=== PATIENT | male | born 1950 | race Caucasian/White ===

== ENCOUNTER → 2017-06-18 13:51 | Outpatient (CLI) | payer OTHER, MEDICARE, SELFPAY ==
--- NOTE | 2017-06-18 14:04 | XR_ITS ---
XR foot RT min 3V HISTORY: ITS.REASON: RT FOOT PAIN ORDERING PHYSICIAN: Jorge Marcum MD PATIENT AGE: 66 years COMPARISON: None FINDINGS: No fracture or dislocation. No lytic or blastic change. There is normal mineralization.. There are moderate osteoarthritic changes of the first metatarsophalangeal joint with bony hypertrophic change. There is a small calcaneal spur. IMPRESSION: Osteoarthritic changes of the first metatarsophalangeal joint
== END ==
PROVIDERS: PCP Family Medicine; Visit Provider Family Medicine
DX: M79.671 Pain in right foot (principal)
CPT/HCPCS: 73630

== ENCOUNTER → 2017-11-30 07:40 | Outpatient (CLI) | payer OTHER, MEDICARE, SELFPAY ==
--- NOTE | 2017-11-30 07:48 | CA_ITS ---
PROCEDURE: 2-D M-mode and color Doppler study INDICATIONS FOR THE TEST: Chest pain COPD Heart Murmur Tobacco Smoking Palpitations Fatigue Syncope Edema HypertensionXDiabetes MellitusX Rheumatic Fever SOB DOEXObesityXHyperlipidemiaX Family History HD Additional History CAD,CABG,CM TDS IN PLAX,PSAX VIEWS PATIENT INFORMATION HEIGHT: 74 WEIGHT:252 GENDER: Male B/P:110/70 2-D/M-MODE INTERPRETATION: 2-D MEASUREMENTS OBSERVED VALUES IN CMS Right Ventricular Dimension (RVDd) 1.5 Interventricular Septum (Thickness)(IVsd) .9 Left Ventricular Internal Dimensions(LVIDd) 6.2 Left Ventricular Posterior Wall (Thickness)(LVPWd) .9 Aortic Root 3.9 Aortic Cusp Separation 1.7 Left Atrial Dimensions (LAD) 3.6 2D 1. Left atrium is mildly enlarged, left ventricle is mildly dilated, there is mild concentric left ventricular hypertrophy, visually estimated ejection fraction approximately 45%, there appears to be inferior wall hypokinesis. Endocardial subsequent poorly visualized, a repeat study with Definity contrast is recommended. 2. The right atrium and right ventricle are normal size and contractility. 3. The aortic valve is minimally thickened and fibrosed. 4. The mitral and tricuspid valve leaflets are minimally thickened. 5. Pulmonic valve is poorly visualized. 6. No significant pericardial effusion noted. DOPPLER INTERROGATION: Doppler interrogation of the aortic, mitral and tricuspid valvular presence of mild mitral and tricuspid regurgitation, tricuspid regurgitant jet velocity is insufficient for calculation of the right ventricular systolic pressure, diastolic parameters are inconclusive. CONCLUSION: 1. Mildly enlarged left atrium, mildly dilated left ventricle, visually estimated ejection fraction of 45% with segmental wall motion abnormality described above, repeat study with Definity contrast is recommended. Diastolic parameters are inconclusive 2. Mild mitral and tricuspid regurgitation. 3. No significant pericardial effusion noted.
[2017-11-30 08:48] LABS: Basophils # 0.1 K/mm3 (0-0.2); Basophils % 0.9 % (0.1-2.0); Eosinophils # 0.2 K/mm3 (0.0-0.4); Eosinophils % 2.5 % (0.1-12.0); Hemoglobin 14.8 g/dL (14.1-18.0); Lymphocytes # 2.1 K/mm3 (0.7-4.5); Lymphocytes % 29.1 K/mm3 (10-50); Mean Corpuscular HGB Conc 32.9 g/dL (31.8-35.4); Mean Corpuscular Hemoglobin 31.7 pg (27.0-31.2); Mean Corpuscular Volume 96.4 fl (80-94); Mean Platelet Volume 7.7 fl (7.4-10.4); Monocytes # 0.5 K/mm3 (0.1-1.0); Monocytes % 6.8 % (1.7-9.3); Neutrophils # 4.4 K/mm3 (1.8-7.8); Neutrophils % 60.8 % (37.0-80.0); Platelet Count 203 K/mm3 (142-424); Red Blood Count 4.67 M/mm3 (4.60-6.20); Red Cell Distribution Width 13.4 % (11.5-17.5); White Blood Count 7.2 K/mm3 (4.8-10.8)
[2017-11-30 09:21] LABS: Alanine Aminotransferase 27 U/L (12-78); Albumin Level 3.9 gm/dL (3.4-5.0); Albumin/Globulin Ratio 1.3 (1.1-1.8); Alkaline Phosphatase 90 U/L (46-116); Anion Gap 13.1 mEq/L (5-15); Aspartate Amino Transferase 16 U/L (15-37); Bilirubin,Total 0.8 mg/dL (0.2-1.0); Blood Urea Nitrogen 15 mg/dL (7-18); Carbon Dioxide 30 mmol/L (21.0-32.0); Chloride 104 mmol/L (98-107); Chol/HDL Ratio 2.4 (1-3.5); Cholesterol 136 mg/dL (140-200); Creatinine,Serum 1.08 mg/dL (0.70-1.30); Estimated Glomerular Filt Rate 68 ml/min (>60); GFR (African American) 83 ML/MIN (>60); Globulin 3.1 gm/dl (1.3-3.2); Glucose 156 mg/dL (74-106); HDL Cholesterol 57 mg/dL (27-67); LDL Cholesterol 67 mg/dL (0-130); Potassium 4.1 mmoL/L (3.5-5.1); Sodium 143 mmol/L (136-145); Thyroid Stimulating Hormone 2.18 uIU/ml (0.358-3.740); Triglycerides 58 mg/dL (30-200); VLDL Cholesterol 12 mg/dL (0-40)
== END ==
PROVIDERS: Family Provider Family Medicine; PCP Family Medicine; Visit Provider Physician Assistant
DX: I25.10 Atherosclerotic heart disease of native coronary artery without angina pectoris (principal); I42.9 Cardiomyopathy, unspecified; I10 Essential (primary) hypertension; R53.83 Other fatigue
CPT/HCPCS: 36415; 80053; 80061; 84443; 85025; 93306

== ENCOUNTER → 2017-12-01 13:13 | Outpatient (CLI) | payer OTHER, MEDICARE, SELFPAY | PROVIDERS: PCP Family Medicine; Visit Provider Physician Assistant | DX: R55 Syncope and collapse (principal); R00.1 Bradycardia, unspecified | CPT/HCPCS: 93005; 93225; 93226 ==

== ENCOUNTER 2017-12-04 01:52 | Observation (INO) ==
[2017-12-04 02:23] LABS: Basophils # 0.1 K/mm3 (0-0.2); Basophils % 0.6 % (0.1-2.0); Eosinophils # 0.2 K/mm3 (0.0-0.4); Eosinophils % 1.8 % (0.1-12.0); Hematocrit 45.9 % (42.0-52.0); Hemoglobin 14.6 g/dL (14.1-18.0); Lymphocytes # 3.1 K/mm3 (0.7-4.5); Lymphocytes % 32.5 K/mm3 (10-50); Mean Corpuscular HGB Conc 31.9 g/dL (31.8-35.4); Mean Corpuscular Hemoglobin 31.1 pg (27.0-31.2); Mean Corpuscular Volume 97.7 fl (80-94); Mean Platelet Volume 7.7 fl (7.4-10.4); Monocytes # 0.7 K/mm3 (0.1-1.0); Monocytes % 7.4 % (1.7-9.3); Neutrophils # 5.4 K/mm3 (1.8-7.8); Neutrophils % 57.6 % (37.0-80.0); Platelet Count 204 K/mm3 (142-424); Red Cell Distribution Width 13.6 % (11.5-17.5); White Blood Count 9.4 K/mm3 (4.8-10.8)
[2017-12-04 02:41] LABS: Anion Gap 11.6 mEq/L (5-15); Blood Urea Nitrogen 11 mg/dL (7-18); Calcium 8.6 mg/dL (8.5-10.1); Carbon Dioxide 28 mmol/L (21.0-32.0); Chloride 103 mmol/L (98-107); Glucose 194 mg/dL (74-106); Potassium 3.6 mmoL/L (3.5-5.1); Sodium 139 mmol/L (136-145)
--- NOTE | 2017-12-04 03:32 | Emergency Department Note ---
ED Disposition Clinical Impression: Chest pain Qualifiers: Chest pain type: precordial pain Qualified Code(s): R07.2 - Precordial pain Disposition: Admitted as Observation Condition on Discharge: Good Referrals: Jorge Marcum MD [Primary Care Provider] - - Critical Care Critical Care Time: No Attestation: On 12/04/17, the high probability of a clinically significant, sudden or life threatening deterioration of the following system(s) required my full and direct attention, intervention and personal management. The time I documented below is in addition to time spent performing reported procedures but includes the following listed in this critical care notation. Medical Decision Making - Medical Records Medical records reviewed: Yes: I reviewed the patient's medical records. - Chauncey Inquiry Pt receiving controlled substance: No Vital Signs: 12/04/17 01:54 12/04/17 02:05 12/04/17 02:46 Temperature 98.1 F Temperature Source Oral Pulse Rate 58 L Pulse Rate [Left Radial] 59 L 58 L Respiratory Rate 18 16 Blood Pressure [Right Arm] 138/79 121/86 Blood Pressure Mean [Right Arm] 98 97 Blood Pressure Source [Right Arm] Automatic Cuff Automatic Cuff Blood Pressure Position [Right Arm] Sitting Sitting 02 Sat by Pulse Oximetry 94 L Oxygen Delivery Method Room Air 12/04/17 02:52 12/04/17 02:57 12/04/17 03:02 Temperature Temperature Source Pulse Rate Pulse Rate [Left Radial] 50 L 48 L 51 L Respiratory Rate Blood Pressure [Right Arm] 68/40 84/54 94/64 Blood Pressure Mean [Right Arm] 49 64 74 Blood Pressure Source [Right Arm] Automatic Cuff Automatic Cuff Blood Pressure Position [Right Arm] Supine Sitting 02 Sat by Pulse Oximetry Oxygen Delivery Method 12/04/17 03:08 Temperature Temperature Source Pulse Rate Pulse Rate [Left Radial] 51 L Respiratory Rate Blood Pressure [Right Arm] 109/60 Blood Pressure Mean [Right Arm] 76 Blood Pressure Source [Right Arm] Automatic Cuff Blood Pressure Position [Right Arm] Sitting 02 Sat by Pulse Oximetry Oxygen Delivery Method - Lab Data Lab results reviewed: Yes: I reviewed the patient's lab results. Lab Results 12/04/17 01:30: WBC 9.4, RBC 4.70, Hgb 14.6, Hct 45.9, MCV 97.7 H, MCH 31.1, MCHC 31.9, RDW 13.6, Plt Count 204, MPV 7.7, Neut % (Auto) 57.6, Lymph % (Auto) 32.5, Turner % (Auto) 7.4, Eos % (Auto) 1.8, Baso % (Auto) 0.6, Neut # (Auto) 5.4 , Lymph # (Auto) 3.1, Turner # (Auto) 0.7, Eos # (Auto) 0.2, Baso # (Auto) 0.1 12/04/17 01:30: Sodium 139, Potassium 3.6, Chloride 103, Carbon Dioxide 28, Anion Gap 11.6, BUN 11, Creatinine 1.09, Estimated Creat Clear 107, Estimated GFR 67, Est GFR ( Amer) 82, Glucose 194 H, Calcium 8.6, Troponin I < 0.02 Result diagrams: 12/04/17 01:30 12/04/17 01:30 Orders (Tests/Meds): ED MEDICATIONS Generic Name Dose Route Start Last Admin Trade Name Freq PRN Reason Stop Dose Admin Sodium Chloride 500 mls @ 999 mls/hr 12/04/17 03:15 12/04/17 02:55 Sod Chlor 0.9% 1000ml Bag IV 12/04/17 03:45 999 mls/hr .Q31M EVER Administration Discontinued Medications Generic Name Dose Route Start Last Admin Trade Name Freq PRN Reason Stop Dose Admin Aspirin 162 mg 12/04/17 02:27 12/04/17 02:28 Aspirin 81mg Chewable Tablet PO 12/04/17 02:28 162 mg ONCE ONE Administration Famotidine 20 mg 12/04/17 03:11 12/04/17 03:12 Pepcid 20mg/2ml Vial IV 12/04/17 03:12 20 mg ONCE ONE Administration Metoclopramide HCl 10 mg 12/04/17 03:11 12/04/17 03:12 Reglan 10mg/2ml Vial IVP 12/04/17 03:12 10 mg ONCE ONE Administration Nitroglycerin 0.4 mg 12/04/17 02:44 12/04/17 02:47 Nitrostat 0.4mg Sl Tablet SL 12/04/17 02:45 0.4 mg ONCE ONE Administration ORDERS Category Date Time Status Chest XR 2 view (NOT portable) [XR chest 2V] Stat Exams 12/04/17 02:01 Taken - Radiology Data #1 Image(s): Chest Image Reviewed: Yes I reviewed the patient's radiology image Preliminary Findings: Abnormal (cm) - ECG Data Tracing #1 I reviewed this ECG and interpreted as documented below: Arrhythmias present: sinus michael Ischemic changes: non-specific ST-T wave changes - Physician Consults Physician Consulted: deven Reason -: Admission Chest Pain HPI - General Chief Complaint: Chest Pain Stated Complaint: chest pain Time Seen by Provider: 12/04/17 02:05 Mode of Arrival: EMS Source of Information: Patient, Relative, Medical Record Limitations: No Limitations Description of Symptoms (Recalled from ER Triage Doc. by RN): to ed per squad with c/o sharp chest pain worse with movement x 3 days. denies any sob, nausea, vomiting or diaphoresis. pt states had recent halter monitor due to haveing episodes of dizziness, nausea. pt denies dizziness at present. cpta iv - History of Present Illness HPI narrative: pt with ant chest pain tonight with hx of cad MD complaint: chest pain indicative of cardiac Onset (ago): hour(s) Duration: now resolved Activity at onset: during rest Pain location: substernal Severity: moderate Quality: aching Relieving factors: nitroglycerin, remaining still Treatments prior to or on arrival for Cardiac Chest Pain: aspirin - ZULEMA Score Non-Stemi Age of patient: 65 yrs or more Number of risk factors for CAD: Presence of 3 or more Prior coronary artery stenosis(seen in coronary angiography): Less than 50% ST-Segment deviation on ECG (more than 1 min): Absent Prior aspirin intake: ASA intake in the last 7 days Severe anginal chest pain: Two or more episodes in last 24 hours Elevated cardiac markers(CK-MB or troponin): Absent Non-Stemi Risk Score: 4 - Related Data Prior Cardiac Testing/Procedures: CABG Home Medications Medication Instructions Recorded Confirmed Aspirin/Calcium Carbonate/Mag 150 mg PO DAILY 10/29/17 12/04/17 [Aspirin Buffered 325 mg Tab] Atorvastatin Calcium [Atorvastatin 80 mg PO HS 10/29/17 12/04/17 80mg Tab] Bisoprolol Fumarate [Zebeta 5mg 5 mg PO HS 10/29/17 12/04/17 tablet] Canagliflozin/Metformin HCl 1 each PO DAILY 10/29/17 12/04/17 [Invokamet 150-1,000 mg Tablet] Gabapentin [Gabapentin 300mg Cap] 300 mg PO NEEDED PRN 10/29/17 12/04/17 Lisinopril [Zestril 5mg 5 mg PO DAILY 10/29/17 12/04/17 Tablet] Multivitamin [Multivitamins] 1 each PO DAILY 10/29/17 12/04/17 Sitagliptin Phosphate [Januvia] 100 mg PO DAILY 10/29/17 12/04/17 Allergies Allergy/AdvReac Type Severity Reaction Status Date / Time No Known Allergies Allergy Verified 10/29/17 06:44 [facility] History I have reviewed the patient's past medical history: Yes Medical History: Reports:: Diabetes Mellitus Type 2 (NIDDM), Hyperlipidemia, Hypertension, Myocardial Infarction (2011) Denies:: Diabetes Mellitus Type 1, Internal Pacemaker, Lung Disease (sleep apnea-wears cpap), Seizures Laterality Cases: Left: Arthroscopy Knee Other Surgeries: Yes: Cardiac Catheterization, Coronary Stent (5), Hernia Repair. No: Pacemaker - Social History Alcohol Intake: never - Psychiatric History Expresses thoughts of harming self/others: None Suicide Plan Description: No Plan ROS Obtained: Yes All systems reviewed & no additional complaints - Constitutional Constitutional: Denies fever(s) - Eyes Eyes: Denies change in vision - ENT Ears, Nose, Mouth, and Throat: Denies sore throat - Cardiovascular Cardiovascular: Reports chest pain, Denies radiating jaw, neck or arm pain, Reports slow heart rate - Respiratory Respiratory: No cough - Gastrointestinal Gastrointestingal: Denies: abdominal pain - Genitourinary Male Genitourinary: Denies hematuria - Musculoskeletal Musculoskeletal: Denies joint pain, Denies joint swelling - Integumentary/Breasts Skin/Breast: Denies rash - Neurologic Neurologic: Denies headache(s), Denies seizure-like activity Physical Exam - General General appearance: in no apparent distress - Head Head exam: normocephalic - Eye Eye exam: Present: PERRL, EOMI - ENT ENT exam: Absent: mucous membranes moist - Neck Neck exam: Absent: trachea midline - Respiratory Respiratory exam: Present: normal lung sounds bilaterally. Absent: respiratory distress - Cardiovascular Cardiovascular exam: Present: regular rate, systolic murmur, +S4 - Abdominal Exam Abdominal exam: Present: soft - Extremities Exam Extremities exam: Absent: calf tenderness - Neurological Exam Neurological exam: Present: alert, oriented X3, CN II-XII intact - Psychiatric Psychiatric exam: Present: normal affect - Skin Skin exam: Absent: rash
[2017-12-04 07:25] LABS: Basophils % 0.5 % (0.1-2.0); Eosinophils # 0.1 K/mm3 (0.0-0.4); Eosinophils % 0.9 % (0.1-12.0); Hematocrit 37.5 % (42.0-52.0); Hemoglobin 13.9 g/dL (14.1-18.0); Lymphocytes # 1.9 K/mm3 (0.7-4.5); Mean Corpuscular Hemoglobin 35.9 pg (27.0-31.2); Mean Platelet Volume 7.8 fl (7.4-10.4); Monocytes # 0.6 K/mm3 (0.1-1.0); Monocytes % 6.2 % (1.7-9.3); Neutrophils # 6.2 K/mm3 (1.8-7.8); Neutrophils % 70.4 % (37.0-80.0); Platelet Count 161 K/mm3 (142-424); Red Blood Count 3.87 M/mm3 (4.60-6.20); Red Cell Distribution Width 13.3 % (11.5-17.5); White Blood Count 8.9 K/mm3 (4.8-10.8)
[2017-12-04 07:41] LABS: Anion Gap 11.2 mEq/L (5-15); Blood Urea Nitrogen 10 mg/dL (7-18); Calcium 8.2 mg/dL (8.5-10.1); Carbon Dioxide 27 mmol/L (21.0-32.0); Chloride 106 mmol/L (98-107); Chol/HDL Ratio 2.4 (1-3.5); Cholesterol 129 mg/dL (140-200); Glucose 143 mg/dL (74-106); HDL Cholesterol 53 mg/dL (27-67); LDL Cholesterol 61 mg/dL (0-130); Potassium 4.2 mmoL/L (3.5-5.1); Sodium 140 mmol/L (136-145); Triglycerides 76 mg/dL (30-200); VLDL Cholesterol 15 mg/dL (0-40)
--- NOTE | 2017-12-04 12:01 | Pharmacy Consult Notes ---
[facility] Pharmacy VTE Monitoring - Patient Demographics Admission date: 12/04/17 Report Date: 12/04/17 Time: 12:00 Allergies/Adverse Reactions: Patient Allergies No Known Allergies Allergy (Verified 10/29/17 06:44) Height: 1.88 m Weight: 114.447 kg Patient Problems: Current Active Problems Chest pain (Acute) - VTE Risk Labs: VTE Related Lab Results Hgb 13.9 g/dL (14.1-18.0) L 12/04/17 05:56 Hct 37.5 % (42.0-52.0) L 12/04/17 05:56 Plt Count 161 K/mm3 (142-424) 12/04/17 05:56 BUN 10 mg/dL (7-18) 12/04/17 05:56 Creatinine 0.94 mg/dL (0.70-1.30) 12/04/17 05:56 Estimated Creat Clear 116 mL/min (0-300) 12/04/17 05:56 VTE Score: 2 - Prophylaxis VTE Prophylaxis Ordered?: Yes Types of VTE Prophylaxis: TEDS Knee High Location of Applied Device: Bilateral Lower Extremeties - VTE Diagnosis Confirmed Comment: UMER REDMAN ORDERED
--- NOTE | 2017-12-04 13:41 | H&P/Discharge Summary ---
General - General Admission date:: 12/04/17 Discharge date: 12/04/17 *Admission Date: 12/04/17 *Chief complaint: Chest pain *History of present illness: 67 year old male with a history of coronary artery disease and DM type 2, presented to [facility] ER last night complaining of chest pain. The pain was in the center of his chest and was worse with palpation over the chest. He did get some relief with sublingual NTG. Patient has had migrating chest pain off and on for the past week. 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 Labs, EKG and Holter monitor were ordered. Patient has been doing a lot of work around his house including planting shrubs and painting. He thinks the pain may be caused from all the extra work he has been doing. Patient denies radiation of pain to neck or left arm, he has no leg edema or shortness of breath. [facility] History I have reviewed the patient's past medical history: Yes Medical History: Reports:: Coronary Artery Disease, Diabetes Mellitus Type 2 ( NIDDM), Hyperlipidemia, Hypertension, Myocardial Infarction (2011) Denies:: Cancer, Diabetes Mellitus Type 1, Internal Pacemaker, Lung Disease ( sleep apnea-wears cpap), MRSA, Seizures Other Medical History: Reports: Other (sleep apnea) Laterality Cases: Left: Arthroscopy Knee Other Surgeries: Yes: CABG, Cardiac Catheterization, Hernia Repair. No: Pacemaker. Comment Only: Coronary Stent (5) Amputation: No Fractures: No - *Social History Educational Level: Completed High School Smoking Status: Never smoker Alcohol Intake: never Occupational Status: employed, retired Housing: house Household Members: spouse - Psychiatric History Expresses thoughts of harming self/others: None Suicide Plan Description: No Plan *Family Hx:: No significant family history Review of Systems - Constitutional Denies body ache(s), Denies weight loss - Eyes Denies change in vision - ENT Denies difficulty swallowing - *Cardiovascular Denies fast heart rate - *Respiratory Denies cough - *Gastrointestinal Denies abdominal pain - *Genitourinary Denies difficulty urinating - *Musculoskeletal Denies joint swelling - Integumentary/Breasts Denies rash - *Neurologic Reports dizziness, Denies headache(s), Denies seizure-like activity - Psychiatric Denies anxiety - Endocrine Denies excessive sweating - Hematologic/Lymphatic Denies easy bleeding, Denies easy bruising Exam Vital signs and Labs for Last 24 Hours: Temp Pulse Resp BP Pulse Ox 97.6 F 54 L 18 126/77 96 12/04/17 12:00 12/04/17 12:00 12/04/17 12:00 12/04/17 12:00 12/04/17 12:00 Laboratory Results - last 24 hr 12/04/17 01:30: WBC 9.4, RBC 4.70, Hgb 14.6, Hct 45.9, MCV 97.7 H, MCH 31.1, MCHC 31.9, RDW 13.6, Plt Count 204, MPV 7.7, Neut % (Auto) 57.6, Lymph % (Auto) 32.5, Cache % (Auto) 7.4, Eos % (Auto) 1.8, Baso % (Auto) 0.6, Neut # (Auto) 5.4 , Lymph # (Auto) 3.1, Cache # (Auto) 0.7, Eos # (Auto) 0.2, Baso # (Auto) 0.1 12/04/17 01:30: Sodium 139, Potassium 3.6, Chloride 103, Carbon Dioxide 28, Anion Gap 11.6, BUN 11, Creatinine 1.09, Estimated Creat Clear 107, Estimated GFR 67, Est GFR ( Amer) 82, Glucose 194 H, Calcium 8.6, Troponin I < 0.02 12/04/17 04:10: Troponin I < 0.02 12/04/17 05:56: WBC 8.9, RBC 3.87 L, Hgb 13.9 L, Hct 37.5 L, MCV 97.0 H, MCH 35.9 H, MCHC 37.0 H, RDW 13.3, Plt Count 161, MPV 7.8, Neut % (Auto) 70.4, Lymph % (Auto) 22.0, Cache % (Auto) 6.2, Eos % (Auto) 0.9, Baso % (Auto) 0.5, Neut # (Auto) 6.2, Lymph # (Auto) 1.9, Cache # (Auto) 0.6, Eos # (Auto) 0.1, Baso # (Auto) 0.0 12/04/17 05:56: Sodium 140, Potassium 4.2, Chloride 106, Carbon Dioxide 27, Anion Gap 11.2, BUN 10, Creatinine 0.94, Estimated Creat Clear 116, Estimated GFR 80, Est GFR ( Amer) 97, Glucose 143 H D, Calcium 8.2 L, Troponin I < 0.02, Triglycerides 76, Cholesterol 129 L, LDL Cholesterol 61, VLDL Cholesterol 15, HDL Cholesterol 53, Cholesterol/HDL Ratio 2.4 12/04/17 06:12: POC Glucose 135 H 12/04/17 10:15: Troponin I < 0.02 12/04/17 11:18: POC Glucose 157 H Vital Signs Temp Pulse Pulse Resp BP BP Pulse Ox 12/04/17 12:00 97.6 F 54 L 18 126/77 96 12/04/17 08:00 97.9 F 60 56 L 18 126/68 99 12/04/17 07:38 55 L 98 12/04/17 04:50 98.2 F 51 L 18 129/75 97 12/04/17 04:36 50 L 12/04/17 04:20 98.3 F 50 L 16 147/78 12/04/17 03:08 51 L 109/60 12/04/17 03:02 51 L 94/64 12/04/17 02:57 48 L 84/54 12/04/17 02:52 50 L 68/40 12/04/17 02:46 58 L 16 121/86 12/04/17 02:05 58 L 12/04/17 01:54 98.1 F 59 L 18 138/79 94 L Intake and Output 12/04/17 12/04/17 12/04/17 03:59 11:59 19:59 Intake Total 460 / 460 Balance 460 / 460 Intake: Intake, Oral Amount 460 / 460 Other: Weight 253 lb 252 lb 5 oz 252 lb 5 oz Patient Weight 12/05/17 11:59 Weight 252 lb 5 oz I & O for Last 24 hours: Intake & Output 12/02/17 12/03/17 12/04/17 12/05/17 11:59 11:59 11:59 11:59 Intake Total 460 / 460 Balance 460 / 460 Weight 252 lb 5 oz 252 lb 5 oz - Constitutional no acute distress - *Routine HEENT Exam ENT: Present: mucous membranes moist - *Routine Neck Exam Present: supple, full ROM. Absent: JVD - Routine Chest/Breast/Axilla Exam Chest wall: Present: tenderness (anterior) - *Routine Respiratory Exam Present: CTA bilaterally - *Routine Cardiovascular Exam Present: RRR, Normal S1, Normal S2 - *Routine Abdominal Exam Present: soft, normoactive bowel sounds. Absent: tenderness - *Routine Extremities Exam Absent: cyanosis, clubbing, edema - *Routine Skin Exam Present: warm. Absent: rash - *Routine Neurological Exam Present: alert, oriented X3, CN II-XII intact, moving all extremities, normal tone Hospital Course Hospital Course: Patient was admitted for observation and serial cardiac enzymes. All cardiac enzymes were normal. Patient was treated with Toradol IV x1 and his chest pain improved greatly. He is tolerating a regular diet and would like to be discharged home and complete his cardiac workup as an outpatient. Plan to continue Toradol by mouth, f/u in office next week. Results Labs on day of discharge: Labs from last 24 hours 12/04/17 12/04/17 12/04/17 11:18 10:15 06:12 WBC RBC Hgb Hct MCV MCH MCHC RDW Plt Count MPV Neut % (Auto) Lymph % (Auto) Cache % (Auto) Eos % (Auto) Baso % (Auto) Neut # (Auto) Lymph # (Auto) Cache # (Auto) Eos # (Auto) Baso # (Auto) Sodium Potassium Chloride Carbon Dioxide Anion Gap BUN Creatinine Estimated Creat Clear Estimated GFR Est GFR ( Amer) Glucose POC Glucose 157 H 135 H Calcium Troponin I < 0.02 Triglycerides Cholesterol LDL Cholesterol VLDL Cholesterol HDL Cholesterol Cholesterol/HDL Ratio 12/04/17 12/04/17 12/04/17 05:56 05:56 04:10 WBC 8.9 RBC 3.87 L Hgb 13.9 L Hct 37.5 L MCV 97.0 H MCH 35.9 H MCHC 37.0 H RDW 13.3 Plt Count 161 MPV 7.8 Neut % (Auto) 70.4 Lymph % (Auto) 22.0 Cache % (Auto) 6.2 Eos % (Auto) 0.9 Baso % (Auto) 0.5 Neut # (Auto) 6.2 Lymph # (Auto) 1.9 Cache # (Auto) 0.6 Eos # (Auto) 0.1 Baso # (Auto) 0.0 Sodium 140 Potassium 4.2 Chloride 106 Carbon Dioxide 27 Anion Gap 11.2 BUN 10 Creatinine 0.94 Estimated Creat Clear 116 Estimated GFR 80 Est GFR ( Amer) 97 Glucose 143 H D POC Glucose Calcium 8.2 L Troponin I < 0.02 < 0.02 Triglycerides 76 Cholesterol 129 L LDL Cholesterol 61 VLDL Cholesterol 15 HDL Cholesterol 53 Cholesterol/HDL Ratio 2.4 12/04/17 12/04/17 01:30 01:30 WBC 9.4 RBC 4.70 Hgb 14.6 Hct 45.9 MCV 97.7 H MCH 31.1 MCHC 31.9 RDW 13.6 Plt Count 204 MPV 7.7 Neut % (Auto) 57.6 Lymph % (Auto) 32.5 Cache % (Auto) 7.4 Eos % (Auto) 1.8 Baso % (Auto) 0.6 Neut # (Auto) 5.4 Lymph # (Auto) 3.1 Cache # (Auto) 0.7 Eos # (Auto) 0.2 Baso # (Auto) 0.1 Sodium 139 Potassium 3.6 Chloride 103 Carbon Dioxide 28 Anion Gap 11.6 BUN 11 Creatinine 1.09 Estimated Creat Clear 107 Estimated GFR 67 Est GFR ( Amer) 82 Glucose 194 H POC Glucose Calcium 8.6 Troponin I < 0.02 Triglycerides Cholesterol LDL Cholesterol VLDL Cholesterol HDL Cholesterol Cholesterol/HDL Ratio DS: Diagnosis - Discharge Diagnosis (1) Chest pain Status: Acute (2) CAD (coronary artery disease) Status: Chronic (3) DM2 (diabetes mellitus, type 2) Status: Chronic (4) HTN (hypertension) Status: Chronic (5) Hyperlipidemia Status: Chronic Discharge Medications Discharge Medications: Home Medications Medication Instructions Recorded Confirmed Type Aspirin/Calcium Carbonate/Mag 0.5 tab PO DAILY 10/29/17 12/04/17 History [Aspirin Buffered 325 mg Tab] Atorvastatin Calcium [Atorvastatin 80 mg PO HS 10/29/17 12/04/17 History 80mg Tab] Bisoprolol Fumarate [Zebeta 5mg 2.5 mg PO HS 10/29/17 12/04/17 History tablet] Canagliflozin/Metformin HCl 2 each PO DAILY 10/29/17 12/04/17 History [Invokamet 150-1,000 mg Tablet] Lisinopril [Zestril 5mg 5 mg PO DAILY 10/29/17 12/04/17 History Tablet] Multivitamin [Multivitamins] 1 each PO DAILY 10/29/17 12/04/17 History Sitagliptin Phosphate [Januvia] 100 mg PO DAILY 10/29/17 12/04/17 History Ketorolac Tromethamine [Toradol 10 mg PO Q6H 12/04/17 12/04/17 History 10mg tablet] Disposition Disposition: Home, Self-Care
== END 2017-12-04 14:26 | disposition home or self-care (01) ==
LOC: ER 01:52 → 2ND 01:52
PROVIDERS: ADMIT Family Medicine; ATTEND Family Medicine
CPT/HCPCS: 36415; 71020; 71046; 80048; 80061; 82962; 84484; 85025; 93005; 96365; 96375; 99284; G0378

== ENCOUNTER → 2017-12-17 06:21 | Outpatient (CLI) | payer OTHER, MEDICARE, SELFPAY ==
--- NOTE | 2017-12-17 | CI_ITS ---
Cerebrovascular Exam Indications: 433.10 Occlusion/stenosis of carotid artery without cerebral infarction. IMPRESSIONS 1. The bilateral vertebral arteries are patent with normal antegrade flow. 2. Study suggests 50-69% stenosis involving the right internal carotid artery. 3. Study suggests less than 20% stenosis involving the left internal carotid artery. No change from the study of 24-Apr-2017. Carotid duplex study. Complete study and Doppler flow study including spectral analysis, color and herndon scale imaging. Height: Height: 188cm. Height: 74in. Weight: Weight: 113.4kg. Weight: 249.5lb. Body mass index: BMI: 32.1kg/m^2. Body surface area: BSA: 2.46m^2. Location: Vascular laboratory. Patient status: Outpatient. Tables: Arterial flow: + +--------+--------+ Location V sys V ed + +--------+--------+ Right CCA - proximal 86.4cm/s 20.4cm/s + +--------+--------+ Right CCA - distal 62.9cm/s 18.1cm/s + +--------+--------+ Right ECA 102cm/s -------- + +--------+--------+ Right ICA - proximal 126cm/s 36.9cm/s + +--------+--------+ Right ICA - mid 88.8cm/s 25.9cm/s + +--------+--------+ Right ICA - distal 83.3cm/s 33.8cm/s + +--------+--------+ Right vertebral 37.7cm/s -------- + +--------+--------+ Left CCA - proximal 93.5cm/s 29.9cm/s + +--------+--------+ Left CCA - distal 74.6cm/s 25.9cm/s + +--------+--------+ Left ECA 62.9cm/s -------- + +--------+--------+ Left ICA - proximal 60.5cm/s 22.3cm/s + +--------+--------+ Left ICA - mid 61.6cm/s 25.2cm/s + +--------+--------+ Left vertebral 41.7cm/s -------- + +--------+--------+ Velocity ratios: + + + + + + Right, V sys Right, V ed Left, V sys Left, V ed + + + + + + Max ICA/dist CCA 2 2.04 0.83 0.97 + + + + + + (Report amended ) Electronically signed by: Lefty Singh [id number]
--- NOTE | 2017-12-17 06:45 | NM_ITS ---
History and Indications: History of VA, hypertension, diabetes, Procedure: Patient exercised on Omi protocol 7 minutes and 45 seconds, resting heart rate was 59 bpm resting blood pressure 146/81, with exercise maximum heart rate achieved was 1 42 bpm which is equal to 93% of the maximum predicted heart rate and a blood pressure was 197/108. Test was started due to shortness of breath patient denied any complained of chest pain. Patient has good exercise capacity achieved 10.1mets of workload on treadmill, the blood pressure response to exercise was hypertensive. Electrocardiogram: Resting electrocardiogram showed sinus rhythm nonspecific ST-T changes, possible inferior infarct age indeterminate, with exercise excessive baseline artifact seen, less than 1.[address] segment depression noted from the baseline EKG. The EKG portion of the exercise Myoview is nondiagnostic. Cardiac stress and resting SPECT images: Cardiac stress and resting SPECT images were obtained using technetium 99 Myoview 31.8 mCi at stress and 10.2 mCi at rest. Gated SPECT further analysis of segmental wall motion and calculation of the ejection fraction also done. Cardiac stress and rest images show reversible ischemia involving the inferolateral wall, computer derived ejection fraction is 41% with mild inferolateral wall hypokinesis, right ventricle is normal size and contractility. Conclusion: 1. The EKG portion of the exercise Myoview is nondiagnostic. Patient has good exercise capacity achieved 10.1mets of workload on treadmill, the blood pressure response to exercise was hypertensive, test was stopped due to shortness of breath. 2. Scintigraphic evidence of reversible ischemia involving the inferolateral wall, computer derived ejection fraction is 41% with segmental wall motion abnormality described above, right ventricle is normal size and contractility. 3. Abnormal exercise Myoview study.
--- NOTE | 2017-12-17 09:05 | HMH.ITSHM ---
bisoprolol atorvastatin lisinopril aspirin invokanet gabapentin januvia
== END ==
LOC: RAD 06:24
PROVIDERS: Family Provider Family Medicine; PCP Family Medicine; Visit Provider Physician Assistant
DX: R07.9 Chest pain, unspecified (principal); R55 Syncope and collapse; R42 Dizziness and giddiness; I25.10 Atherosclerotic heart disease of native coronary artery without angina pectoris; I65.23 Occlusion and stenosis of bilateral carotid arteries
CPT/HCPCS: 78452; 93017; 93880; A9502

== ENCOUNTER → 2018-03-10 13:29 | Outpatient (REF) | payer OTHER, MEDICARE, SELFPAY | LOC: LAB 13:29 | PROVIDERS: Visit Provider Podiatrist | DX: L60.8 Other nail disorders (principal) | CPT/HCPCS: 87102; 87206; 87220 ==

== ENCOUNTER → 2018-04-20 12:20 | Outpatient (CLI) | payer OTHER, MEDICARE, SELFPAY ==
[2018-04-20 14:07] LABS: Alanine Aminotransferase 27 U/L (12-78); Aspartate Amino Transferase 17 U/L (15-37)
== END ==
PROVIDERS: Visit Provider Podiatrist
DX: B35.1 Tinea unguium (principal)
CPT/HCPCS: 36415; 84450; 84460

== ENCOUNTER → 2018-04-27 10:51 | Outpatient (CLI) | payer OTHER, MEDICARE, SELFPAY ==
--- NOTE | 2018-04-27 10:53 | US_ITS ---
US Arterial Ankle Brachial Ind History: Hypertension, diabetes, claudication, skin color change ITS.REASON: skin changes ORDERING PHYSICIAN: Amber Means DPM PATIENT AGE: 67 years TECHNIQUE: Segmental pressures obtained of both right and left leg. These are compared to brachial blood pressure to yield index at each level sampled including summary DIPTI. The data sheets from the procedure are available in PACS FINDINGS Rest study only performed today No prior studies available for comparison. Blood pressures reported are in millimeters mercury. RIGHT LEG DIPTI = 1.2. RIGHT LEG TBI=0.8 Brachial BP: 134 Thigh BP: 158 Calf BP: 159 Ankle PT: 165 Ankle DP : 164 Digit =111 LEFT LEG DIPTI = 1.3 LEFT LEG TBI= 0.8 Brachial BPD: 132 Thigh BP: 161 Calf BP: 177 Ankle PT:170 Ankle DP: 159 Digit = 100 Pulses and waveforms: Normal IMPRESSION: The ABIs as reported above are within normal limits. Waveforms and pulses are also unremarkable.
== END ==
PROVIDERS: PCP Family Medicine; Visit Provider Podiatrist
DX: R09.89 Other specified symptoms and signs involving the circulatory and respiratory systems (principal)
CPT/HCPCS: 93922

== ENCOUNTER → 2018-06-02 12:20 | Outpatient (CLI) | payer OTHER, MEDICARE, SELFPAY ==
--- NOTE | 2018-06-02 12:29 | XR_ITS ---
XR knee RT 3V HISTORY: ITS.REASON: RT KNEE PAIN ORDERING PHYSICIAN: Jorge Marcum MD PATIENT AGE: 67 years COMPARISON: None FINDINGS: There are mild osteoarthritic changes involving all 3 compartments with chondrocalcinosis noted at the medial and lateral compartment. No fracture or dislocation. No lytic or blastic change. IMPRESSION: Mild osteoarthritis and chondrocalcinosis
== END ==
PROVIDERS: PCP Family Medicine; Visit Provider Family Medicine
DX: M25.561 Pain in right knee (principal)
CPT/HCPCS: 73562

== ENCOUNTER → 2018-08-26 11:55 | Outpatient (CLI) | payer OTHER, MEDICARE, SELFPAY ==
[2018-08-26 13:33] LABS: Bilirubin,Direct 0.2 mg/dL (0.0-0.2)
[2018-08-29 19:01] LABS: Alanine Aminotransferase 28 U/L (12-78); Albumin Level 3.9 gm/dL (3.4-5.0); Alkaline Phosphatase 97 U/L (46-116); Anion Gap 13.6 mEq/L (5-15); Aspartate Amino Transferase 18 U/L (15-37); Blood Urea Nitrogen 9 mg/dL (7-18); Calcium 8.9 mg/dL (8.5-10.1); Carbon Dioxide 28 mmol/L (21.0-32.0); Chloride 104 mmol/L (98-107); Estimated Glomerular Filt Rate 75 ml/min (>60); GFR (African American) 90 ML/MIN (>60); Glucose 185 mg/dL (74-106); Potassium 5.6 mmoL/L (3.5-5.1); Sodium 140 mmol/L (136-145)
== END ==
PROVIDERS: Visit Provider Podiatrist
DX: B35.1 Tinea unguium (principal); M79.674 Pain in right toe(s); M79.675 Pain in left toe(s)
CPT/HCPCS: 36415; 80048; 82040; 82248; 84075; 84155; 84450; 84460

== ENCOUNTER → 2018-08-30 12:10 | Outpatient (CLI) | payer OTHER, MEDICARE, SELFPAY ==
[2018-08-30 12:56] LABS: Alanine Aminotransferase 32 U/L (12-78); Albumin Level 3.8 gm/dL (3.4-5.0); Albumin/Globulin Ratio 1.2 (1.1-1.8); Alkaline Phosphatase 97 U/L (46-116); Anion Gap 13.4 mEq/L (5-15); Aspartate Amino Transferase 17 U/L (15-37); Bilirubin,Total 0.7 mg/dL (0.2-1.0); Blood Urea Nitrogen 14 mg/dL (7-18); Calcium 9.2 mg/dL (8.5-10.1); Carbon Dioxide 28 mmol/L (21.0-32.0); Chloride 102 mmol/L (98-107); Creatinine,Serum 1.11 mg/dL (0.70-1.30); Estimated Glomerular Filt Rate 66 ml/min (>60); GFR (African American) 80 ML/MIN (>60); Globulin 3.3 gm/dl (1.3-3.2); Glucose 280 mg/dL (74-106); Potassium 4.4 mmoL/L (3.5-5.1); Sodium 139 mmol/L (136-145); Total Protein,Serum 7.1 gm/dL (6.4-8.2)
== END ==
PROVIDERS: Visit Provider Podiatrist
DX: B35.1 Tinea unguium (principal)
CPT/HCPCS: 36415; 80053

== ENCOUNTER → 2018-08-31 12:47 | Outpatient (CLI) | payer OTHER, MEDICARE, SELFPAY ==
--- NOTE | 2018-08-31 13:04 | XR_ITS ---
XR knee LT 4V HISTORY: Knee pain ITS.REASON: 4 views weightbearing ORDERING PHYSICIAN: Megan Bullock MD PATIENT AGE: 67 years COMPARISON: 02/17/2017 FINDINGS: There are mild tricompartmental osteoarthritic changes. No fracture or dislocation. No lytic or blastic change. Minimal chondrocalcinosis noted in the medial compartment. IMPRESSION: No change mild osteoarthritis and minimal chondrocalcinosis
--- NOTE | 2018-08-31 13:04 | XR_ITS ---
XR knee RT 4V HISTORY: Chronic knee pain ITS.REASON: 4 views weightbearing ORDERING PHYSICIAN: Megan Bullock MD PATIENT AGE: 67 years COMPARISON: 06/02/2018 FINDINGS: There are mild osteoarthritic changes involving all 3 compartments and there is chondrocalcinosis of both medial and lateral meniscus. No fracture or dislocation. No significant change from the previous study. There may be a small suprapatellar effusion. IMPRESSION: Mild osteoarthritis with chondrocalcinosis and small suprapatellar effusion
== END ==
PROVIDERS: PCP Family Medicine; Visit Provider Orthopaedic Surgery
DX: M25.561 Pain in right knee (principal); M25.562 Pain in left knee
CPT/HCPCS: 73564

== ENCOUNTER → 2019-04-24 16:09 | Outpatient (CLI) | payer OTHER, MEDICARE, SELFPAY ==
[2019-04-24 17:54] LABS: Hemoglobin A1C 7.5 % (0.0-7.0)
[2019-04-24 18:46] LABS: Alanine Aminotransferase 25 U/L (12-78); Aspartate Amino Transferase 7 U/L (15-37)
== END ==
PROVIDERS: Visit Provider Podiatrist
DX: E11.9 Type 2 diabetes mellitus without complications (principal); B35.1 Tinea unguium
CPT/HCPCS: 36415; 83036; 84450; 84460

== ENCOUNTER → 2020-02-27 11:27 | Outpatient (CLI) | payer OTHER, MEDICARE, SELFPAY | PROVIDERS: PCP Family Medicine; Visit Provider Family Medicine | DX: R55 Syncope and collapse (principal); R00.1 Bradycardia, unspecified | CPT/HCPCS: 93225; 93226 ==

== ENCOUNTER 2020-05-23 02:22 | Emergency (ER) | payer OTHER, MEDICARE, SELFPAY ==
[2020-05-23 02:24] VITALS: BP 142/82; PULSE 94; RESP 16; TEMP 38; O2SAT 98; BMI 31.4
--- NOTE | 2020-05-23 02:42 | XR_ITS ---
PROCEDURE: XR CHEST 2V CLINICAL HISTORY: fever Fever and chills COMPARISON: CR CXR CHEST(2 VIEWS-NOT PORTABLE) from 04/06/2017 CR CXR2V XR chest 2V from 12/04/[address] ABDOMEN PELVIS W CON from 05/23/2020 FINDINGS: There has been a prior CABG. There is mild cardiomegaly without failure. No lobar consolidation or collapse. There are degenerative changes of the thoracic spine with mild kyphosis IMPRESSION: No change with no acute finding Dictated by: Lefty Singh MD 05/23/2020 05:34 Lefty Singh MD in [place] 05/23/2020 05:34
--- NOTE | 2020-05-23 03:00 | CT_ITS ---
PROCEDURE: CT ABDOMEN PELVIS W CON CLINICAL INDICATION: abd. pain, fever Abdominal pain, fever and chills, epigastric pain COMPARISON: No exams were available for comparison TECHNIQUE: IV Contrast: 75ML Isovue 370 Oral Contrast None Axial images obtained with sagittal and coronal reformats. All CT scans at the facility use one or more dose reduction, viz: automated exposure control, ma/kV adjustment per patient size (including targeted exams where dose is matched to indication, i.e. head), or iterative reconstruction technique. FINDINGS: LOWER THORAX: There is mild cardiomegaly without failure. Coronary artery calcifications are present. ABDOMEN & PELVIS: Cholelithiasis. There is a thickened appearance to the stomach wall. The liver, spleen, adrenal glands, pancreas, and right kidney has an unremarkable appearance. There is a small exophytic cyst projecting off the lateral aspect of the left kidney at 2 cm. No intestinal obstruction or free air. No evidence of appendicitis or diverticulitis. There are bilateral exophytic densities projecting from the posterior aspect and inferior aspect of the urinary bladder consistent with bladder diverticula. There are few colonic diverticula. No acute bony finding. The IMPRESSION: Gastric wall thickening which could be due to nondistention or gastritis Cholelithiasis Dictated by: Lefty Singh MD 05/23/2020 05:39 Lefty Singh MD in [place] 05/23/2020 05:39
[2020-05-23 03:01] LABS: Basophils # 0.1 K/mm3 (0-0.2); Basophils % 0.8 % (0.1-2.0); Eosinophils # 0.2 K/mm3 (0.0-0.4); Eosinophils % 1.6 % (0.1-12.0); Hematocrit 49.8 % (42.0-52.0); Lymphocytes # 1.3 K/mm3 (0.7-4.5); Lymphocytes % 12.2 % (10-50); Mean Corpuscular HGB Conc 34.2 g/dL (31.8-35.4); Mean Corpuscular Hemoglobin 33.7 pg (27.0-31.2); Mean Corpuscular Volume 98.5 fl (80-94); Mean Platelet Volume 7.8 fl (7.4-10.4); Monocytes # 0.9 K/mm3 (0.1-1.0); Monocytes % 8.4 % (1.7-9.3); Neutrophils # 7.9 K/mm3 (1.8-7.8); Platelet Count 215 K/mm3 (142-424); Red Blood Count 5.06 M/mm3 (4.60-6.20); Red Cell Distribution Width 14.1 % (11.5-17.5); White Blood Count 10.2 K/mm3 (4.8-10.8)
[2020-05-23 03:04] LABS: Alanine Aminotransferase 47 U/L (12-78); Albumin Level 4.6 g/dl (3.5-5.0); Albumin/Globulin Ratio 1.4 (1.1-1.8); Alkaline Phosphatase 126 U/L (38-126); Anion Gap 13.4 mEq/L (5-15); Aspartate Amino Transferase 39 U/L (17-59); Bilirubin,Total 1.4 mg/dl (0.2-1.3); Blood Urea Nitrogen 12 mg/dl (9-20); Calcium 9.6 mg/dl (8.4-10.2); Carbon Dioxide 27 mmol/L (22.0-30.0); Chloride 100 mmol/L (98-107); Creatinine Clearance Estimated 100 mL/min (50-200); Estimated Glomerular Filt Rate 66 ml/min (>60); GFR (African American) 80 ML/MIN (>60); Globulin 3.3 g/dL (1.3-3.2); Glucose 187 mg/dl (74-100); Lactic Acid 1.5 mmol/L (0.7-2.1); Potassium 4.4 mmoL/L (3.5-5.1); Sodium 136 mmol/L (136-145); Total Protein,Serum 7.9 g/dl (6.3-8.2)
[2020-05-23 03:06] LABS: Strep Scrn Group A (Rapid) Negative (Negative)
[2020-05-23 03:10] LABS: C-Reactive Protein 16.2 mg/L (0-4)
[2020-05-23 03:41] LABS: Erythrocyte Sedimentation Rate 22 mm/hr (0-20)
--- NOTE | 2020-05-23 03:47 | PC.NURSE ---
pt to RAD
--- NOTE | 2020-05-23 04:09 | PC.NURSE ---
pt back from RAD
[2020-05-23 04:12] VITALS: BP 156/89; PULSE 74; RESP 16; TEMP 37; O2SAT 96
[2020-05-23 04:30] VITALS: BP 121/71; PULSE 76; RESP 16; O2SAT 96
--- NOTE | 2020-05-23 04:46 | HMH.EDFEV ---
ED Disposition Clinical Impression: Febrile illness, acute DM2 (diabetes mellitus, type 2) Qualifiers: Diabetes mellitus assisted insulin use: unspecified assisted insulin use status Diabetes mellitus complication status: with other specified complication Qualified Code(s): E11.69 - Type 2 diabetes mellitus with other specified complication Cholelithiasis Qualifiers: Cholelithiasis location: gallbladder Cholecystitis presence: without cholecystitis Biliary obstruction: without biliary obstruction Qualified Code(s): K80.20 - Calculus of gallbladder without cholecystitis without obstruction Disposition: Home, Self-Care Condition on Discharge: Good Instructions: DI for Fever (Symptom) -- Adult Additional Instructions: call pcp for follow up and culture results and obtain gb u/s Referrals: Jorge Marcum MD [Primary Care Provider] - - Critical Care Critical Care Time: No Attestation: On 05/23/20, the high probability of a clinically significant, sudden or life threatening deterioration of the following system(s) required my full and direct attention, intervention and personal management. The time I documented below is in addition to time spent performing reported procedures but includes the following listed in this critical care notation. Medical Decision Making - Medical Records Medical records reviewed: Yes: I reviewed the patient's medical records. - Chauncey Inquiry Pt receiving controlled substance: No Vital Signs: 05/23/20 02:24 05/23/20 04:12 05/23/20 04:30 Temperature 100.4 F H 98.6 F Temperature Source Oral Oral Pulse Rate [Left Radial] 94 H 74 76 Respiratory Rate 16 16 16 Blood Pressure [Right Arm] 142/82 H 156/89 H 121/71 Blood Pressure Mean [Right Arm] 102 111 87 Blood Pressure Source [Right Arm] Automatic Cuff Automatic Cuff Automatic Cuff Blood Pressure Position [Right Arm] Sitting Sitting Sitting 02 Sat by Pulse Oximetry 98 96 96 Oxygen Delivery Method Room Air Room Air Room Air - Lab Data Lab results reviewed: Yes: I reviewed the patient's lab results. Lab Results 05/23/20 02:35: Influenza Type A Ag Negative, Influenza Type B Ag Negative 05/23/20 02:35: Group A Strep Rapid Negative 05/23/20 02:43: WBC 10.2, RBC 5.06, Hgb 17.0, Hct 49.8, MCV 98.5 H, MCH 33.7 H, MCHC 34.2, RDW 14.1, Plt Count 215, MPV 7.8, Neut % (Auto) 77.0, Lymph % (Auto) 12.2, [place] % (Auto) 8.4, Eos % (Auto) 1.6, Baso % (Auto) 0.8, Neut # (Auto) 7.9 H, Lymph # (Auto) 1.3, [place] # (Auto) 0.9, Eos # (Auto) 0.2, Baso # (Auto) 0.1, ESR 22 H 05/23/20 02:43: Sodium 136, Potassium 4.4, Chloride 100, Carbon Dioxide 27, Anion Gap 13.4, BUN 12, Creatinine 1.10, Estimated Creat Clear 100, Estimated GFR 66, Est GFR ( Amer) 80, Glucose 187 H, Calcium 9.6, Total Bilirubin 1.4 H, AST 39, ALT 47, Alkaline Phosphatase 126, C-Reactive Protein 16.2 H, Total Protein 7.9, Albumin 4.6, Globulin 3.3 H, Albumin/Globulin Ratio 1.4 05/23/20 02:43: Lactate 1.5 05/23/20 02:43: SARS-CoV-2 IgG Ab (Rapid) Negative, SARS-CoV-2 IgM Ab (Rapid) Negative 05/23/20 04:55: Urine Color Yellow, Urine Appearance Clear, Urine pH 5.5, Ur Specific [place] 1.010, Urine Protein Negative, Urine Glucose (UA) 3+, Urine Ketones Negative, Urine Blood Negative, Urine Nitrate Negative, Urine Bilirubin Negative, Urine Urobilinogen 0.2, Ur Leukocyte Esterase Negative, Urine WBC Occasional, Ur Squamous Epith Cells 3-5, Urine Bacteria Trace Result diagrams: 05/23/20 02:43 05/23/20 02:43 Orders (Tests/Meds): ED MEDICATIONS Generic Name Dose Route Start Last Admin Trade Name Freq PRN Reason Stop Dose Admin Sodium Chloride 1,000 mls @ 999 mls/hr 05/23/20 02:45 05/23/20 02:56 Sod Chlor 0.9% 1000ml Bag IV 05/23/20 03:45 999 mls/hr .Q1H1M EVER Administration Discontinued Medications Generic Name Dose Route Start Last Admin Trade Name Freq PRN Reason Stop Dose Admin Ibuprofen 600 mg 05/23/20 02:44 05/23/20 02:56 Ibuprofen 600 Mg Tablet PO
[2020-05-23 05:07] LABS: Coronavirus 19 IgG Antibody Negative (Negative); Coronavirus 19 IgM Antibody Negative (Negative)
[2020-05-23 05:10] LABS: Microscopic, Urine URINE MICROSCOPIC (MICROSCOPIC)
[2020-05-23 05:17] LABS: Appearance,Urine CLEAR (Clear); Bilirubin,Urine Negative (Negative); Blood, Urine Negative (Negative); Color,Urine YELLOW (Yellow); Glucose,Urine (UA) 3+ (Negative); Ketones,Urine Negative (Negative); Leukocyte Esterase,Urine Negative (Negative); Nitrate,Urine Negative (Negative); PH,Urine 5.5 (5.0-8.5); Protein,Urine Negative (Negative); Urobilinogen,Urine 0.2 EU/dl (0.2)
[2020-05-23 05:24] LABS: Bacteria,Urine Trace /lpf; WBC,Urine Occasional #/hpf (0-3)
[2020-05-23 05:37] VITALS: BP 128/81; PULSE 73; RESP 16; TEMP 37; O2SAT 98
[2020-05-24 11:12] LABS: Covid-19 Nasal PCR Sendout Lex NOT DETECTED
== END 2020-05-23 05:39 | disposition home or self-care (01) ==
PROVIDERS: Emergency Provider Emergency Medicine; PCP Family Medicine
DX: Z20.828 Contact with and (suspected) exposure to other viral communicable diseases (principal); K80.20 Calculus of gallbladder without cholecystitis without obstruction; E11.65 Type 2 diabetes mellitus with hyperglycemia; E78.5 Hyperlipidemia, unspecified; I25.2 Old myocardial infarction; I25.10 Atherosclerotic heart disease of native coronary artery without angina pectoris; I10 Essential (primary) hypertension; Z79.899 Other long term (current) drug therapy
CPT/HCPCS: 71046; 74177; 80053; 81001; 83605; 85025; 85651; 86140; 86328; 87040; 87086; 87275; 87276; 87430; 96365; 96375; 99284; Q9967; U0004

== ENCOUNTER → 2020-05-29 07:47 | Outpatient (CLI) | payer OTHER, MEDICARE, SELFPAY ==
--- NOTE | 2020-05-29 07:51 | US_ITS ---
PROCEDURE: US ABDOMEN LIMITED CLINICAL INDICATION: ABD PAIN,CALCULUS OF GB, intermittent fever COMPARISON: No exams were available for comparison FINDINGS: PANCREAS: Unremarkable. No obvious mass or abnormal fluid collection. No ductal dilatation, a portion of the tail of the pancreas is obscured by bowel gas. LIVER: No focal liver lesions demonstrated. Homogeneous echogenicity except for some scattered areas of increased echogenicity consistent with fatty infiltration. No intrahepatic biliary ductal dilatation evident. There is appropriate direction of blood flow within a non dilated portal vein RIGHT KIDNEY: Unremarkable. The right kidney measures 10.6 x 6.4 by 7.7 cm appears sonographically normal.. No hydronephrosis GALLBLADDER: The gallbladder is normal in size and there is a moderate-sized calcified gallstone near the neck of the gallbladder. There are couple of additional smaller calcified gallstones which are mobile as well. The gallbladder wall is borderline in thickness. IMPRESSION: Cholelithiasis, minimal scattered areas of hepatic steatosis Dictated by: Dr. Freedom Sutherland MD 05/29/2020 09:20 Dr. Freedom Sutherland MD in [place] 05/29/2020 09:20
== END ==
PROVIDERS: PCP Family Medicine; Visit Provider Family Medicine
DX: R10.11 Right upper quadrant pain (principal); K80.20 Calculus of gallbladder without cholecystitis without obstruction
CPT/HCPCS: 76705

== ENCOUNTER 2020-11-29 19:18 | Inpatient (IN) | payer BC, MEDICARE, SELFPAY ==
[2020-11-29 19:25] VITALS: BP 117/66; PULSE 110; RESP 19; TEMP 37.4; O2SAT 98; BMI 31.4
--- NOTE | 2020-11-29 19:40 | PC.NURSE ---
PATIENT HAD SYNCOPAL EPISODE AT THIS TIME. PROVIDER AT BEDSIDE
--- NOTE | 2020-11-29 19:45 | PC.NURSE ---
PATIENT SENT TO ER PER Kamille CAZARES APRN D/T ABDOMINAL PAIN AND SYNCOPAL EPISODE FOR FURTHER EVALUATION. REPORT GIVEN TO Sara ROWE RN
[2020-11-29 20:07] VITALS: BP 114/62; PULSE 103; RESP 20; TEMP 37.5; O2SAT 94; BMI 31.4
--- NOTE | 2020-11-29 20:26 | CT_ITS ---
PROCEDURE INFORMATION: Exam: CT Head Without Contrast Exam date and time: 11/29/2020 8:26 PM Age: 70 years old Clinical indication: Syncope and collapse TECHNIQUE: Imaging protocol: Computed tomography of the head without contrast. Radiation optimization: All CT scans at this facility use at least one of these dose optimization techniques: automated exposure control; mA and/or kV adjustment per patient size (includes targeted exams where dose is matched to clinical indication); or iterative reconstruction. COMPARISON: US CA carotid duplex BI 12/17/2017 8:45 AM FINDINGS: Brain: There is age-appropriate cerebral atrophy. Mild changes of chronic small vessel ischemia within the cerebral white matter regions bilaterally. No acute infarct or hemorrhage. Cerebral ventricles: No ventriculomegaly. Paranasal sinuses: Visualized sinuses are unremarkable. No fluid levels. Mastoid air cells: Visualized mastoid air cells are well aerated. Bones/joints: Unremarkable. No acute fracture. Soft tissues: Unremarkable. IMPRESSION: No acute intracranial abnormality.
--- NOTE | 2020-11-29 20:26 | CT_ITS ---
PROCEDURE INFORMATION: Exam: CT Abdomen And Pelvis With Contrast Exam date and time: 11/29/2020 8:26 PM Age: 70 years old Clinical indication: Abdominal pain; Generalized; Patient HX: Abd pain with nausea; Additional info: Upper abd pain with nasuea TECHNIQUE: Imaging protocol: Computed tomography of the abdomen and pelvis with contrast. Radiation optimization: All CT scans at this facility use at least one of these dose optimization techniques: automated exposure control; mA and/or kV adjustment per patient size (includes targeted exams where dose is matched to clinical indication); or iterative reconstruction. Contrast material: ISOVUE; Contrast volume: 75 ml; Contrast route: IV; COMPARISON: CT ABDOMEN PELVIS W CON 05/23/2020 3:50 AM FINDINGS: Liver: Normal. No mass. Gallbladder and bile ducts: The gallbladder contains layering stones. Pancreas: Normal. No ductal dilation. Spleen: Normal. No splenomegaly. Adrenal glands: Normal. No mass. Kidneys and ureters: 19 mm diameter simple left renal cyst. 9 mm hypodense mass in the right kidney may represent a cyst but is too small to adequately characterize. Moderate size bilateral ureteroceles. Stomach and bowel: Unremarkable. No obstruction. No mucosal thickening. Appendix: No evidence of appendicitis. Intraperitoneal space: Unremarkable. No free air. No significant fluid collection. Vasculature: Unremarkable. No abdominal aortic aneurysm. Lymph nodes: Unremarkable. No enlarged lymph nodes. Urinary bladder: Unremarkable as visualized. Reproductive: Unremarkable as visualized. Bones/joints: Mid sternotomy wires and postoperative changes of CABG noted. Soft tissues: Small fat containing left inguinal hernia. Small fat containing umbilical hernia. IMPRESSION: 1. Cholelithiasis. 2. Small fat containing umbilical and left inguinal hernias. 3. Bilateral ureteroceles. COMMENTS: Consistent with the [place] [employer]'s Incidental Findings Committee white paper (J Am Elida Radiol 2018): Any incidental renal lesion less than 1 cm or classified as too small to characterize, or any incidental cystic renal lesion characterized as simple-appearing, is likely benign. No follow-up imaging is recommended for these lesions per consensus recommendations based on imaging criteria.
[2020-11-29 20:32] LABS: Basophils % 0.6 % (0.1-2.0); Eosinophils # 0.1 K/mm3 (0.0-0.4); Eosinophils % 1.4 % (0.1-12.0); Hematocrit 43.2 % (42.0-52.0); Hemoglobin 14.9 g/dL (14.1-18.0); Lymphocytes # 0.5 K/mm3 (0.7-4.5); Mean Corpuscular HGB Conc 34.5 g/dL (31.8-35.4); Mean Corpuscular Hemoglobin 32.9 pg (27.0-31.2); Mean Corpuscular Volume 95.1 fl (80-94); Monocytes # 0.1 K/mm3 (0.1-1.0); Monocytes % 1.5 % (1.7-9.3); Neutrophils # 2.6 K/mm3 (1.8-7.8); Neutrophils % 81.5 % (37.0-80.0); Platelet Count 185 K/mm3 (142-424); Red Blood Count 4.54 M/mm3 (4.60-6.20); White Blood Count 3.1 K/mm3 (4.8-10.8)
[2020-11-29 20:38] LABS: Alanine Aminotransferase 328 U/L (12-78); Albumin Level 4.2 g/dl (3.5-5.0); Albumin/Globulin Ratio 1.4 (1.1-1.8); Alkaline Phosphatase 141 U/L (38-126); Amylase 101 U/L (30-110); Anion Gap 11.7 mEq/L (5-15); Aspartate Amino Transferase 706 U/L (17-59); Bilirubin,Total 1.9 mg/dl (0.2-1.3); Blood Urea Nitrogen 13 mg/dl (9-20); Calcium 8.9 mg/dl (8.4-10.2); Carbon Dioxide 27 mmol/L (22.0-30.0); Chloride 103 mmol/L (98-107); Creatinine Clearance Estimated 108 mL/min (50-200); Estimated Glomerular Filt Rate 74 ml/min (>60); GFR (African American) 89 ML/MIN (>60); Globulin 2.9 g/dL (1.3-3.2); Glucose 212 mg/dl (74-100); Lipase 472 U/L (23-300); Potassium 3.7 mmoL/L (3.5-5.1); Sodium 138 mmol/L (136-145); Total Protein,Serum 7.1 g/dl (6.3-8.2)
[2020-11-29 20:44] LABS: C-Reactive Protein 1.7 mg/L (0-4)
[2020-11-29 20:57] LABS: Procalcitonin 0.236 ng/mL (0.0-2.0)
--- NOTE | 2020-11-29 20:58 | PC.NURSE ---
pt to CT
[2020-11-29 20:59] LABS: Lactic Acid 2.3 mmol/L (0.7-2.1)
[2020-11-29 20:59] LABS: Microscopic, Urine URINE MICROSCOPIC (MICROSCOPIC)
[2020-11-29 21:00] LABS: Erythrocyte Sedimentation Rate 15 mm/hr (0-20)
[2020-11-29 21:01] LABS: Appearance,Urine CLEAR (Clear); Bilirubin,Urine Negative (Negative); Blood, Urine Negative (Negative); Color,Urine YELLOW (Yellow); Glucose,Urine (UA) 3+ (Negative); Ketones,Urine Negative (Negative); Leukocyte Esterase,Urine Negative (Negative); Nitrate,Urine Negative (Negative); Protein,Urine Negative (Negative)
[2020-11-29 21:07] LABS: Coronavirus 19, PCR Not Detected (NotDetected); Influenza A, PCR Not Detected (NotDetected); Influenza B, PCR Not Detected (NotDetected)
[2020-11-29 21:08] LABS: Squamous Epithelial Cell,Urine Occasional #/hpf (0-5); WBC,Urine Occasional #/hpf (0-3)
[2020-11-29 21:30] VITALS: BP 102/48; PULSE 93; O2SAT 96
[2020-11-29 22:49] VITALS: BP 102/49; PULSE 66; O2SAT 95
--- NOTE | 2020-11-29 22:52 | HMH.EDNVD ---
ED Disposition Clinical Impression: Severe sepsis with acute organ dysfunction, Obesity (BMI 30.0-34.9) Cholelithiasis Qualifiers: Cholelithiasis location: gallbladder Cholecystitis presence: without cholecystitis Biliary obstruction: without biliary obstruction Qualified Code(s): K80.20 - Calculus of gallbladder without cholecystitis without obstruction Disposition: Admitted as Observation Condition on Discharge: Fair Referrals: Jorge Marcum MD [Primary Care Provider] - - Critical Care Critical Care Time: No Attestation: On 11/29/20, the high probability of a clinically significant, sudden or life threatening deterioration of the following system(s) required my full and direct attention, intervention and personal management. The time I documented below is in addition to time spent performing reported procedures but includes the following listed in this critical care notation. Medical Decision Making - Medical Records Medical records reviewed: Yes: I reviewed the patient's medical records. - Chauncey Inquiry Pt receiving controlled substance: No Vital Signs: 11/29/20 19:25 11/29/20 20:07 Temperature 99.4 F 99.5 F Temperature Source Oral Oral Pulse Rate [Left Brachial] 110 H 103 H Respiratory Rate 19 20 Blood Pressure [Left Arm] 117/66 114/62 Blood Pressure Mean [Left Arm] 83 79 Blood Pressure Source [Left Arm] Automatic Cuff Automatic Cuff Blood Pressure Position [Left Arm] Sitting 02 Sat by Pulse Oximetry 98 94 L Oxygen Delivery Method Room Air Room Air - Lab Data Lab results reviewed: Yes: I reviewed the patient's lab results. Lab Results 11/29/20 20:00: WBC 3.1 L, RBC 4.54 L, Hgb 14.9, Hct 43.2, MCV 95.1 H, MCH 32.9 H, MCHC 34.5, RDW 14.0, Plt Count 185, MPV 8.0, Neut % (Auto) 81.5 H, Lymph % (Auto) 15.0, [place] % (Auto) 1.5 L, Eos % (Auto) 1.4, Baso % (Auto) 0.6, Neut # (Auto) 2.6, Lymph # (Auto) 0.5 L, [place] # (Auto) 0.1, Eos # (Auto) 0.1, Baso # (Auto) 0.0, ESR 15 11/29/20 20:00: Sodium 138, Potassium 3.7, Chloride 103, Carbon Dioxide 27, Anion Gap 11.7, BUN 13, Creatinine 1.00, Estimated Creat Clear 108, Estimated GFR 74, Est GFR ( Amer) 89, Glucose 212 H, Calcium 8.9, Total Bilirubin 1.9 H, AST 706 H*, ALT 328 H*, Alkaline Phosphatase 141 H, C-Reactive Protein 1.7, Total Protein 7.1, Albumin 4.2, Globulin 2.9, Albumin/Globulin Ratio 1.4, Amylase 101, Lipase 472 H, Procalcitonin 0.236 11/29/20 20:00: Lactate 2.3 H 11/29/20 20:53: Urine Color Yellow, Urine Appearance Clear, Urine pH 6.0, Ur Specific [place] 1.010, Urine Protein Negative, Urine Glucose (UA) 3+, Urine Ketones Negative, Urine Blood Negative, Urine Nitrate Negative, Urine Bilirubin Negative, Urine Urobilinogen 1.0, Ur Leukocyte Esterase Negative, Urine RBC 3-5, Urine WBC Occasional, Ur Squamous Epith Cells Occasional, Urine Bacteria None 11/29/20 20:53: SARS-CoV-2 (PCR) Not detected, Influenza A Untype (PCR) Not detected, Influenza Type B (PCR) Not detected Result diagrams: 11/29/20 20:00 11/29/20 20:00 Orders (Tests/Meds): ED MEDICATIONS Generic Name Dose Route Start Last Admin Trade Name Freq PRN Reason Stop Dose Admin Sodium Chloride 1,000 mls @ 999 mls/hr 11/29/20 20:30 11/29/20 20:33 Sod Chlor 0.9% 1000ml Bag IV 11/29/20 21:30 999 mls/hr .Q1H1M EVER Administration Sodium Chloride 1,000 mls @ 999 mls/hr 11/29/20 21:30 11/29/20 21:31 Sod Chlor 0.9% 1000ml Bag IV 11/29/20 22:30 999 mls/hr .Q1H1M EVER Administration Sodium Chloride 8 ml 11/29/20 20:30 Sodium Chloride 0.9% 10ml Vial IV 12/29/20 20:29 NEEDED PRN dilute pepcid Discontinued Medications Generic Name Dose Route Start Last Admin Trade Name Freq PRN Reason Stop Dose Admin Famotidine 20 mg 11/29/20 20:30 11/29/20 20:34 Famotidine 20mg/2ml Vial IV 11/29/20 20:31 20 mg ONCE ONE Administration Iopamidol 75 ml 11/29/20 21:24 11/29/20 21:25 Iopamidol-370 (76%);100ml Bottle IV 11/29/20 21:25 75 ml
--- NOTE | 2020-11-29 23:05 | PC.NURSE ---
paged dr mcgrath @ this time
[2020-11-29 23:30] VITALS: PULSE 53; O2SAT 95
[2020-11-29 23:53] LABS: Reflex Lactic Add Lactic Reflex
[2020-11-30] VITALS (7 sets, daily range): BP systolic 95–125; BP diastolic 50–73; PULSE 58–92; RESP 16–18; TEMP 36.7–37.1; O2SAT 93–96; BMI 31.8
[2020-11-30 00:27] LABS: Lactic Acid Follow Up (RFLX 1) 2.1 mmol/L (0.7-2.1)
--- NOTE | 2020-11-30 00:35 | PC.NURSE ---
Report given to Marcelle Santana
--- NOTE | 2020-11-30 00:57 | PC.NURSE ---
PT ARRIVED TO FLOOR VIA W/C [facility] ED W/STAFF AT 0056
[2020-11-30 02:04] LABS: Reflex Lactic (2 hrs) Add Lactic Reflex
[2020-11-30 02:28] LABS: Lactic Acid Follow up (RFLX 2) 1.7 mmol/L (0.7-2.1)
--- NOTE | 2020-11-30 02:52 | PC.NURSE ---
Could not reconcile Medications as patient did not have his wallet with the list. Pt does not know what he takes without the list. Will contact patient's in the morning with medication to bring in.
[2020-11-30 06:54] LABS: Basophils % 0.2 % (0.1-2.0); Eosinophils % 0.1 % (0.1-12.0); Hematocrit 38.3 % (42.0-52.0); Lymphocytes # 0.3 K/mm3 (0.7-4.5); Lymphocytes % 2.4 % (10-50); Mean Corpuscular HGB Conc 34.2 g/dL (31.8-35.4); Mean Corpuscular Volume 96.3 fl (80-94); Mean Platelet Volume 8.1 fl (7.4-10.4); Monocytes # 0.5 K/mm3 (0.1-1.0); Monocytes % 3.9 % (1.7-9.3); Neutrophils # 12.6 K/mm3 (1.8-7.8); Neutrophils % 93.5 % (37.0-80.0); Platelet Count 149 K/mm3 (142-424); Red Blood Count 3.98 M/mm3 (4.60-6.20); White Blood Count 13.5 K/mm3 (4.8-10.8)
[2020-11-30 06:59] LABS: Lipase 95 U/L (23-300)
[2020-11-30 06:59] LABS: POC Glucose,Bedside 165 (70-110)
[2020-11-30 07:07] LABS: MANUAL DIFFERENTIAL MANUAL DIFFERENTIAL (MANUAL DIFF)
[2020-11-30 07:08] LABS: Hemoglobin 13.1 g/dL (14.1-18.0)
[2020-11-30 07:14] LABS: Chloride 109 mmol/L (98-107); Potassium 4.1 mmoL/L (3.5-5.1); Sodium 138 mmol/L (136-145)
[2020-11-30 07:17] LABS: Alanine Aminotransferase 713 U/L (12-78); Albumin Level 3.2 g/dl (3.5-5.0); Albumin/Globulin Ratio 1.3 (1.1-1.8); Alkaline Phosphatase 120 U/L (38-126); Anion Gap 11.1 mEq/L (5-15); Bilirubin,Total 3.8 mg/dl (0.2-1.3); Blood Urea Nitrogen 16 mg/dl (9-20); Carbon Dioxide 22 mmol/L (22.0-30.0); Creatinine Clearance Estimated 100 mL/min (50-200); Estimated Glomerular Filt Rate 66 ml/min (>60); GFR (African American) 80 ML/MIN (>60); Globulin 2.5 g/dL (1.3-3.2); Total Protein,Serum 5.7 g/dl (6.3-8.2)
[2020-11-30 07:18] LABS: Calcium 8.2 mg/dl (8.4-10.2); Glucose 162 mg/dl (74-100)
[2020-11-30 07:24] LABS: Aspartate Amino Transferase 918 U/L (17-59)
[2020-11-30 08:34] LABS: Lymphocytes % 6 % (10-50); Monocytes % 4 % (2-9); Neutrophils % 90 % (42-76); Platelet Estimate Normal; RBC Morphology Normal; Total Cells Counted 100
--- NOTE | 2020-11-30 08:47 | PC.NURSE ---
Paged Dr Kumar for consulted on this pt. Waiting for call back.
--- NOTE | 2020-11-30 09:35 | HMH.HP ---
*Admission Date: 11/30/20 *Chief complaint: Abd pain *History of present illness: Mr. Medrano is 70 year old male with a history of DM type 2 and CAD, 5 vessel CABG in 2011, who presented to [facility] ER last night complaining of severe upper abdominal pain associated with fever and chills. He felt nauseated briefly in the ER, denies diarrhea and constipation. He states that this episode is very similar to previous episodes he has had with his gallbladder. In May of 2020 he was elevated for upper abdominal pain and found to have gallstones. He was reluctant to have surgery, at that time, due to the Covid 19 pandemic. He has since had several other episodes and states that he has just completed his pre op evaluation with Dr. Venegas at [facility] in [place]. The work up included an Echo done in September, and a left heart cath done approximately 2 weeks ago, which the patient states was normal, but results are not available. [facility] History Medical History: Reports:: Coronary Artery Disease, Diabetes Mellitus Type 2, Hyperlipidemia, Hypertension, Myocardial Infarction Denies:: Cancer, Diabetes Mellitus Type 1, Internal Pacemaker, Lung Disease, MRSA, Seizures *Have you ever received a pneumonia vaccine?: Yes *Have you received a flu vaccine this season?: No Other Medical History: Reports: Other (Vaso Vagal reaction) Laterality Cases: Left: Arthroscopy Knee Other Surgeries: Yes: CABG (Bypass x5.), Cardiac Catheterization, Colonoscopy, Hernia Repair, Other. No: Pacemaker. Comment Only: Coronary Stent (5) Amputation: No Fractures: No - *Social History Last grade of school completed: Some college Smoking Status: Never smoker Alcohol Intake: never Substance Use Type: denies use *Occupational Status:: retired Housing: house Household Members: spouse *Travel in the last 8 weeks: None Family Hx:: Hypertension Review of Systems - Constitutional Reports chills - Eyes Denies change in vision - ENT Denies change in voice - *Cardiovascular Denies chest pain - *Respiratory Denies cough - *Genitourinary Denies difficulty urinating - *Musculoskeletal Denies joint swelling - Integumentary/Breasts Denies rash - *Neurologic Reports headache(s), Denies localized weakness - Psychiatric Denies anxiety - Endocrine Denies flushing Meds Home Medications Medication Instructions Recorded Confirmed Type Aspirin/Calcium Carbonate/Mag 0.5 tab PO DAILY 10/29/17 11/29/20 History [Aspirin Buffered 325 mg Tab] Atorvastatin Calcium [Lipitor 80mg 80 mg PO HS 10/29/17 11/29/20 History Tab] Multivitamin [Multivitamins] 1 each PO DAILY 10/29/17 11/29/20 History Sitagliptin Phosphate [Januvia 100 mg PO DAILY 10/29/17 11/29/20 History 100mg tablet] lisinopriL [Zestril 5mg 5 mg PO DAILY 10/29/17 11/29/20 History Tablet] bisoproloL fumarate [Zebeta 5mg 2.5 mg PO HS #0 12/04/17 11/29/20 Rx tablet] meloxicam 7.5 mg tablet 7.5 mg PO DAILY 30 Days #30 tab 09/05/18 11/29/20 History rivaroxaban 2.5 mg tablet 2.5 mg PO BID 30 Days #60 tab 09/05/18 11/29/20 History empagliflozin 12.5 mg-metformin ER 2 tab PO DAILY 07/31/19 11/29/20 History 1,000 mg tablet,extended rel 24 hr cephALEXin [cephALEXin 500mg 500 mg PO BID 11/29/20 11/29/20 History capsule*] Allergies Allergy/AdvReac Type Severity Reaction Status Date / Time No Known Allergies Allergy Verified 11/30/20 01:13 Exam Vital signs and Labs for Last 24 Hours: Temp Pulse Resp BP Pulse Ox 98.3 F 76 18 102/55 L 95 11/30/20 07:50 11/30/20 07:50 11/30/20 07:50 11/30/20 07:50 11/30/20 08:00 Laboratory Results - last 24 hr 11/29/20 20:00: WBC 3.1 L, RBC 4.54 L, Hgb 14.9, Hct 43.2, MCV 95.1 H, MCH 32.9 H, MCHC 34.5, RDW 14.0, Plt Count 185, MPV 8.0, Neut % (Auto) 81.5 H, Lymph % (Auto) 15.0, [place] % (Auto) 1.5 L, Eos % (Auto) 1.4, Baso % (Auto) 0.6, Neut # (Auto) 2.6, Lymph # (Auto) 0.5 L, [place] # (Auto) 0.1, Eos # (Auto) 0.1,
--- NOTE | 2020-11-30 09:57 | US_ITS ---
PROCEDURE INFORMATION: Exam: US Abdomen, Limited; Right Upper Quadrant Exam date and time: 11/30/2020 9:57 AM Age: 70 years old Clinical indication: Abdominal pain; Epigastric; Patient HX: Ruq pain; Additional info: Ruq pain, cholelithiasis TECHNIQUE: Imaging protocol: US abdomen. Real time ultrasound with image documentation. Limited exam focused on the right upper quadrant. COMPARISON: US ABDOMEN LIMITED 05/29/2020 8:14 AM FINDINGS: Liver: Hepatomegaly 18 cm. Gallbladder: Gallstones in the gallbladder.. Gallbladder wall measures 3.4 mm. Findings may reflect acute cholecystitis . Common bile duct: Common bile duct 3.3 mm Pancreas: Visualized pancreas is unremarkable. Right kidney: Right kidney 11.2 cm. No hydronephrosis Portal venous: Hepatopetal flow in the portal vein IMPRESSION: Gallstones in the gallbladder.. Gallbladder wall measures 3.4 mm. Findings may reflect acute cholecystitis .
--- NOTE | 2020-11-30 10:01 | PC.NURSE ---
Late entry 9:[address] Kumar again for consult on this pt.
--- NOTE | 2020-11-30 10:03 | PC.NURSE ---
Had Dr Kumar paged again for consult on this pt.
--- NOTE | 2020-11-30 10:04 | PC.NURSE ---
Dr. Kumar returned call at this time.
--- NOTE | 2020-11-30 10:20 | HMH.PHAVTE ---
[facility] Pharmacy VTE Monitoring - Patient Demographics Admission date: 11/30/20 Report Date: 11/30/20 Time: 10:20 Allergies/Adverse Reactions: Patient Allergies No Known Allergies Allergy (Verified 11/30/20 01:13) Height: 1.88 m Weight: 112.633 kg Patient Problems: Current Active Problems Cholelithiasis (Acute) Severe sepsis with acute organ dysfunction (Acute) Obesity (BMI 30.0-34.9) (Chronic) - VTE Risk Labs: VTE Related Lab Results Hgb 13.1 g/dL (14.1-18.0) L D 11/30/20 06:24 Hct 38.3 % (42.0-52.0) L 11/30/20 06:24 Plt Count 149 K/mm3 (142-424) 11/30/20 06:24 BUN 16 mg/dl (9-20) 11/30/20 06:24 Creatinine 1.10 mg/dl (0.66-1.25) 11/30/20 06:24 Estimated Creat Clear 100 mL/min (50-200) 11/30/20 06:24 VTE Score: 2 VTE Risk Level: Very Low Risk - Prophylaxis VTE Prophylaxis Ordered?: Yes Types of VTE Prophylaxis: TEDS Knee High (UMER HOSE ORDERED) Location of Applied Device: Refused
--- NOTE | 2020-11-30 11:18 | HMH.GSCON ---
*Admission Date: 11/30/20 *Reason for consult:: Gallstones. *History of present illness: Mr. Medrano is a 70-year-old male admitted to [facility] with right upper quadrant abdominal pain and secondary onset of nausea. Admitted on November 30, 2020. Today is hospital day #1. Events are similar to prior episodes and patient has been previously evaluated for gallbladder disease in May 2020. At that time, surgical discussion was held based on concerns regarding COVID exposure during hospitalization. Patient admitted with resulting CT demonstrating cholelithiasis. Markedly elevated LFTs. Normal total bilirubin. Mildly elevated WBC; 13,000+. Patient reports some improvement. Remains compliant on Xarelto with history of coronary artery disease; CABG in 2011. Patient has had recent cardiology evaluation in the past 2 to 3 weeks. Review of Systems - Constitutional Reports fatigue - *Gastrointestinal Reports abdominal pain, Reports nausea - *Neurologic Reports headache(s), Denies localized weakness [facility] History Medical History: Reports:: Coronary Artery Disease, Diabetes Mellitus Type 2, Hyperlipidemia, Hypertension, Myocardial Infarction Denies:: Cancer, Diabetes Mellitus Type 1, Internal Pacemaker, Lung Disease, MRSA, Seizures *Have you ever received a pneumonia vaccine?: Yes *Have you received a flu vaccine this season?: No Other Medical History: Reports: Other (Vaso Vagal reaction) Laterality Cases: Left: Arthroscopy Knee Other Surgeries: Yes: CABG (Bypass x5.), Cardiac Catheterization, Colonoscopy, Hernia Repair, Other. No: Pacemaker. Comment Only: Coronary Stent (5) Amputation: No Fractures: No - *Social History Last grade of school completed: Some college Smoking Status: Never smoker Alcohol Intake: never Substance Use Type: denies use *Occupational Status:: retired Housing: house Household Members: spouse *Travel in the last 8 weeks: None Family Hx:: Hypertension Meds Home Medications Medication Instructions Recorded Confirmed Type Atorvastatin Calcium [Lipitor 80mg 80 mg PO HS 10/29/17 11/29/20 History Tab] Sitagliptin Phosphate [Januvia 100 mg PO DAILY 10/29/17 11/29/20 History 100mg tablet] lisinopriL [Zestril 5mg 5 mg PO DAILY 10/29/17 11/29/20 History Tablet] bisoproloL fumarate [Zebeta 5mg 2.5 mg PO HS #0 12/04/17 11/29/20 Rx tablet] meloxicam 7.5 mg tablet 7.5 mg PO DAILY 30 Days #30 tab 09/05/18 11/29/20 History rivaroxaban 2.5 mg tablet 2.5 mg PO BID 30 Days #60 tab 09/05/18 11/29/20 History empagliflozin 12.5 mg-metformin ER 2 tab PO DAILY 07/31/19 11/29/20 History 1,000 mg tablet,extended rel 24 hr cephALEXin [cephALEXin 500mg 500 mg PO BID 11/29/20 11/29/20 History capsule*] Aspirin [Aspirin 81mg EC Tab] 81 mg PO DAILY 11/30/20 11/30/20 History Multivitamin with Minerals [One 1 each PO DAILY 11/30/20 11/30/20 History Daily Complete] Allergies Allergy/AdvReac Type Severity Reaction Status Date / Time No Known Allergies Allergy Verified 11/30/20 01:13 Exam Vital signs and Labs for Last 24 Hours: Temp Pulse Resp BP Pulse Ox 98.3 F 76 18 102/55 L 95 11/30/20 07:50 11/30/20 07:50 11/30/20 07:50 11/30/20 07:50 11/30/20 08:00 Laboratory Results - last 24 hr 11/29/20 20:00: WBC 3.1 L, RBC 4.54 L, Hgb 14.9, Hct 43.2, MCV 95.1 H, MCH 32.9 H, MCHC 34.5, RDW 14.0, Plt Count 185, MPV 8.0, Neut % (Auto) 81.5 H, Lymph % (Auto) 15.0, [place] % (Auto) 1.5 L, Eos % (Auto) 1.4, Baso % (Auto) 0.6, Neut # (Auto) 2.6, Lymph # (Auto) 0.5 L, [place] # (Auto) 0.1, Eos # (Auto) 0.1, Baso # (Auto) 0.0, ESR 15 11/29/20 20:00: Sodium 138, Potassium 3.7, Chloride 103, Carbon Dioxide 27, Anion Gap 11.7, BUN 13, Creatinine 1.00, Estimated Creat Clear 108, Estimated GFR 74, Est GFR ( Amer) 89, Glucose 212 H, Calcium 8.9, Total Bilirubin 1.9 H, AST 706 H*, ALT 328 H*, Alkaline Phosphatase 141 H, C-Reactive Protein 1.7, Total Protein 7.1, Albumin 4.2
[2020-11-30 12:00] LABS: POC Glucose,Bedside 124 (70-110)
--- NOTE | 2020-11-30 12:10 | PC.NURSE ---
Notified MD Trujillo of positive blood cultures. NNO.
[2020-11-30 16:40] LABS: POC Glucose,Bedside 151 (70-110)
--- NOTE | 2020-11-30 17:22 | PC.NURSE ---
Pt has rested well this shift. Pt has tolerated clear liquid diets w/ no complaints. Pt has requested PRN tylenol x2 this shift for a LIU. No other acute changes or complaints at this time. Will continue to monitor.
[2020-11-30 21:08] LABS: POC Glucose,Bedside 152 (70-110)
--- NOTE | 2020-12-01 03:31 | PC.NURSE ---
A&OX4. TOLERATING RA WELL. PT HAS ONLY HAD C/O HEADACHE THIS SHIFT. TX WITH TYLENOL PER AUG AND PROVIDED COLD WASH CLOTH. PT RESTING ON REASSESSMENT. HAS HAD NO OTHER C/O THUS FAR, VSS WILL CONTINUE TO MONITOR.
[2020-12-01 04:00] VITALS: BP 135/68; PULSE 78; RESP 18; TEMP 37.4; O2SAT 94
[2020-12-01 05:03] LABS: POC Glucose,Bedside 107 (70-110)
[2020-12-01 05:07] VITALS: BMI 32.2
[2020-12-01 07:19] LABS: Basophils % 0.4 % (0.1-2.0); Eosinophils # 0.1 K/mm3 (0.0-0.4); Eosinophils % 1.4 % (0.1-12.0); Hematocrit 37.6 % (42.0-52.0); Hemoglobin 12.8 g/dL (14.1-18.0); Lymphocytes # 0.7 K/mm3 (0.7-4.5); Lymphocytes % 7.3 % (10-50); Mean Corpuscular HGB Conc 34.1 g/dL (31.8-35.4); Mean Corpuscular Hemoglobin 33.2 pg (27.0-31.2); Mean Corpuscular Volume 97.1 fl (80-94); Monocytes # 0.4 K/mm3 (0.1-1.0); Monocytes % 4.8 % (1.7-9.3); Neutrophils # 7.9 K/mm3 (1.8-7.8); Platelet Count 131 K/mm3 (142-424); Red Blood Count 3.87 M/mm3 (4.60-6.20); Red Cell Distribution Width 14.1 % (11.5-17.5); White Blood Count 9.2 K/mm3 (4.8-10.8)
[2020-12-01 07:33] LABS: MANUAL DIFFERENTIAL MANUAL DIFFERENTIAL (MANUAL DIFF)
[2020-12-01 07:39] LABS: Chloride 108 mmol/L (98-107); Potassium 3.7 mmoL/L (3.5-5.1); Sodium 138 mmol/L (136-145)
[2020-12-01 07:41] LABS: Alanine Aminotransferase 439 U/L (12-78); Alkaline Phosphatase 123 U/L (38-126); Aspartate Amino Transferase 250 U/L (17-59); Bilirubin,Total 5.4 mg/dl (0.2-1.3); Blood Urea Nitrogen 10 mg/dl (9-20); Creatinine Clearance Estimated 111 mL/min (50-200); Estimated Glomerular Filt Rate 83 ml/min (>60); GFR (African American) 101 ML/MIN (>60)
[2020-12-01 07:42] LABS: Albumin/Globulin Ratio 1.2 (1.1-1.8); Anion Gap 11.7 mEq/L (5-15); Calcium 8.1 mg/dl (8.4-10.2); Carbon Dioxide 22 mmol/L (22.0-30.0); Globulin 2.6 g/dL (1.3-3.2); Glucose 111 mg/dl (74-100); Total Protein,Serum 5.6 g/dl (6.3-8.2)
[2020-12-01 07:50] LABS: Lymphocytes % 7 % (10-50); Monocytes % 8 % (2-9); Neutrophils % 85 % (42-76); Platelet Estimate Normal; RBC Morphology Normal; Total Cells Counted 100
[2020-12-01 08:00] VITALS: BP 120/65; PULSE 57; RESP 16; TEMP 36.8; O2SAT 94
--- NOTE | 2020-12-01 08:20 | HMH.ACPN2 ---
Internal Medicine - PN: Subj *Date: 12/01/20 *Time: 08:20 Interval history: Patient with no new complaints today. He feels a little better, still has a headache. Tolerating clear liquids. Exam Vital signs and Labs for Last 24 Hours: Temp Pulse Resp BP Pulse Ox 99.3 F 78 18 135/68 94 L 12/01/20 04:00 12/01/20 04:00 12/01/20 04:00 12/01/20 04:00 12/01/20 04:00 Laboratory Results - last 24 hr 11/30/20 06:24: Total Counted 100, Neutrophils % (Manual) 90 H, Lymphocytes % (Manual) 6 L, Monocytes % (Manual) 4, Platelet Estimate Normal, RBC Morphology Normal 11/30/20 11:52: POC Glucose 124 H 11/30/20 16:05: POC Glucose 151 H 11/30/20 20:38: POC Glucose 152 H 12/01/20 04:56: POC Glucose 107 12/01/20 06:52: WBC 9.2 D, RBC 3.87 L, Hgb 12.8 L, Hct 37.6 L, MCV 97.1 H, MCH 33.2 H, MCHC 34.1, RDW 14.1, Plt Count 131 L, MPV 8.0, Neut % (Auto) 86.0 H, Lymph % (Auto) 7.3 L, [place] % (Auto) 4.8, Eos % (Auto) 1.4, Baso % (Auto) 0.4, Neut # (Auto) 7.9 H, Lymph # (Auto) 0.7, [place] # (Auto) 0.4, Eos # (Auto) 0.1, Baso # (Auto) 0.0, Total Counted 100, Neutrophils % (Manual) 85 H, Lymphocytes % (Manual) 7 L, Monocytes % (Manual) 8, Platelet Estimate Normal, RBC Morphology Normal 12/01/20 06:52: Sodium 138, Potassium 3.7, Chloride 108 H, Carbon Dioxide 22, Anion Gap 11.7, BUN 10 D, Creatinine 0.90, Estimated Creat Clear 111, Estimated GFR 83, Est GFR ( Amer) 101 D, Glucose 111 H, Calcium 8.1 L, Total Bilirubin 5.4 H, AST 250 H D, ALT 439 H*, Alkaline Phosphatase 123, Total Protein 5.6 L, Albumin 3.0 L, Globulin 2.6, Albumin/Globulin Ratio 1.2 Vital Signs - 24 hr 11/30/20 15:14 11/30/20 20:00 12/01/20 04:00 Temperature 98.8 F 98.1 F 99.3 F Pulse Rate [Left Brachial] 69 58 L 78 Respiratory Rate 18 18 18 Blood Pressure [Left Arm] 115/50 L 125/63 135/68 02 Sat by Pulse Oximetry 96 93 L 94 L I & O for Last 24 hours: Intake & Output 11/28/20 11/29/20 11/30/20 12/01/20 23:59 23:59 23:59 23:59 Intake Total 1095 / 1095 909 / 909 Output Total 550 / 550 300 / 300 Balance 545 / 545 609 / 609 Weight 245 lb 248 lb 5 oz 251 lb 2 oz Microbiology Reports for the Last 24 Hours: Microbiology 11/29/20 20:00 Blood Blood Culture - Preliminary Gram Negative Rods 11/29/20 20:00 Blood Blood Culture - Preliminary Gram Negative Rods Radiology Reports for the Last 24 Hours: RUQ U/S shows evidence of acute cholecystitis - Constitutional no acute distress - *Routine HEENT Exam Head: Present: normocephalic Eye: Present: EOMI ENT: Present: mucous membranes moist - *Routine Neck Exam Present: supple. Absent: lymphadenopathy - *Routine Cardiovascular Exam Present: RRR - *Routine Abdominal Exam Present: soft, normoactive bowel sounds, tenderness (RUQ) - *Routine Extremities Exam Absent: cyanosis, clubbing, edema - *Routine Skin Exam Present: warm. Absent: rash - *Routine Neurological Exam Present: alert, oriented X3 Assessment and Plan (1) Elevated bilirubin Status: Acute Category: Medical Code(s): R17 - Unspecified jaundice (2) Elevated LFTs Status: Acute Category: Medical Code(s): R79.89 - Other specified abnormal findings of blood chemistry (3) Cholelithiasis Status: Acute Qualifiers: Cholelithiasis location: gallbladder Cholecystitis presence: without cholecystitis Biliary obstruction: without biliary obstruction Qualified Code(s): K80.20 - Calculus of gallbladder without cholecystitis without obstruction Category: Medical Code(s): K80.20 - Calculus of gallbladder without cholecystitis without obstruction (4) Severe sepsis with acute organ dysfunction Status: Acute Category: Medical Code(s): A41.9 - Sepsis, unspecified organism; R65.20 - Severe sepsis without septic shock (5) Obesity (BMI 30.0-34.9) Status: Chronic Category: Medical Code(s): E66.9 - Obesity, unspecified (6) CAD (coron
[2020-12-01 11:03] LABS: POC Glucose,Bedside 132 (70-110)
--- NOTE | 2020-12-01 13:58 | HMH.GSCON ---
*Admission Date: 11/30/20 *History of present illness: Mr. Medrano is a 70-year-old male admitted to [facility] with right upper quadrant abdominal pain and secondary onset of nausea. Admitted on November 30, 2020. Today is hospital day #1. Events are similar to prior episodes and patient has been previously evaluated for gallbladder disease in May 2020. At that time, surgical discussion was held based on concerns regarding COVID exposure during hospitalization. Patient admitted with resulting CT demonstrating cholelithiasis. Markedly elevated LFTs. Normal total bilirubin. Mildly elevated WBC; 13,000+. Patient reports some improvement. Remains compliant on Xarelto with history of coronary artery disease; CABG in 2011. Patient has had recent cardiology evaluation in the past 2 to 3 weeks. Review of Systems - *Neurologic Reports headache(s), Denies localized weakness [facility] History Medical History: Reports:: Coronary Artery Disease, Diabetes Mellitus Type 2, Hyperlipidemia, Hypertension, Myocardial Infarction Denies:: Cancer, Diabetes Mellitus Type 1, Internal Pacemaker, Lung Disease, MRSA, Seizures *Have you ever received a pneumonia vaccine?: Yes *Have you received a flu vaccine this season?: No Other Medical History: Reports: Other (Vaso Vagal reaction) Laterality Cases: Left: Arthroscopy Knee Other Surgeries: Yes: CABG (Bypass x5.), Cardiac Catheterization, Colonoscopy, Hernia Repair, Other. No: Pacemaker. Comment Only: Coronary Stent (5) Amputation: No Fractures: No - *Social History Last grade of school completed: Some college Smoking Status: Never smoker Alcohol Intake: never Substance Use Type: denies use *Occupational Status:: retired Housing: house Household Members: spouse *Travel in the last 8 weeks: None Family Hx:: Hypertension Meds Home Medications Medication Instructions Recorded Confirmed Type Atorvastatin Calcium [Lipitor 80mg 80 mg PO HS 10/29/17 11/29/20 History Tab] Sitagliptin Phosphate [Januvia 100 mg PO DAILY 10/29/17 11/29/20 History 100mg tablet] lisinopriL [Zestril 5mg 5 mg PO DAILY 10/29/17 11/29/20 History Tablet] bisoproloL fumarate [Zebeta 5mg 2.5 mg PO HS #0 12/04/17 11/29/20 Rx tablet] meloxicam 7.5 mg tablet 7.5 mg PO DAILY 30 Days #30 tab 09/05/18 11/29/20 History rivaroxaban 2.5 mg tablet 2.5 mg PO BID 30 Days #60 tab 09/05/18 11/29/20 History empagliflozin 12.5 mg-metformin ER 2 tab PO DAILY 07/31/19 11/29/20 History 1,000 mg tablet,extended rel 24 hr cephALEXin [cephALEXin 500mg 500 mg PO BID 11/29/20 11/29/20 History capsule*] Aspirin [Aspirin 81mg EC Tab] 81 mg PO DAILY 11/30/20 11/30/20 History Multivitamin with Minerals [One 1 each PO DAILY 11/30/20 11/30/20 History Daily Complete] Allergies Allergy/AdvReac Type Severity Reaction Status Date / Time No Known Allergies Allergy Verified 11/30/20 01:13 Exam Vital signs and Labs for Last 24 Hours: Temp Pulse Resp BP Pulse Ox 98.3 F 57 L 16 120/65 94 L 12/01/20 08:00 12/01/20 08:00 12/01/20 08:00 12/01/20 08:00 12/01/20 08:00 Laboratory Results - last 24 hr 11/30/20 16:05: POC Glucose 151 H 11/30/20 20:38: POC Glucose 152 H 12/01/20 04:56: POC Glucose 107 12/01/20 06:52: WBC 9.2 D, RBC 3.87 L, Hgb 12.8 L, Hct 37.6 L, MCV 97.1 H, MCH 33.2 H, MCHC 34.1, RDW 14.1, Plt Count 131 L, MPV 8.0, Neut % (Auto) 86.0 H, Lymph % (Auto) 7.3 L, [place] % (Auto) 4.8, Eos % (Auto) 1.4, Baso % (Auto) 0.4, Neut # (Auto) 7.9 H, Lymph # (Auto) 0.7, [place] # (Auto) 0.4, Eos # (Auto) 0.1, Baso # (Auto) 0.0, Total Counted 100, Neutrophils % (Manual) 85 H, Lymphocytes % (Manual) 7 L, Monocytes % (Manual) 8, Platelet Estimate Normal, RBC Morphology Normal 12/01/20 06:52: Sodium 138, Potassium 3.7, Chloride 108 H, Carbon Dioxide 22, Anion Gap 11.7, BUN 10 D, Creatinine 0.90, Estimated Creat Clear 111, Estimated GFR 83, Est GFR ( Amer) 101 D, Glucose 111 H, Calcium 8.1 L, [place]
--- NOTE | 2020-12-01 13:59 | P.PN_ITS ---
Subjective Narrative: Mr. Medrano is a 70-year-old male admitted for right upper quadrant abdominal pain. Elevated liver function test. Evidence of acute pancreatitis that has now resolved. Today is hospital day #2. Reports feeling better. No nausea. No emesis. WBC has corrected. Overall, there is clinical improvement however total bilirubin continues to increase; now above 5. Progress Note: A&P (1) Elevated bilirubin Status: Acute (2) Elevated LFTs Status: Acute (3) Cholelithiasis Status: Acute (4) Severe sepsis with acute organ dysfunction Status: Acute (5) Obesity (BMI 30.0-34.9) Status: Chronic (6) CAD (coronary artery disease) Status: Chronic (7) DM2 (diabetes mellitus, type 2) Status: Chronic (8) HTN (hypertension) Status: Chronic (9) Hyperlipidemia Status: Chronic Assessment and Plan for All Diagnoses:: Acute pancreatitis. Attributed to biliary tract disease. Evidence of cholecystitis with suspected gram-negative bacteremia. Now resolving. Patient remains on antibiotics. WBC and liver function test are improving. However, continued elevation of total bilirubin is noted. Laparoscopic cholecystectomy will be indicated. Total bilirubin needs to demonstrate trend towards normal value. Otherwise, ERCP or MRCP recommended prior to laparoscopic cholecystectomy. Exam Vital signs and Labs for Last 24 Hours: Temp Pulse Resp BP Pulse Ox 98.3 F 57 L 16 120/65 94 L 12/01/20 08:00 12/01/20 08:00 12/01/20 08:00 12/01/20 08:00 12/01/20 08:00 Laboratory Results - last 24 hr 11/30/20 16:05: POC Glucose 151 H 11/30/20 20:38: POC Glucose 152 H 12/01/20 04:56: POC Glucose 107 12/01/20 06:52: WBC 9.2 D, RBC 3.87 L, Hgb 12.8 L, Hct 37.6 L, MCV 97.1 H, MCH 33.2 H, MCHC 34.1, RDW 14.1, Plt Count 131 L, MPV 8.0, Neut % (Auto) 86.0 H, Lymph % (Auto) 7.3 L, [place] % (Auto) 4.8, Eos % (Auto) 1.4, Baso % (Auto) 0.4, Neut # (Auto) 7.9 H, Lymph # (Auto) 0.7, [place] # (Auto) 0.4, Eos # (Auto) 0.1, Baso # (Auto) 0.0, Total Counted 100, Neutrophils % (Manual) 85 H, Lymphocytes % (Manual) 7 L, Monocytes % (Manual) 8, Platelet Estimate Normal, RBC Morphology Normal 12/01/20 06:52: Sodium 138, Potassium 3.7, Chloride 108 H, Carbon Dioxide 22, Anion Gap 11.7, BUN 10 D, Creatinine 0.90, Estimated Creat Clear 111, Estimated GFR 83, Est GFR ( Amer) 101 D, Glucose 111 H, Calcium 8.1 L, Total Bilirubin 5.4 H, AST 250 H D, ALT 439 H*, Alkaline Phosphatase 123, Total Protein 5.6 L, Albumin 3.0 L, Globulin 2.6, Albumin/Globulin Ratio 1.2 12/01/20 10:52: POC Glucose 132 H I & O for Last 24 hours: Intake & Output 11/29/20 11/30/20 12/01/20 12/02/20 11:59 11:59 11:59 11:59 Intake Total 375 / 375 1629 / 1629 Output Total 300 / 300 550 / 550 Balance 75 / 75 1079 / 1079 Weight 112.633 kg 113.908 kg Microbiology Reports for the Last 24 Hours: Microbiology 11/29/20 20:00 Blood Blood Culture - Preliminary Gram Negative Rods 11/29/20 20:00 Blood Blood Culture - Preliminary Gram Negative Rods - Constitutional no acute distress - *Routine Abdominal Exam Present: soft Comments: Minimally tender. Nondistended.
--- NOTE | 2020-12-01 15:06 | INFXCTL.NOTE ---
pt aox4, c/o headache once this shift, medicated wit prn toradol per mar with good effectiveness, does not require o2 support, ambulates without difficulty, vss and has remained afebrile t/o shift, he has denied abd pain, bowel sounds active x4, tolerating po intake.
[2020-12-01 15:56] VITALS: BP 152/72; PULSE 63; RESP 18; TEMP 36.8; O2SAT 98
--- NOTE | 2020-12-01 17:25 | PC.NURSE ---
NO ACUTE CHANGES, MEDICATED PER MAR FOR HEADACHE. ABD SOFT/NON-TENDER ON PALPATION, BOWEL SOUNDS ACTIVE AND ABD NON-DISTENDED.
[2020-12-01 20:00] VITALS: BP 129/69; PULSE 80; RESP 16; TEMP 37.2; O2SAT 97
--- NOTE | 2020-12-01 22:39 | PC.NURSE ---
[address] PATIENT AWAKE .PATIENT STATED NO NEEDS AT THIS TIME. TRASH AND LINENS EMPTIED
[2020-12-02 00:44] LABS: POC Glucose,Bedside 154 (70-110)
--- NOTE | 2020-12-02 03:29 | PC.NURSE ---
A&OX4. TOLERATING RA WELL. PT HAS NOT C/O ANY PAIN THIS SHIFT, HEADACHE IS MUCH BETTER. PT UP INDEPENDENTLY IN ROOM. NPO AT THIS TIME. HAS SLEPT MAJORITY OF SHIFT. VSS WILL CONTINUE TO MONITOR.
[2020-12-02 03:52] VITALS: BP 160/86; PULSE 72; RESP 16; TEMP 37.1; O2SAT 96
[2020-12-02 05:15] VITALS: BMI 32.1
[2020-12-02 05:33] LABS: POC Glucose,Bedside 135 (70-110)
[2020-12-02 06:17] LABS: Chloride 107 mmol/L (98-107); Potassium 3.5 mmoL/L (3.5-5.1); Sodium 138 mmol/L (136-145)
--- NOTE | 2020-12-02 06:18 | PC.NURSE ---
[address]00 [address] PATIENT ASLEEP . TRASH EMPTIED .
[2020-12-02 06:19] LABS: Alanine Aminotransferase 295 U/L (12-78); Aspartate Amino Transferase 110 U/L (17-59); Blood Urea Nitrogen 8 mg/dl (9-20); Creatinine Clearance Estimated 110 mL/min (50-200); Estimated Glomerular Filt Rate 96 ml/min (>60); GFR (African American) 116 ML/MIN (>60)
[2020-12-02 06:20] LABS: Albumin Level 3.2 g/dl (3.5-5.0); Albumin/Globulin Ratio 1.1 (1.1-1.8); Alkaline Phosphatase 161 U/L (38-126); Anion Gap 10.5 mEq/L (5-15); Calcium 8.3 mg/dl (8.4-10.2); Carbon Dioxide 24 mmol/L (22.0-30.0); Globulin 2.9 g/dL (1.3-3.2); Glucose 129 mg/dl (74-100); Total Protein,Serum 6.1 g/dl (6.3-8.2)
[2020-12-02 08:00] VITALS: BP 141/79; PULSE 53; RESP 17; TEMP 37.2; O2SAT 94
--- NOTE | 2020-12-02 08:08 | HMH.GSPN ---
Subjective Narrative: Patient is a 70-year-old male whom I had seen in the office in August for gallbladder after he was referred by Dr. Marcum. He has a history of coronary artery disease with previous myocardial infarction, numerous stents placed, previous CABG, diabetes mellitus, hyperlipidemia, hypertension. In May he did have a couple of attacks which were consistent with gallbladder disease and he was found to have gallstones by CT scan after evaluation in the emergency department at that time. Definitive gallbladder ultrasound performed on 05/29/2020 which revealed multiple gallstones and findings consistent with steatosis of the liver. Moderate sized calcified gallstone within the neck of the gallbladder. He had been reluctant to undergo surgical consultation initially due to concerns about Covid. At that time I felt that cholecystectomy may be reasonable. Plan was for relatively urgent cardiac risk assessment with planned elective elective cholecystectomy. Recently he presented to the emergency department with similar symptoms although these were somewhat more severe and he had associated shaking. Evaluation revealed elevated white blood cell count and elevated liver function tests as well as bilirubin and elevated lipase. CT scan revealed findings of gallstones and incidental umbilical hernia. He was admitted for inpatient management. Gallbladder ultrasound revealed findings of gallstones with gallbladder wall thickening and a 3.3 mm common bile duct. He was seen by general surgery on-call over the weekend. He has been on intravenous antibiotics. Xarelto has been held. He feels somewhat better. Progress Note: A&P (1) Elevated bilirubin Status: Acute (2) Elevated LFTs Status: Acute (3) Cholelithiasis Status: Acute (4) Severe sepsis with acute organ dysfunction Status: Acute (5) Obesity (BMI 30.0-34.9) Status: Chronic (6) CAD (coronary artery disease) Status: Chronic (7) DM2 (diabetes mellitus, type 2) Status: Chronic (8) HTN (hypertension) Status: Chronic (9) Hyperlipidemia Status: Chronic Assessment and Plan for All Diagnoses:: Patient has cholelithiasis with probable component of acute cholecystitis. It is concerning given the degree of elevation of liver function test with mild elevation of lipase on presentation. I will have gastroenterology see the patient to see if any indications for possible ERCP. However, this could be Mirizzi's Syndrome with gallbladder distention creating secondary obstruction of the common hepatic duct. Will likely need cholecystectomy in the near future with possible cholangiogram pending gastroenterology recommendations. Exam Vital signs and Labs for Last 24 Hours: Temp Pulse Resp BP Pulse Ox 98.7 F 72 16 160/86 H 96 12/02/20 03:52 12/02/20 03:52 12/02/20 03:52 12/02/20 03:52 12/02/20 03:52 Laboratory Results - last 24 hr 12/01/20 10:52: POC Glucose 132 H 12/01/20 19:59: POC Glucose 154 H 12/02/20 05:11: POC Glucose 135 H 12/02/20 05:56: Sodium 138, Potassium 3.5, Chloride 107, Carbon Dioxide 24, Anion Gap 10.5, BUN 8 L, Creatinine 0.80, Estimated Creat Clear 110, Estimated GFR 96, Est GFR ( Amer) 116, Glucose 129 H, Calcium 8.3 L, Total Bilirubin 3.0 H, AST 110 H D, ALT 295 H D, Alkaline Phosphatase 161 H, Total Protein 6.1 L, Albumin 3.2 L, Globulin 2.9, Albumin/Globulin Ratio 1.1 I & O for Last 24 hours: Intake & Output 11/29/20 11/30/20 12/01/20 12/02/20 11:59 11:59 11:59 11:59 Intake Total 375 / 375 1629 / 1629 655 / 655 Output Total 300 / 300 550 / 550 Balance 75 / 75 1079 / 1079 655 / 655 Weight 248 lb 5 oz 251 lb 2 oz 250 lb 8 oz Microbiology Reports for the Last 24 Hours: Microbiology 11/29/20 20:00 Blood Blood Culture - Preliminary Gram Negative Rods 11/29/20 20:00 Blood Blood Culture - Preliminary Gram Negative Rods
--- NOTE | 2020-12-02 08:45 | HMH.ACPN2 ---
<Meahgan Muñoz - Last Filed: 12/02/20 08:45> Internal Medicine - PN: Subj *Date: 12/02/20 *Time: 08:45 Interval history: Patient states he is doing okay this morning. Is taking clear liquids. He is passing flatus. He is voiding QS. He has some abdominal soreness. He does complain of a headache. is wondering if gabapentin might help. Patient did have tramadol which seems to have helped. Laboratory data this morning shows normal electrolytes with a BUN of 8 and creatinine of 0.8. Liver function studies have improved with an AST of 110 and ALT of 295. Total bilirubin has decreased to 3. Exam Vital signs and Labs for Last 24 Hours: Temp Pulse Resp BP Pulse Ox 99.0 F 53 L 17 141/79 H 94 L 12/02/20 08:00 12/02/20 08:00 12/02/20 08:00 12/02/20 08:00 12/02/20 08:00 Laboratory Results - last 24 hr 12/01/20 10:52: POC Glucose 132 H 12/01/20 19:59: POC Glucose 154 H 12/02/20 05:11: POC Glucose 135 H 12/02/20 05:56: Sodium 138, Potassium 3.5, Chloride 107, Carbon Dioxide 24, Anion Gap 10.5, BUN 8 L, Creatinine 0.80, Estimated Creat Clear 110, Estimated GFR 96, Est GFR ( Amer) 116, Glucose 129 H, Calcium 8.3 L, Total Bilirubin 3.0 H, AST 110 H D, ALT 295 H D, Alkaline Phosphatase 161 H, Total Protein 6.1 L, Albumin 3.2 L, Globulin 2.9, Albumin/Globulin Ratio 1.1 I & O for Last 24 hours: Intake & Output 11/29/20 11/30/20 12/01/20 12/02/20 11:59 11:59 11:59 11:59 Intake Total 375 / 375 1629 / 1629 655 / 655 Output Total 300 / 300 550 / 550 Balance 75 / 75 1079 / 1079 655 / 655 Weight 248 lb 5 oz 251 lb 2 oz 250 lb 8 oz Microbiology Reports for the Last 24 Hours: Microbiology 11/29/20 20:00 Blood Blood Culture - Preliminary Gram Negative Rods 11/29/20 20:00 Blood Blood Culture - Preliminary Gram Negative Rods - Constitutional no acute distress Comments: And alert. is at bedside. - *Routine Respiratory Exam Present: CTA bilaterally (Anteriorly and posteriorly) - *Routine Cardiovascular Exam Present: RRR - *Routine Abdominal Exam Present: soft, normoactive bowel sounds, tenderness (Mildly diffusely tender). Absent: distended, guarding - *Routine Extremities Exam Absent: edema, calf tenderness - *Routine Neurological Exam Present: alert, oriented X3 Assessment and Plan (1) Elevated bilirubin Status: Acute Category: Medical Code(s): R17 - Unspecified jaundice (2) Elevated LFTs Status: Acute Category: Medical Code(s): R79.89 - Other specified abnormal findings of blood chemistry (3) Cholelithiasis Status: Acute Qualifiers: Cholelithiasis location: gallbladder Cholecystitis presence: without cholecystitis Biliary obstruction: without biliary obstruction Qualified Code(s): K80.20 - Calculus of gallbladder without cholecystitis without obstruction Category: Medical Code(s): K80.20 - Calculus of gallbladder without cholecystitis without obstruction (4) Severe sepsis with acute organ dysfunction Status: Acute Category: Medical Code(s): A41.9 - Sepsis, unspecified organism; R65.20 - Severe sepsis without septic shock (5) Obesity (BMI 30.0-34.9) Status: Chronic Category: Medical Code(s): E66.9 - Obesity, unspecified (6) CAD (coronary artery disease) Status: Chronic Qualifiers: Coronary Disease-Associated Artery/Lesion type: bypass graft [place] vs. transplanted heart: unspecified whether [place] or transplanted heart Associated angina: with unspecified angina Qualified Code(s): I25.709 - Atherosclerosis of coronary artery bypass graft(s), unspecified, with unspecified angina pectoris Category: Medical Code(s): I25.10 - Atherosclerotic heart disease of [place] coronary artery without angina pectoris (7) DM2 (diabetes mellitus, type 2) Status: Chronic Qualifiers: Diabetes mellitus chcf insulin use: unspecified chcf insu
[2020-12-02 11:52] LABS: POC Glucose,Bedside 102 (70-110)
--- NOTE | 2020-12-02 14:07 | HMH.CONS ---
*Admission Date: 11/30/20 *Reason for consult:: biliary pancreatitis/elevated LFTs *History of present illness: Mr. Medrano is a 70-year-old male admitted to [facility] with right upper quadrant abdominal pain and secondary onset of nausea. Admitted on November 30, 2020. Patient has been previously evaluated for gallbladder disease in May 2020. At that time, surgical discussion was held based on concerns regarding COVID exposure during hospitalization. Patient admitted with resulting CT demonstrating cholelithiasis. Markedly elevated LFTs. Mildly elevated WBC; 13,000+. Patient reports some improvement. Remains compliant on Xarelto with history of coronary artery disease; CABG in 2011. Patient has had recent cardiology evaluation in the past 2 to 3 weeks. Gastroenterology was consulted for possible biliary pancreatitis and elevation of LFTs. Upon arrival the patient had a WBCs of 13.5 and that has now normalized. He had a lipase of 472 that is now at 95. However his liver enzymes show a bilirubin of 3.8, AST of 918, ALT of 713 and alk phos of 120 on arrival. That is improved since admission down to 3.0, AST of 110, ALT of 295 and alk phos 161. CT scan showed cholelithiasis but no abnormality of the pancreas liver or pancreatic duct or common bile duct. Ultrasound showed common bile duct within normal limits but noted possible acute cholecystitis. Patient has been treated with antibiotics and IV fluids since admission. He denies any history of pancreatitis or liver disease. He denies any history of elevation in his liver enzymes. He denies any alcohol use or smoking. He denies any NSAID use. He knows that he has needed his gallbladder removed and reports that his symptoms were exactly the same as previous episodes of biliary dyskinesia. His physical exam today is relatively unremarkable. He has no abdominal discomfort. General surgery has been consulted for possible cholecystectomy and the patient is n.p.o. [facility] History Medical History: Reports:: Coronary Artery Disease, Diabetes Mellitus Type 2, Hyperlipidemia, Hypertension, Myocardial Infarction Denies:: Cancer, Diabetes Mellitus Type 1, Internal Pacemaker, Lung Disease, MRSA, Seizures *Have you ever received a pneumonia vaccine?: Yes *Have you received a flu vaccine this season?: No Other Medical History: Reports: Other (Vaso Vagal reaction) Laterality Cases: Left: Arthroscopy Knee Other Surgeries: Yes: CABG (Bypass x5.), Cardiac Catheterization, Colonoscopy, Hernia Repair, Other. No: Pacemaker. Comment Only: Coronary Stent (5) Amputation: No Fractures: No - *Social History Last grade of school completed: Some college Smoking Status: Never smoker Alcohol Intake: never Substance Use Type: denies use *Occupational Status:: retired Housing: house Household Members: spouse *Travel in the last 8 weeks: None Family Hx:: Hypertension Review of Systems - Review of Systems Review of systems:: pertinent systems reviewed and negative unless documented below - Constitutional Denies anorexia, Denies body ache(s), Denies chills, Denies fatigue, Denies fever(s), Denies weight loss - ENT Denies dizziness, Denies hearing loss, Denies hoarseness, Denies neck pain, Denies throat swelling - *Cardiovascular Denies chest pain, Denies shortness of breath - *Respiratory Denies chest congestion, Denies cough, Denies shortness of breath - *Gastrointestinal Reports abdominal pain, Reports constipation, Reports nausea, Denies heartburn, Denies vomiting - *Musculoskeletal Denies abnormal walking, Denies muscle weakness, Denies numbness, Denies tingling - *Neurologic Reports headache(s), Denies behavioral changes, Denies seizure-like activity, Denies localized weakness, Denies tingling/numbness/burning sensations - Endocrine Denies cold intolerance, Denies excessive sweating, Denies flushing - Hematologic/Lymphatic Denies easy bleeding, Denies easy bruising Meds Home Me
[2020-12-02 14:51] VITALS: BP 154/79; PULSE 52; RESP 18; TEMP 37.4; O2SAT 97
--- NOTE | 2020-12-02 15:29 | MR_ITS ---
PROCEDURE INFORMATION: Exam: MR Abdomen Without Contrast Exam date and time: 12/02/2020 3:29 PM Age: 70 years old Clinical indication: Abdominal pain; Additional info: Gallstones. Abdomen pain. TECHNIQUE: Imaging protocol: MR of the abdomen without contrast. COMPARISON: CT ABDOMEN PELVIS W CON 11/29/2020 9:03 PM FINDINGS: Liver: No mass. Gallbladder and bile ducts: 3 or 4 small gallstones. No inflammatory changes to the gallbladder. Normal bile ducts. Pancreas: Unremarkable. No ductal dilation. Spleen: Unremarkable. No splenomegaly. Adrenal glands: Unremarkable. No mass. Kidneys and ureters: 2.3 cm simple left renal cortical cyst. 1.0 cm simple right renal cortical cyst. Otherwise, unremarkable. No stones or hydronephrosis. Stomach and bowel: Visualized stomach and intestines are unremarkable. Intraperitoneal space: No free fluid. Arteries: No abdominal aortic aneurysm. Bones/joints: Unremarkable. Soft tissues: Unremarkable. IMPRESSION: Gallstones without evidence of cholecystitis. Normal bile ducts. COMMENTS: Consistent with the [employer]'s Incidental Findings Committee white paper (J Am Elida Radiol 2018): Any incidental renal lesion less than 1 cm or classified as too small to characterize, or any incidental cystic renal lesion characterized as simple-appearing, is likely benign. No follow-up imaging is recommended for these lesions per consensus recommendations based on imaging criteria.
[2020-12-02 15:37] VITALS: BMI 32.1
--- NOTE | 2020-12-02 17:49 | PC.NURSE ---
HE IS AOX4, ABLE TO MAKE NEEDS KNOWN TO STAFF, HAS NOT C/O HEADACHE THIS SHIFT. NO ACUTE CHANGES.
[2020-12-02 19:53] VITALS: BP 175/85; PULSE 53; RESP 16; TEMP 36.6; O2SAT 98
--- NOTE | 2020-12-02 20:49 | PC.NURSE ---
trash pulled and snack passed at this time
[2020-12-02 21:27] LABS: POC Glucose,Bedside 153 (70-110)
[2020-12-03] VITALS (21 sets, daily range): BP systolic 125–177; BP diastolic 69–86; PULSE 50–61; RESP 12–18; TEMP 35.9–37.7; O2SAT 94–99; BMI 31.6
--- NOTE | 2020-12-03 04:51 | PC.NURSE ---
shift summary pt is alert and oriented X4. pts lung sounds are clear with sats maintained 95% or above on room air. pt voids per urinal at bedside or bathroom, urine is clear and yellow in color. pt complained of a headache once during this shift which was relieved with Tylenol. pt denies any nausea, vomiting, or diarrhea. no acute changes will continue to monitor.
--- NOTE | 2020-12-03 05:29 | PC.NURSE ---
trash pulled at this time
[2020-12-03 05:42] LABS: POC Glucose,Bedside 111 (70-110)
--- NOTE | 2020-12-03 08:16 | HMH.ACPN2 ---
<Meaghan Muñoz - Last Filed: 12/03/20 08:16> Internal Medicine - PN: Subj *Date: 12/03/20 *Time: 08:16 Interval history: Patient states he is having surgery today. He is n.p.o. He was able to eat yesterday without problems. His bowels have not moved. He is voiding QS. Patient states his only pain is his headache. He states tramadol helps for a little bit but then it comes right back. He was seen by GI yesterday please refer to note. Exam Vital signs and Labs for Last 24 Hours: Temp Pulse Resp BP Pulse Ox 97.8 F 56 L 18 145/78 H 98 12/03/20 07:58 12/03/20 07:58 12/03/20 07:58 12/03/20 07:58 12/03/20 07:58 Laboratory Results - last 24 hr 12/02/20 11:21: POC Glucose 102 12/02/20 20:44: POC Glucose 153 H 12/03/20 05:34: POC Glucose 111 H I & O for Last 24 hours: Intake & Output 11/30/20 12/01/20 12/02/20 12/03/20 11:59 11:59 11:59 11:59 Intake Total 375 / 375 1629 / 1629 775 / 775 240 / 240 Output Total 300 / 300 550 / 550 0 / 0 Balance 75 / 75 1079 / 1079 775 / 775 240 / 240 Weight 248 lb 5 oz 251 lb 2 oz 250 lb 8 oz 246 lb 2 oz Microbiology Reports for the Last 24 Hours: Microbiology 11/29/20 20:00 Blood Blood Culture - Final Gram Negative Rods 11/29/20 20:00 Blood Blood Culture - Final Gram Negative Rods - Constitutional no acute distress Comments: Appears comfortable sitting on the bedside. - *Routine Respiratory Exam Present: CTA bilaterally (Anteriorly and posteriorly) - *Routine Cardiovascular Exam Present: RRR - *Routine Abdominal Exam Present: soft, normoactive bowel sounds. Absent: tenderness - *Routine Extremities Exam Present: edema (Trace bilaterally). Absent: calf tenderness - *Routine Neurological Exam Present: alert, oriented X3 Assessment and Plan (1) Elevated bilirubin Status: Acute Category: Medical Code(s): R17 - Unspecified jaundice (2) Elevated LFTs Status: Acute Category: Medical Code(s): R79.89 - Other specified abnormal findings of blood chemistry (3) Cholelithiasis Status: Acute Qualifiers: Cholelithiasis location: gallbladder Cholecystitis presence: without cholecystitis Biliary obstruction: without biliary obstruction Qualified Code(s): K80.20 - Calculus of gallbladder without cholecystitis without obstruction Category: Medical Code(s): K80.20 - Calculus of gallbladder without cholecystitis without obstruction (4) Severe sepsis with acute organ dysfunction Status: Acute Category: Medical Code(s): A41.9 - Sepsis, unspecified organism; R65.20 - Severe sepsis without septic shock (5) Obesity (BMI 30.0-34.9) Status: Chronic Category: Medical Code(s): E66.9 - Obesity, unspecified (6) CAD (coronary artery disease) Status: Chronic Qualifiers: Coronary Disease-Associated Artery/Lesion type: bypass graft [place] vs. transplanted heart: unspecified whether [place] or transplanted heart Associated angina: with unspecified angina Category: Medical Code(s): I25.10 - Atherosclerotic heart disease of [place] coronary artery without angina pectoris (7) DM2 (diabetes mellitus, type 2) Status: Chronic Qualifiers: Diabetes mellitus termite helper insulin use: unspecified termite helper insulin use status Diabetes mellitus complication status: with other specified complication Qualified Code(s): E11.69 - Type 2 diabetes mellitus with other specified complication Category: Medical Code(s): E11.9 - Type 2 diabetes mellitus without complications (8) HTN (hypertension) Status: Chronic Qualifiers: Hypertension type: essential hypertension Qualified Code(s): I10 - Essential (primary) hypertension Category: Medical Code(s): I10 - Essential (primary) hypertension (9) Hyperlipidemia Status: Chronic Qualifiers: Hyperlipidemia type: unspecified Qualified Code(s): E78.5 - Hyperlipidemia, unspeci
--- NOTE | 2020-12-03 10:35 | PC.NURSE ---
CMP order placed by Pre-op staff, awaiting lab to draw blood
--- NOTE | 2020-12-03 10:51 | HMH.ACPN ---
Internal Medicine - PN: Subj *Date: 12/03/20 *Time: 10:51 Exam Vital signs and Labs for Last 24 Hours: Temp Pulse Resp BP Pulse Ox 97.8 F 56 L 18 145/78 H 98 12/03/20 07:58 12/03/20 07:58 12/03/20 07:58 12/03/20 07:58 12/03/20 07:58 Laboratory Results - last 24 hr 12/02/20 11:21: POC Glucose 102 12/02/20 20:44: POC Glucose 153 H 12/03/20 05:34: POC Glucose 111 H I & O for Last 24 hours: Intake & Output 11/30/20 12/01/20 12/02/20 12/03/20 23:59 23:59 23:59 23:59 Intake Total 1095 / 1095 1564 / 1564 360 / 360 Output Total 550 / 550 300 / 300 0 / 0 Balance 545 / 545 1264 / 1264 360 / 360 0 / 0 Weight 112.633 kg 113.908 kg 113.6 kg 111.64 kg Microbiology Reports for the Last 24 Hours: Microbiology 11/29/20 20:00 Blood Blood Culture - Final Escherichia coli 11/29/20 20:00 Blood Blood Culture - Final Escherichia coli Assessment and Plan (1) Elevated bilirubin Status: Acute Category: Medical Code(s): R17 - Unspecified jaundice (2) Elevated LFTs Status: Acute Category: Medical Code(s): R79.89 - Other specified abnormal findings of blood chemistry (3) Cholelithiasis Status: Acute Qualifiers: Cholelithiasis location: gallbladder Cholecystitis presence: without cholecystitis Biliary obstruction: without biliary obstruction Qualified Code(s): K80.20 - Calculus of gallbladder without cholecystitis without obstruction Category: Medical Code(s): K80.20 - Calculus of gallbladder without cholecystitis without obstruction (4) Severe sepsis with acute organ dysfunction Status: Acute Category: Medical Code(s): A41.9 - Sepsis, unspecified organism; R65.20 - Severe sepsis without septic shock (5) Obesity (BMI 30.0-34.9) Status: Chronic Category: Medical Code(s): E66.9 - Obesity, unspecified (6) CAD (coronary artery disease) Status: Chronic Qualifiers: Coronary Disease-Associated Artery/Lesion type: bypass graft [place] vs. transplanted heart: unspecified whether [place] or transplanted heart Associated angina: with unspecified angina Category: Medical Code(s): I25.10 - Atherosclerotic heart disease of [place] coronary artery without angina pectoris (7) DM2 (diabetes mellitus, type 2) Status: Chronic Qualifiers: Diabetes mellitus mcfp insulin use: unspecified continuous churn buttermaker insulin use status Diabetes mellitus complication status: with other specified complication Qualified Code(s): E11.69 - Type 2 diabetes mellitus with other specified complication Category: Medical Code(s): E11.9 - Type 2 diabetes mellitus without complications (8) HTN (hypertension) Status: Chronic Qualifiers: Hypertension type: essential hypertension Qualified Code(s): I10 - Essential (primary) hypertension Category: Medical Code(s): I10 - Essential (primary) hypertension (9) Hyperlipidemia Status: Chronic Qualifiers: Hyperlipidemia type: unspecified Qualified Code(s): E78.5 - Hyperlipidemia, unspecified Category: Medical Code(s): E78.5 - Hyperlipidemia, unspecified (10) Headache Status: Chronic Category: Medical Code(s): R51.9 - Headache, unspecified (11) E coli bacteremia Status: Acute Category: Medical Code(s): R78.81 - Bacteremia; B96.20 - Unspecified Escherichia coli [E. coli] as the cause of diseases classified elsewhere The patient's infection will respond to the chosen ABx?: Yes Is the patient receiving the right drug, dose, and route?: Yes Could a more targeted ABx be ordered?: No (E. COLI IN BLOOD SEGURA SENSITIVE)
[2020-12-03 10:55] LABS: Chloride 107 mmol/L (98-107); Potassium 3.5 mmoL/L (3.5-5.1); Sodium 139 mmol/L (136-145)
[2020-12-03 10:58] LABS: Alanine Aminotransferase 204 U/L (12-78); Albumin Level 3.3 g/dl (3.5-5.0); Albumin/Globulin Ratio 1.1 (1.1-1.8); Alkaline Phosphatase 218 U/L (38-126); Anion Gap 10.5 mEq/L (5-15); Aspartate Amino Transferase 70 U/L (17-59); Bilirubin,Total 2.2 mg/dl (0.2-1.3); Blood Urea Nitrogen 8 mg/dl (9-20); Carbon Dioxide 25 mmol/L (22.0-30.0); Creatinine Clearance Estimated 109 mL/min (50-200); Estimated Glomerular Filt Rate 111 ml/min (>60); GFR (African American) 135 ML/MIN (>60); Globulin 2.9 g/dL (1.3-3.2); Total Protein,Serum 6.2 g/dl (6.3-8.2)
[2020-12-03 10:59] LABS: Calcium 8.4 mg/dl (8.4-10.2); Glucose 134 mg/dl (74-100)
--- NOTE | 2020-12-03 11:37 | HMH.ANESCL ---
[facility] Anesthesia Checklist - Patient Identification Patient Identification: Arm Band - Structural Data Admitted From: Home Planned Operative Procedure/s: Lap. cholecystectomy Consent for Planned Operative Procedure(s) Verified: Yes - NPO Status Verified Time NPO: 00:00 - Additional verifications Anesthesia Reactions: No - Airway Assessment C-Spine Mobility Assessed: Yes TMJ Mobility Assessed: Yes Dentition: Poor Dentition (Multiple losse. Patient understands risks of damaging teeth) - Neurological Assessment Level of Consciousness: Awake Hx Seizures: No Numbness or tingling in extremities: No - Anesthesia Plan Anesthesia Risk discussed: Yes Anesthesia Plan: Verified ASA Class: III Anesthesia Type: General [facility] History I have reviewed the patient's past medical history: Yes Medical History: Reports:: Coronary Artery Disease, Diabetes Mellitus Type 2, Hyperlipidemia, Hypertension, Myocardial Infarction Denies:: Cancer, Diabetes Mellitus Type 1, Internal Pacemaker, Lung Disease, MRSA, Seizures *Have you ever received a pneumonia vaccine?: Yes *Have you received a flu vaccine this season?: No Other Medical History: Reports: Other (Vaso Vagal reaction) Anesthesia experience/problems:: None Laterality Cases: Left: Arthroscopy Knee Other Surgeries: Yes: CABG (Bypass x5.), Cardiac Catheterization, Colonoscopy, Hernia Repair, Other. No: Pacemaker. Comment Only: Coronary Stent (5) Amputation: No Fractures: No - *Social History Last grade of school completed: Some college Smoking Status: Never smoker Alcohol Intake: never Substance Use Type: denies use *Occupational Status:: retired Housing: house Household Members: spouse *Travel in the last 8 weeks: None Family Hx:: Hypertension
--- NOTE | 2020-12-03 13:22 | HMH.OPNOTE ---
Date of procedure: 12/03/20 Pre-op Diagnosis:: cholecystitis Post-op Diagnosis:: Same Procedure performed:: Laparoscopic cholecystectomy Surgeon:: Bernardino Nick MD IRRIGATION TEACHER:: Other Anesthesia: GETA Estimated blood loss (mL): 25 Clinical Note:: Patient is a 70-year-old male whom I had seen in the office in August for gallbladder after he was referred by Dr. Marcum. He has a history of coronary artery disease with previous myocardial infarction, numerous stents placed, previous CABG, diabetes mellitus, hyperlipidemia, hypertension. In May he did have a couple of attacks which were consistent with gallbladder disease and he was found to have gallstones by CT scan after evaluation in the emergency department at that time. Definitive gallbladder ultrasound performed on 05/29/2020 which revealed multiple gallstones and findings consistent with steatosis of the liver. Moderate sized calcified gallstone within the neck of the gallbladder. He had been reluctant to undergo surgical consultation initially due to concerns about Covid. At that time I felt that cholecystectomy may be reasonable. Plan was for relatively urgent cardiac risk assessment with planned elective elective cholecystectomy. Recently he presented to the emergency department with similar symptoms although these were somewhat more severe and he had associated shaking. Evaluation revealed elevated white blood cell count and elevated liver function tests as well as bilirubin and elevated lipase. CT scan revealed findings of gallstones. He was admitted for inpatient management. Gallbladder ultrasound revealed findings of gallstones with gallbladder wall thickening and a 3.3 mm common bile duct. He was seen by general surgery on-call over the weekend. He has been on intravenous antibiotics. Xarelto has been held. Consideration was being given for gastroenterology consultation for possible ERCP. However, GI physician was unavailable. Patient did show improvement in his bilirubin and liver function tests. He underwent MRCP which revealed normal bile ducts . Plan was made to proceed with cholecystectomy. Operative findings:: Patient had a thickened gallbladder with stones. The neck of the gallbladder tapered to the cystic duct. Operative note:: Patient was taken to the operating room. He was given preoperative intravenous antibiotics. In the operating room he was placed in a supine position. General anesthesia was induced via endotracheal tube. Abdomen was prepped and draped in the standard surgical fashion. Subumbilical skin incision was made and while performing abdominal wall left Veress needle was inserted. CO2 pneumoperitoneum was achieved to 15 mmHg. 11 mm optical trocar was inserted at the umbilicus. Intraperitoneal contents were visualized. He was positioned in reverse Trendelenburg left side down. A couple 5 mm trochars were inserted in the right upper abdomen. 10 mm trocar was inserted in the epigastrium. Liver was elevated and gallbladder was identified and grasped retracted anteriorly and superiorly over the dome of the liver. Gallbladder was somewhat thickened. There was fatty infiltration around the neck of the gallbladder. Infundibulum/Gonzalez's pouch of the gallbladder was retracted anterior laterally. Blunt dissection was carried out the neck of the gallbladder bluntly incising the visceral peritoneum. Ultimately the cystic duct and cystic artery were clearly identified and isolated. Cystic duct was multiply clipped and sharply divided. The neck of the gallbladder tapered to the cystic duct. The cystic artery was carefully coagulated with FLORIN ultrasonic harmonic francine and divided. Gallbladder was dissected free from the liver in a retrograde fashion using FLORIN ultrasonic harmonic francine. There is a small amount of unavoidable spillage of bile during the dissection process and this was immediately suctioned free. Gallbladder was placed within an En
[2020-12-03 13:41] LABS: POC Glucose,Bedside 123 (70-110)
--- NOTE | 2020-12-03 14:00 | PC.NURSE ---
Report received from Norman Beaulieu RN @ this time
--- NOTE | 2020-12-03 14:26 | PC.NURSE ---
Pt back to floor @ 1405. Drowsy, but A&Ox4. Lungs CTA. Resp easy, unlabored. Abdomen round, tender w/ 4 surg lap dressings intact. Pt denies pain. Currently eating ice chips, tolerating well. VSS. Call joel w/in reach. is currently @ bedside. No needs voiced @ this time.
--- NOTE | 2020-12-03 14:28 | PC.NURSE ---
1400-detailed report called to ADA Rascon 1402-pt transported to med/surg room 207 via hospital bed w/dulce rails up and left in care of ADA Rascon with bed locked in lowest position, vss, pt stable
--- NOTE | 2020-12-03 15:42 | HMH.ANESCL ---
[facility] Anesthesia Checklist - Patient Identification Patient Identification: Arm Band - Structural Data Admitted From: Inpatient Planned Operative Procedure/s: Lap Delia Consent for Planned Operative Procedure(s) Verified: Yes Verified Documents: Surgical Consent, History and Physical - NPO Status Verified Time NPO: 00:00 - Additional verifications Anesthesia Reactions: No - Airway Assessment C-Spine Mobility Assessed: Yes TMJ Mobility Assessed: Yes Dentition: Good Dentition - Neurological Assessment Level of Consciousness: Awake, Alert - Anesthesia Plan Anesthesia Risk discussed: Yes Anesthesia Plan: Verified ASA Class: III Anesthesia Type: General [facility] History Medical History: Reports:: Coronary Artery Disease, Diabetes Mellitus Type 2, Hyperlipidemia, Hypertension, Myocardial Infarction Denies:: Cancer, Diabetes Mellitus Type 1, Internal Pacemaker, Lung Disease, MRSA, Seizures *Have you ever received a pneumonia vaccine?: Yes *Have you received a flu vaccine this season?: No Other Medical History: Reports: Other (Vaso Vagal reaction) Anesthesia experience/problems:: None Laterality Cases: Left: Arthroscopy Knee Other Surgeries: Yes: CABG (Bypass x5.), Cardiac Catheterization, Colonoscopy, Hernia Repair, Other. No: Pacemaker. Comment Only: Coronary Stent (5) Amputation: No Fractures: No - *Social History Last grade of school completed: Some college Smoking Status: Never smoker Alcohol Intake: never Substance Use Type: denies use *Occupational Status:: retired Housing: house Household Members: spouse *Travel in the last 8 weeks: None Family Hx:: Hypertension
--- NOTE | 2020-12-03 15:44 | HMH.ANESI ---
[facility] Anesthesia Record Part I Intake, IV Amount: 1,100 Estimated blood loss (mL): 5 Urine output (mL): 0 Blood Pressure: 125/70 SaO2: 94 Pulse Rate: 55 Respiratory Rate: 12 Temperature: 97.8 F Patient is:: Awake, Drowsy Stable to PACU at:: 13:40
[2020-12-03 17:31] LABS: POC Glucose,Bedside 110 (70-110)
[2020-12-03 21:46] LABS: POC Glucose,Bedside 144 (70-110)
[2020-12-04] VITALS: BP 140/68; PULSE 56; RESP 20; TEMP 36.8; O2SAT 96
[2020-12-04 04:00] VITALS: BP 135/70; PULSE 58; RESP 20; TEMP 36.7; O2SAT 98
--- NOTE | 2020-12-04 04:21 | PC.NURSE ---
pt has had no acute changes. requested ice for shoulder discomfort. pain meds x1. iv patent. sleeping at this time. vss. call light in reach. will continue to monitor
[2020-12-04 05:16] VITALS: RESP 16
[2020-12-04 05:25] LABS: POC Glucose,Bedside 114 (70-110)
--- NOTE | 2020-12-04 06:59 | HMH.GSPN ---
Subjective Patient reports: feels better Narrative: Patient denies any abdominal symptoms at this time. No pain. Only complaint is headache this morning. Progress Note: A&P (1) Elevated bilirubin Status: Acute (2) Elevated LFTs Status: Acute (3) Cholelithiasis Status: Acute (4) Severe sepsis with acute organ dysfunction Status: Acute (5) Obesity (BMI 30.0-34.9) Status: Chronic (6) CAD (coronary artery disease) Status: Chronic (7) DM2 (diabetes mellitus, type 2) Status: Chronic (8) HTN (hypertension) Status: Chronic (9) Hyperlipidemia Status: Chronic (10) Headache Status: Chronic (11) E coli bacteremia Status: Acute Assessment and Plan for All Diagnoses:: Okay for discharge home from surgical standpoint this point. Exam Vital signs and Labs for Last 24 Hours: Temp Pulse Resp BP Pulse Ox 98.1 F 58 L 16 135/70 98 12/04/20 04:00 12/04/20 04:00 12/04/20 05:16 12/04/20 04:00 12/04/20 04:00 Laboratory Results - last 24 hr 12/03/20 10:42: Sodium 139, Potassium 3.5, Chloride 107, Carbon Dioxide 25, Anion Gap 10.5, BUN 8 L, Creatinine 0.70, Estimated Creat Clear 109, Estimated GFR 111, Est GFR ( Amer) 135, Glucose 134 H, Calcium 8.4, Total Bilirubin 2.2 H, AST 70 H D, ALT 204 H D, Alkaline Phosphatase 218 H, Total Protein 6.2 L, Albumin 3.3 L, Globulin 2.9, Albumin/Globulin Ratio 1.1 12/03/20 13:34: POC Glucose 123 H 12/03/20 16:39: POC Glucose 110 12/03/20 20:24: POC Glucose 144 H 12/04/20 05:18: POC Glucose 114 H I & O for Last 24 hours: Intake & Output 12/01/20 12/02/20 12/03/20 12/04/20 11:59 11:59 11:59 11:59 Intake Total 1629 / 1629 775 / 775 240 / 240 1544 / 1544 Output Total 550 / 550 0 / 0 725 / 725 Balance 1079 / 1079 775 / 775 240 / 240 819 / 819 Weight 251 lb 2 oz 250 lb 8 oz 246 lb 2 oz Microbiology Reports for the Last 24 Hours: Microbiology 11/29/20 20:00 Blood Blood Culture - Final Escherichia coli 11/29/20 20:00 Blood Blood Culture - Final Escherichia coli - *Routine Abdominal Exam Present: soft Comments: Some serosanguineous drainage at the umbilical site
[2020-12-04 07:40] VITALS: BP 106/62; PULSE 54; RESP 17; TEMP 36.7; O2SAT 96
--- NOTE | 2020-12-04 07:48 | HMH.ACPN2 ---
<Meaghan Muñoz - Last Filed: 12/04/20 07:48> Internal Medicine - PN: Subj *Date: 12/04/20 *Time: 07:48 Interval history: Patient's only complaint is a headache this morning. It is better after receiving medication. He has been up and out of bed and is passing gas. He is eating without difficulty although he is not very hungry. Denies shortness of breath and chest pain. Patient did have cholecystectomy yesterday without problems. He has been seen by Dr. Nick and is okay for discharge. He is anxious to go home. Exam Vital signs and Labs for Last 24 Hours: Temp Pulse Resp BP Pulse Ox 98.0 F 54 L 17 106/62 L 96 12/04/20 07:40 12/04/20 07:40 12/04/20 07:40 12/04/20 07:40 12/04/20 07:40 Laboratory Results - last 24 hr 12/03/20 10:42: Sodium 139, Potassium 3.5, Chloride 107, Carbon Dioxide 25, Anion Gap 10.5, BUN 8 L, Creatinine 0.70, Estimated Creat Clear 109, Estimated GFR 111, Est GFR ( Amer) 135, Glucose 134 H, Calcium 8.4, Total Bilirubin 2.2 H, AST 70 H D, ALT 204 H D, Alkaline Phosphatase 218 H, Total Protein 6.2 L, Albumin 3.3 L, Globulin 2.9, Albumin/Globulin Ratio 1.1 12/03/20 13:34: POC Glucose 123 H 12/03/20 16:39: POC Glucose 110 12/03/20 20:24: POC Glucose 144 H 12/04/20 05:18: POC Glucose 114 H I & O for Last 24 hours: Intake & Output 12/01/20 12/02/20 12/03/20 12/04/20 11:59 11:59 11:59 11:59 Intake Total 1629 / 1629 775 / 775 240 / 240 1784 / 1784 Output Total 550 / 550 0 / 0 725 / 725 Balance 1079 / 1079 775 / 775 240 / 240 1059 / 1059 Weight 251 lb 2 oz 250 lb 8 oz 246 lb 2 oz Microbiology Reports for the Last 24 Hours: Microbiology 11/29/20 20:00 Blood Blood Culture - Final Escherichia coli 11/29/20 20:00 Blood Blood Culture - Final Escherichia coli - Constitutional no acute distress Comments: Sitting on bedside and appears comfortable - *Routine Respiratory Exam Present: CTA bilaterally (Anteriorly and posteriorly) - *Routine Cardiovascular Exam Present: RRR - *Routine Abdominal Exam Present: soft, normoactive bowel sounds, tenderness (Normal postoperative) - *Routine Extremities Exam Present: edema (Trace bilateral). Absent: calf tenderness - *Routine Neurological Exam Present: alert, oriented X3 Assessment and Plan (1) Elevated bilirubin Status: Acute Category: Medical Code(s): R17 - Unspecified jaundice (2) Elevated LFTs Status: Acute Category: Medical Code(s): R79.89 - Other specified abnormal findings of blood chemistry (3) Cholelithiasis Status: Acute Qualifiers: Cholelithiasis location: gallbladder Cholecystitis presence: without cholecystitis Biliary obstruction: without biliary obstruction Qualified Code(s): K80.20 - Calculus of gallbladder without cholecystitis without obstruction Category: Medical Code(s): K80.20 - Calculus of gallbladder without cholecystitis without obstruction (4) Severe sepsis with acute organ dysfunction Status: Acute Category: Medical Code(s): A41.9 - Sepsis, unspecified organism; R65.20 - Severe sepsis without septic shock (5) Obesity (BMI 30.0-34.9) Status: Chronic Category: Medical Code(s): E66.9 - Obesity, unspecified (6) CAD (coronary artery disease) Status: Chronic Qualifiers: Coronary Disease-Associated Artery/Lesion type: bypass graft [place] vs. transplanted heart: unspecified whether [place] or transplanted heart Associated angina: with unspecified angina Category: Medical Code(s): I25.10 - Atherosclerotic heart disease of [place] coronary artery without angina pectoris (7) DM2 (diabetes mellitus, type 2) Status: Chronic Qualifiers: Diabetes mellitus terminal operations supervisor insulin use: unspecified terminal operations supervisor insulin use status Diabetes mellitus complication status: with other specified complication Qualified Code(s): E11.69 - Type 2 diabetes mellitus with other specified c
[2020-12-04 08:00] VITALS: PULSE 54; O2SAT 96
--- NOTE | 2020-12-04 12:18 | P.PN_ITS ---
[facility] Anesthesia Record Part II Discharge Time: 14:00 Destination: Medical Surgical Department PACU nurse assessment reviewed?: Yes Patient Condition:: Good Anesthesia Complications:: None Swallowing reflex intact?: Yes Cyanosis?: No Blood Pressure: 150/77 Pulse Rate: 51 Temperature: 97.2 F Mental Status: Alert & Oriented Pain level:: 0 Nausea and/or vomitting:: None Intake, IV Amount: 0
[2020-12-04 12:19] VITALS: BP 150/77; PULSE 51; TEMP 36.2
--- NOTE | 2020-12-06 15:32 | HMH.DCSUM ---
General - General Admission date:: 11/30/20 Discharge date: 12/04/20 HPI HPI: Mr. Medrano is 70 year old male with a history of DM type 2 and CAD, 5 vessel CABG in 2011, who presented to [facility] ER last night complaining of severe upper abdominal pain associated with fever and chills. He felt nauseated briefly in the ER, denies diarrhea and constipation. He states that this episode is very similar to previous episodes he has had with his gallbladder. In May of 2020 he was evaluated for upper abdominal pain and found to have gallstones. He was reluctant to have surgery, at that time, due to the Covid 19 pandemic. He has since had several other episodes and states that he has just completed his pre op evaluation with Dr. Venegas at [facility] in [place]. The work up included an Echo done in September, and a left heart cath done approximately 2 weeks ago, which the patient states was normal, but results are not available. Hospital Course Hospital Course: The patient was admitted for further evaluation and management of his upper abdominal pain with his history of cholelithiasis. He was kept n.p.o. and surgery was consulted. A right upper quadrant ultrasound was also ordered. His abdominal CT showed cholelithiasis and a small fat-containing umbilical and left inguinal hernia. There was also bilateral ureteroceles. His abdominal ultrasound did show gallstones in the gallbladder and the gallbladder wall was thickened possibly reflecting acute cholecystitis. Dr. Valverde was consulted. The patient was started on ertapenem. His LFTs were markedly elevated and Dr. Valverde felt he would likely need a cholecystectomy, but would need to be off of his Xarelto for 48 hours before surgical intervention. The patient was started on clear liquids and tolerated these well. His blood cultures were growing gram-negative rods. He was continued on Invanz and it was felt he had acute cholecystitis. His bilirubin continued to increase. Dr. Valverde felt a laparoscopic cholecystectomy was indicated but that the patient's bilirubin needed to trend downward, otherwise an ERCP or MRCP was recommended prior to his laparoscopic cholecystectomy. Dr. Nick saw the patient as well and recommended a gastroenterology consult due to the degree of elevation of his liver function tests along with a mild elevation in his lipase initially. He wanted to know if an ERCP was indicated. The patient was seen in consultation by Suni gonzalez who felt he had acute cholecystitis with a history of biliary dyskinesia. Cholelithiasis was noted on the CT and there was no imaging evidence of common bile duct abnormalities or pancreatic duct abnormalities. She felt the patient may have acute cholangitis with an increased white blood cell count and he had an intermediate to high risk of common bile duct stone, however his bilirubin had decreased. She recommended an ERCP given the risk of post ERCP pancreatitis. The patient had an MRI of the abdomen which showed gallstones without evidence of cholecystitis and normal bile ducts. Dr. Nick therefore planned a cholecystectomy and this was done on 12/03/2020. He tolerated the procedure well. By 12/04/2020 he was having no pain and tolerating a diet and Dr. Nick felt he could be discharged home. Of note, his final blood culture revealed E. coli. He had received 5 days of Invanz, therefore he was stable to be discharged home on Levaquin for 10 days. He will follow-up both with Dr. Nick and Dr. Marcum. Objective Vital signs: Temp Pulse Resp BP Pulse Ox 97.2 F L 51 L 17 150/77 H 96 12/04/20 12:19 12/04/20 12:19 12/04/20 07:40 12/04/20 12:19 12/04/20 08:00 Narrative: - Constitutional no acute distress - *Routine HEENT Exam Head: Present: normocephalic Eye: Present: EOMI, PERRL ENT: Present: mucous membranes moist - *Routine Neck Exam Present: supple. Absent: lymphadenopathy - *Routine Res
== END 2020-12-04 09:45 | disposition home or self-care (01) | DRG 854 ==
LOC: UTC 19:54 → ER 19:57 → 2ND 11-30 15:42
PROVIDERS: Surgery; Admitting Provider Family Medicine; Emergency Provider Emergency Medicine; PCP Family Medicine; Visit Provider Family Medicine
PROC: 0FT44ZZ Resection of Gallbladder, Percutaneous Endoscopic Approach (ICD-10-PCS; principal; 2020-12-03 11:00)
DX: A41.51 Sepsis due to Escherichia coli [E. coli] (principal); R17 Unspecified jaundice; R65.20 Severe sepsis without septic shock; E11.9 Type 2 diabetes mellitus without complications; K80.20 Calculus of gallbladder without cholecystitis without obstruction; Z95.1 Presence of aortocoronary bypass graft; Z20.822 Contact with and (suspected) exposure to COVID-19; Z79.01 Long term (current) use of anticoagulants; Z79.84 Long term (current) use of oral hypoglycemic drugs; E78.5 Hyperlipidemia, unspecified; I25.2 Old myocardial infarction; I10 Essential (primary) hypertension; E66.9 Obesity, unspecified; Z68.31 Body mass index [BMI] 31.0-31.9, adult; R79.89 Other specified abnormal findings of blood chemistry; I25.119 Atherosclerotic heart disease of native coronary artery with unspecified angina pectoris
CPT/HCPCS: 36415; 70450; 74177; 74181; 76376; 76705; 80053; 81001; 82150; 82962; 83605; 83690; 84145; 85007; 85025; 85651; 86140; 87040; 87077; 87186; 88304; 96365; 96366; 96375; 99285; J1335; J2405; Q9967; U0003

== ENCOUNTER → 2021-06-09 09:52 | Outpatient (CLI) | payer BC, MEDICARE, SELFPAY ==
--- NOTE | 2021-06-10 09:34 | PC.NURSE ---
informed patient that he is positive
== END ==
PROVIDERS: PCP Family Medicine; Visit Provider Nurse Practitioner
DX: U07.1 COVID-19 (principal)
CPT/HCPCS: C9803; U0003; U0005

== ENCOUNTER → 2021-06-13 07:48 | Outpatient (CLI) | payer BC, MEDICARE, SELFPAY ==
[2021-06-13] VITALS (9 sets, daily range): BP systolic 110–130; BP diastolic 62–77; PULSE 60–69; RESP 18; TEMP 36.6; O2SAT 94–96
== END | disposition home or self-care (01) ==
PROVIDERS: PCP Family Medicine; Visit Provider Family Medicine
DX: U07.1 COVID-19 (principal); Z23 Encounter for immunization
CPT/HCPCS: 96365

== ENCOUNTER 2022-08-04 03:02 | Emergency (ER) | payer OTHER, MEDICARE, SELFPAY ==
[2022-08-04] VITALS (11 sets, daily range): BP systolic 121–155; BP diastolic 64–98; PULSE 61–72; RESP 12–18; TEMP 36.6–36.9; O2SAT 94–99; BMI 30.8
--- NOTE | 2022-08-04 03:04 | CT_ITS ---
PROCEDURE INFORMATION: Exam: CT Head Without Contrast Exam date and time: 08/04/2022 3:10 AM Age: 71 years old Clinical indication: Stroke-like symptoms; Headache and speech disturbance; Additional info: Stroke like symptoms TECHNIQUE: Imaging protocol: Computed tomography of the head without contrast. Radiation optimization: All CT scans at this facility use at least one of these dose optimization techniques: automated exposure control; mA and/or kV adjustment per patient size (includes targeted exams where dose is matched to clinical indication); or iterative reconstruction. Other protocol: This patient has received 0 known CTs and 0 known cardiac nuclear medicine studies in the 12 months prior to the current study. Other technique: STROKE PROTOCOL was implemented. COMPARISON: CT HEAD/BRAIN WO CON 11/29/2020 9:00 PM FINDINGS: Brain: Asymmetric hypodensity visualized within the left side of the singh. Artifact limits evaluation of the singh, although infarct of indeterminate acuity is considered. Comparison to the prior study is limited by significant artifact on the prior images. No acute intracranial hemorrhage is visualized. The herndon-white differentiation is otherwise preserved. There are scattered foci of white matter hypodensity, likely representing small vessel ischemic disease. The acuity of the white matter disease is indeterminate. There is no midline shift. Cerebral ventricles: There is mild prominence of the ventricles and sulci, compatible with atrophy. Paranasal sinuses: Mucosal thickening/effusions within scattered ethmoid air cells. Mucosal thickening of the right sphenoid sinus and bilateral frontal sinuses. Mastoid air cells: No mastoid effusion. Bones/joints: The calvarium demonstrates no evidence for a depressed fracture. Soft tissues: Unremarkable. Vasculature: Intracranial atherosclerosis visualized. IMPRESSION: 1. Asymmetric hypodensity visualized within the left side of the singh. Artifact limits evaluation of the singh, although infarct of indeterminate acuity is considered. If further evaluation is clinically indicated, an MRI of the brain is recommended. 2. There are scattered foci of white matter hypodensity, likely representing small vessel ischemic disease. 3. Mild atrophy. 4. Paranasal sinus disease. ASSESSMENT: ASPECTS ([place] Stroke Program Early CT Score) is 10.
--- NOTE | 2022-08-04 03:08 | PC.NURSE ---
pt to CT
--- NOTE | 2022-08-04 03:12 | PC.NURSE ---
PT returned from CT
--- NOTE | 2022-08-04 03:14 | HMH.EDNEU ---
Discharge Plan Disposition Patient Disposition: Xfer Short-Term Hosp Chief Complaint: Neuro Symptoms/Deficit Prescriptions Prescriptions: No Action meloxicam 7.5 mg tablet 7.5 mg PO DAILY 30 Days Qty: 30 rivaroxaban 2.5 mg tablet 2.5 mg PO BID 30 Days Qty: 60 empagliflozin-metformin 12.5-1,000 mg tablet, IR - ER, biphasic 24hr 2 tab PO DAILY clindamycin HCl 300 mg capsule 300 mg PO TID 14 Days Qty: 42 0RF multivitamin with minerals 1 EACH tablet 1 each PO DAILY aspirin 81 MG tablet,delayed release (DR/EC) 81 mg PO DAILY tramadol 50 MG tablet 50 mg PO Q4HP PRN (Reason: Moderate To Severe Pain) Qty: 18 0RF atorvastatin 80 MG tablet 80 mg PO HS lisinopril 5 MG tablet 5 mg PO DAILY sitagliptin phosphate 100 MG tablet 100 mg PO DAILY bisoprolol fumarate 5 MG tablet 2.5 mg PO HS Qty: 0 0RF Clinical Impressions Clinical Impression: Acute CVA (cerebrovascular accident), DM2 (diabetes mellitus, type 2), CAD (coronary artery disease) Stand Alone Forms Stand Alone Forms: Transfer Record - ED Discharge ED Provider: Ofelia (ED)Carlitos Neuro HPI General Chief Complaint: Neuro Symptoms/Deficit Stated Complaint: Stroke Time Seen by Provider: 08/04/22 03:15 Mode of Arrival: Ambulatory Source of Information: Patient, Spouse and Medical Record Limitations: No Limitations History of Present Illness HPI Narrative: pt with mild maharaj earlier and was awaken at 0230 with sev maharaj assoc with change in speech and unsteady gait Onset (ago): hour(s) Timing confirmed by: spouse Location: speech and dysarthria History of same: No Severity: severe Context: sudden onset On Anticoagulants: Yes (last took wednesday at 9 pm ) Associated symptoms: nausea/vomiting Treatments Prior to Arrival: none Related Data Home Medications Medication Instructions Recorded Confirmed atorvastatin 80 mg tablet 80 mg PO HS Cholesterol 10/29/17 06/13/21 lisinopril 5 mg tablet 5 mg PO DAILY bp 10/29/17 06/13/21 sitagliptin phosphate 100 mg tablet 100 mg PO DAILY Diabetes 10/29/17 06/13/21 meloxicam 7.5 mg tablet 7.5 mg PO DAILY Pain 30 days #30 09/05/18 06/13/21 tabs rivaroxaban 2.5 mg tablet 2.5 mg PO BID Blood thinner 30 09/05/18 06/13/21 days #60 tabs empagliflozin 12.5 mg-metformin ER 2 tab PO DAILY Diabetes 07/31/19 06/13/21 1,000 mg tablet,extended rel 24 hr aspirin 81 mg tablet,delayed 81 mg PO DAILY CIRCULATION 11/30/20 06/13/21 release multivitamin with minerals 1 each PO DAILY Supplement 11/30/20 06/13/21 Previous Rx's Medication Instructions Recorded bisoprolol fumarate 5 mg tablet 2.5 mg PO HS bp ##0 12/04/17 tramadol 50 mg tablet 50 mg PO Q4HP PRN Moderate To 12/04/20 Severe Pain #18 tabs clindamycin HCl 300 mg capsule 300 mg PO TID infection 14 days 01/22/21 #42 caps Allergies Allergy/AdvReac Type Severity Reaction Status Date / Time No Known Allergies Allergy Verified 06/13/21 08:35 Stroke Alert/NIH Score LOC Stroke Alert: Yes Level of Consciousness: Alert LOC Questions: Answers both correctly LOC Commands: Obeys both correctly Facial/Visual Best Gaze: Normal Visual: No visual loss Facial Palsy: Normal Motor Motor Response, Left Arm: No drift/Amputation/Fused Motor Response, Right Arm: No drift/Amputation/Fused Motor Response, Left Leg: No drift/Amputation/Fused Motor Response, Right Leg: No drift/Amputation/Fused Sensory/Language Limb Ataxia: Absent Sensory: Normal Best Language: No aphasia Dysarthria: Normal speech, Intubated or Barrier present NIH Score Stroke Risk Score: 0 PFSH PFSH Disclaimer: The information contained in this section may have been updated after the patient was seen, as this information can be updated by other users. Social History Smoking Status: Never smoker alcohol intake: never substance use type: denies use current occupational status: retired Travel in the last 8 weeks: None
--- NOTE | 2022-08-04 03:23 | ECG_ITS ---
APPROVED REPORT Exam: Resting ECG HR:60 bpm ECG Measurements Heart Rate 60 AXES VT 255 P 63 QRSd 113 QRS 18 QT 437 T -17 QTc 439 Conclusion SINUS RHYTHM WITH FIRST DEGREE AV BLOCK LVH Old Inferior ID ABNORMAL ECG UNCONFIRMED REPORT Electronically signed by : Wicho Briseno MD 08/04/2022 06:59:53
[2022-08-04 03:25] LABS: Basophils # 0.1 K/mm3 (0-0.2); Basophils % 1.5 % (0.1-2.0); Eosinophils # 0.3 K/mm3 (0.0-0.4); Eosinophils % 2.8 % (0.1-12.0); Hematocrit 45.3 % (42.0-52.0); Hemoglobin 15.4 g/dL (14.1-18.0); Lymphocytes # 2.9 K/mm3 (0.7-4.5); Lymphocytes % 32.1 % (10-50); Mean Corpuscular HGB Conc 33.9 g/dL (31.8-35.4); Mean Corpuscular Hemoglobin 33.4 pg (27.0-31.2); Mean Corpuscular Volume 98.8 fl (80-94); Mean Platelet Volume 8.2 fl (7.4-10.4); Monocytes # 0.7 K/mm3 (0.1-1.0); Monocytes % 7.9 % (1.7-9.3); Neutrophils % 55.6 % (37.0-80.0); Platelet Count 205 K/mm3 (142-424); Red Blood Count 4.59 M/mm3 (4.60-6.20); Red Cell Distribution Width 13.8 % (11.5-17.5)
[2022-08-04 03:26] LABS: Alanine Aminotransferase 32 U/L (12-78); Albumin Level 4.3 g/dl (3.5-5.0); Alkaline Phosphatase 84 U/L (38-126); Anion Gap 5.1 mEq/L (5-15); Aspartate Amino Transferase 33 U/L (17-59); Bilirubin,Total 0.8 mg/dl (0.2-1.3); Blood Urea Nitrogen 13 mg/dl (9-20); Calcium 8.9 mg/dl (8.4-10.2); Carbon Dioxide 31 mmol/L (22.0-30.0); Chloride 104 mmol/L (98-107); Creatinine Clearance Estimated 104 mL/min (50-200); Estimated Glomerular Filt Rate 74 ml/min (>60); GFR (African American) 89 ML/MIN (>60); Glucose 246 mg/dl (74-100); Potassium 4.1 mmoL/L (3.5-5.1); Sodium 136 mmol/L (136-145); Total Protein,Serum 7.2 g/dl (6.3-8.2)
--- NOTE | 2022-08-04 03:28 | PC.NURSE ---
speaking with MAYRA
--- NOTE | 2022-08-04 03:32 | PC.NURSE ---
MD at bedside discussing results with and pt
[2022-08-04 03:33] LABS: INR 0.91 (0.9-1.1); Prothrombin Time 9.9 seconds (10.1-12.5)
[2022-08-04 03:35] LABS: Bilirubin,Direct 0.4 mg/dl (0.0-0.4); Bilirubin,Indirect 0.4 mg/dL (0.0-0.9); Bilirubin,Unconjugated 0.5 mg/dL (0.0-1.1)
--- NOTE | 2022-08-04 03:43 | PC.NURSE ---
Hermes calling [facility] at this time
--- NOTE | 2022-08-04 03:45 | PC.NURSE ---
speaking with Jonna stroke registration coordinator
--- NOTE | 2022-08-04 03:56 | PC.NURSE ---
Dr. Gilbert at bedside
--- NOTE | 2022-08-04 04:24 | PC.NURSE ---
pt resting comfortably in bed. and pt agree pt is back to baseline. No new needs at this time
--- NOTE | 2022-08-04 04:39 | PC.NURSE ---
Rounded on patient, no needs voiced at this time.
--- NOTE | 2022-08-04 04:47 | PC.NURSE ---
Marcelle from [facility] at [facility] [place] called for report. Advises pt will be going to [facility]. Notified Sheyla of transfer
[2022-08-04 04:49] LABS: Coronavirus 19, PCR Not Detected (NotDetected); Influenza A, PCR Not Detected (NotDetected); Influenza B, PCR Not Detected (NotDetected)
== END 2022-08-04 06:11 | disposition short-term general hospital (02) ==
PROVIDERS: Emergency Provider Emergency Medicine; PCP Family Medicine
DX: I63.9 Cerebral infarction, unspecified (principal); E11.9 Type 2 diabetes mellitus without complications; I25.10 Atherosclerotic heart disease of native coronary artery without angina pectoris
CPT/HCPCS: 70450; 80048; 80076; 85025; 85610; 93005; 96374; 99285; C9803; J2405; U0003; U0005

== ENCOUNTER → 2022-10-23 10:53 | Outpatient (CLI) | payer OTHER, MEDICARE, SELFPAY ==
--- NOTE | 2022-10-23 10:57 | XR_ITS ---
FINAL REPORT CLINICAL HISTORY: Pt has loss in ROM in his Lt shoulder w pain x 2 mos, NKT. Hx old clavicular fx FINDINGS: Left shoulder THREE VIEW FINDINGS: Three views show no evidence of an acute, displaced fracture or dislocation of the visualized bony architecture. Mild acromioclavicular degenerative joint disease is present. Glenohumeral joint is unremarkable. IMPRESSION: Degenerative changes. No acute bony abnormality . Authenticated and ERN
== END ==
PROVIDERS: PCP Family Medicine; Visit Provider Family Medicine
DX: M25.512 Pain in left shoulder (principal)
CPT/HCPCS: 73030

== ENCOUNTER → 2022-11-03 12:34 | Outpatient (CLI) | payer OTHER, MEDICARE, SELFPAY | PROVIDERS: PCP Family Medicine; Visit Provider Family Medicine | DX: G47.33 Obstructive sleep apnea (adult) (pediatric) (principal) | CPT/HCPCS: G0399 ==

== ENCOUNTER → 2023-06-01 23:55 | Outpatient (CLI) | payer OTHER, MEDICARE, SELFPAY ==
[2023-06-01 18:27] LABS: Basophils % 0.6 % (0.1-2.0); Eosinophils # 0.1 K/mm3 (0.0-0.4); Eosinophils % 1.7 % (0.1-12.0); Hematocrit 45.3 % (42.0-52.0); Hemoglobin 15.6 g/dL (14.1-18.0); Lymphocytes # 1.9 K/mm3 (0.7-4.5); Mean Corpuscular HGB Conc 34.4 g/dL (31.8-35.4); Mean Corpuscular Hemoglobin 34.1 pg (27.0-31.2); Mean Corpuscular Volume 99.4 fl (80-94); Monocytes # 0.5 K/mm3 (0.1-1.0); Monocytes % 6.4 % (1.7-9.3); Neutrophils % 66.4 % (37.0-80.0); Platelet Count 203 K/mm3 (142-424); Red Blood Count 4.56 M/mm3 (4.60-6.20); Red Cell Distribution Width 13.3 % (11.5-17.5); White Blood Count 7.5 K/mm3 (4.8-10.8)
[2023-06-01 18:34] LABS: Albumin Level 4.5 g/dl (3.5-5.0); Albumin/Globulin Ratio 1.5 (1.1-1.8); Alkaline Phosphatase 109 U/L (38-126); Anion Gap 11.7 mEq/L (5-15); Bilirubin,Total 0.9 mg/dl (0.2-1.3); Carbon Dioxide 28 mmol/L (22.0-30.0); Chloride 101 mmol/L (98-107); HDL Cholesterol 63 mg/dl (40-60); Potassium 4.7 mmoL/L (3.5-5.1); Sodium 136 mmol/L (136-145); Total Protein,Serum 7.5 g/dl (6.3-8.2)
[2023-06-01 18:36] LABS: Chol/HDL Ratio 2.6 (1-3.5); Cholesterol 163 mg/dl (140-200); Triglycerides 207 mg/dl (30-150); VLDL Cholesterol 41 mg/dL (0-40)
[2023-06-01 18:45] LABS: Direct LDL Cholesterol 73.44 mg/dL (100-129)
[2023-06-01 18:49] LABS: 25-OH Vitamin D, Total 46.5 ng/mL (30-100)
[2023-06-01 19:04] LABS: Prostate Specific Ag Screen 0.5 ng/ml (0.0-4.0)
[2023-06-01 19:07] LABS: Thyroid Stimulating Hormone 0.93 uIU/mL (0.465-4.68)
[2023-06-01 19:26] LABS: Vitamin B12 488 pg/mL (239-931)
[2023-06-01 20:02] LABS: Alanine Aminotransferase 31 U/L (12-78); Aspartate Amino Transferase 37 U/L (17-59); Blood Urea Nitrogen 15 mg/dl (9-20); Estimated Glomerular Filt Rate 66 ml/min (>60); GFR (African American) 80 ML/MIN (>60)
[2023-06-01 20:03] LABS: Calcium 9.2 mg/dl (8.4-10.2); Glucose 280 mg/dl (74-100)
== END ==
PROVIDERS: PCP Internal Medicine; Visit Provider Internal Medicine
DX: E11.9 Type 2 diabetes mellitus without complications (principal); E78.5 Hyperlipidemia, unspecified; Z12.5 Encounter for screening for malignant neoplasm of prostate; E66.9 Obesity, unspecified; Z68.30 Body mass index [BMI] 30.0-30.9, adult
CPT/HCPCS: 80053; 80061; 82306; 82607; 84443; 85025; G0103

== ENCOUNTER 2023-09-08 14:21 | Outpatient (CLI) | payer MEDICARE, OTHER, SELFPAY ==
--- NOTE | 2023-09-08 14:26 | XR_ITS ---
FINAL REPORT CLINICAL HISTORY: RT SHOULDER PAIN FINDINGS: Right shoulder Four views were obtained. There is no acute fracture or dislocation. There are mild hypertrophic changes of the AC joint. The glenohumeral joint is intact. No soft tissue abnormality is identified. IMPRESSION: Mild hypertrophic changes of the AC joint. Reviewed, Interpreted and Dictated by Harmeet Modi MD Transcribed by Meaghan Atkins Authenticated and [facility]
== END 2023-09-08 23:59 ==
LOC: RAD 14:23
PROVIDERS: PCP Family Medicine; Visit Provider Family Medicine
DX: M25.511 Pain in right shoulder (principal)
CPT/HCPCS: 73030

== ENCOUNTER 2024-03-02 09:25 | Outpatient (CLI) | payer OTHER, MEDICARE, SELFPAY ==
--- NOTE | 2024-03-02 09:37 | CA_ITS ---
APPROVED REPORT EXAM: Comprehensive 2D, Doppler, and color-flow Echocardiogram Armament Mechanic: Lizzie Cain CRT Ht: 6 ft 2 in Wt: 231lbs BSA: 2.31 BP: 151/77 mmHg Indications: Abnormal ECG, Diabetes, Dyspnea, Fatigue, CAD, Hyperlipidemia, Hypertension/HDD, CABG X 5, EF 45% 11-30-17 ECHO 2D Dimensions Left Atrium 3.95 cm LVEF (Alvarado's) 46.50 % LVOT 2.00 cm (M/F) 1.5-2.5 LV Volume 133.00 mL LA Volume 84.70 mL LA Volume Index 36.70 mL/m2 (M/F) 16-34 EF AP4 48.70 % EF AP2 47.1 % EF BP 46.5 % GL Strain -18.3 % M-Mode Dimensions Ao Diam 4.74 cm (2.0-3.7) TAPSE 1.09 (<1.7) LV Diastology E Decel Time 264 (160-240 msec) E/A Ratio 0.59 MED E' 7.9 (>= 7 cm/sec) MED A' 9.40 cm/s E'/MED E' Ratio 8.96 (<= 14) LAT E' 8.1 (>= 10 cm/sec) LAT A' 10.70 cm/s E/LAT E' Ratio 8.74 (<= 14) Aortic Valve AoV Peak Oskar. 135.0 (50-130 cm/s) AO Peak GR. 7.40 mmHg Mitral Valve MV E Max Oskar. 71.0 (40-130 cm/s) MV A Velocity 121.0 (40-130 cm/s) E/A Ratio 0.59 MV Decel. Time 264 (160-240 ms) Tricuspid Valve TR P. Velocity 234.00 cm/s RAP Estimate 10.00 mmHg RVSP 31.90 mmHg Left Ventricle The left ventricle is normal size. Left ventricular systolic function is mildly decreased. There is increased LV wall thickness. There is mild global hypokinesis present. The septum is asynchronous. LVEF is 45%. Diastolic function is indeterminate. Right Ventricle The right ventricle is normal size. The right ventricular systolic function is normal. Atria Left atrium is mildly dilated. Right atrium is mildly dilated. There is no Doppler evidence of interatrial shunt. Aortic Valve Aortic valve is mildly thickened. There is no aortic valvular stenosis. Trace aortic regurgitation. Mitral Valve The mitral valve leaflets are mildly thickened. No evidence of mitral valve stenosis. Trace mitral regurgitation. Tricuspid Valve The tricuspid valve leaflets are thin and pliable. Mild tricuspid regurgitation. RVSP is 20-25 mmHg. Pulmonic Valve The pulmonary valve is normal in structure. Trace pulmonic regurgitation. Great Vessels The aortic root is normal in size. The ascending aorta is mildly dilated, measuring 4.3 cm in diameter. IVC is normal in size and collapses >50% with inspiration. Pericardium There is no pericardial effusion. Other Information Study Quality: Fair Conclusion Mild reduction in LV systolic function (LVEF 45%). Mild biatrial dilation. Mild TR. Mildly dilated ascending aorta, measuring 4.3 cm in diameter. Correlation with recent or new CTA chest is suggested. Electronically signed by : Sue Lorenzo MD 03/05/2024 01:25:37
== END 2024-03-02 23:59 | disposition home or self-care (01) ==
PROVIDERS: PCP Family Medicine; Visit Provider Nurse Practitioner Family
DX: R06.09 Other forms of dyspnea (principal); R94.31 Abnormal electrocardiogram [ECG] [EKG]; I10 Essential (primary) hypertension; I25.708 Atherosclerosis of coronary artery bypass graft(s), unspecified, with other forms of angina pectoris; R53.83 Other fatigue
CPT/HCPCS: 93306

== ENCOUNTER 2024-03-06 11:53 | Outpatient (CLI) | payer OTHER, MEDICARE, SELFPAY ==
--- NOTE | 2024-03-06 11:58 | CA_ITS ---
APPROVED REPORT Exam: Exercise Treadmill Technologist: Erum Green Ht: 6 ft 2 in Wt: 231 lbs BSA: 2.31 m2 HR: 61 bpm BP: 153/81 mmHg Indications: Dyspnea Medical History Medications: Lisinopril,,,,, Aspirin,,,,, Gabapentin,,,,, Atorvastatin,,,,, MeLOXICAM,,,,, Januvia,,,,, Tradjenta,,,,, SilDENAFIL,,,,, Multivitamin,,,,, RIvaROXABAN,,,,, EMpagliflozin-Metformin,,,,, Stress Test Details Test: Omi HR Resting HR: 77 bpm Max Heart Rate (APMHR): 147 bpm Max HR Achieved: 149 bpm Target HR (85% APMHR): 125 bpm % of APMHR: 101 Recovery HR: 86 bpm HR response to stress: Normal HR response to stress BP Resting BP: 153.0/81.0 mmHg Max BP: 182.0/92.0 mmHg Recovery BP: 172.0/65.0 mmHg BP response to stress: Normal blood pressure response to stress. ECG Resting ECG: NSR, LVH Stress EC.[address] depression Arrhythmia: PVCs Recovery ECG: Return to baseline within 3 minutes of recovery Recovery Arrhythmia: None Clinical Exercise duration: 06:00 min Highest Stage Achieved: Exercise capacity: 7.0 METs Overall Exercise Capacity for Age: Average Stress ECG Conclusion The patient was able to exercise for a total of 6 minutes, 0 seconds. He achieved a total of 7.0 METS. He has average exercise capacity compared to age and sex matched peers. He has normal HR and BP response to exercise. Symptoms: Fatigue. No chest pain, shortness of air. Arrhythmias/Ectopy: Frequent PVC ST changes:0.[address] depression. Conclusion: Average exercise capacity. Nondiagnostic ECG due to baseline abnormalities. Myoview images reported separately. Test Summary REST . . . . . . . Sitting REST . . . . . . . Standing REST 08:01 0.0 0.0 77 . 153/ 81 . . Stage 1 01:00 10.0 1.7 95 . . . . Stage 1 02:00 10.0 1.7 108 . . . . Stage 1 03:00 10.0 1.7 112 . 160/ 84 . . Stage 2 01:00 12.0 2.5 127 . . . . Stage 2 . . . . . . . Myoview Injected Stage 2 02:00 12.0 2.5 138 . . . . Stage 2 03:00 12.0 2.5 146 . 164/ 84 . Stop exercise at 06:00 RECOVERY 01:00 0.0 0.0 128 . 182/ 92 . . RECOVERY 02:00 0.0 0.0 97 . 182/ 92 . . RECOVERY 03:00 0.0 0.0 84 . 182/ 90 . . RECOVERY 04:00 0.0 0.0 86 . 172/ 85 . . Electronically signed by : Sue Lorenzo MD 03/07/2024 00:48:51
--- NOTE | 2024-03-06 11:58 | NM_ITS ---
APPROVED REPORT Exam: Nuclear Stress Test Indication: soa..fatigue Patient Location: Outpatient Stress Tech: Erum Green HI Tech:Aurora Leija, AALIYAHT, RT (R)(N) Ht: 6 ft 2 in Wt: 233 lbs HR: 77 bpm BP: 153/81 mmHg BSA: 2.32 m2 Rhythm: NSR TID: 0.98 BMI: 29.9 History: soa..fatigue Procedure: Patient exercised on Omi protocol 6 minutes and sec, resting heart rate 77 bpm, resting blood pressure 153/81 mmHg, with exercise maximum heart rate achived was 149 bpm which is 101 % of the maximum predicted heart rate and blood pressure was 182/92 mmHg. Test was stopped due to fatigue. Patient denied any complaint of chest pain. Patient has Average exercise capacity, achieved 7.0 METs of workload on treadmill, the blood pressure response to exercise was Normal. Cardiac Stress and Resting SPECT Images: Cardiac Stress and Resting SPECT images were obtained using technetium 99m Myoview 30.3 mCi stress and 10.16 mCi at rest. Resting and stress imaging in supine and prone positions demonstrate a large sized, moderate, predominantly reversible perfusion defect in the basal to mid inferior, inferoseptal, and lateral LV castillo. Gated imaging demonstrates moderate reduction in global LV systolic function. There is severe hypokinesis of the basal inferior and lateral LV castillo. LVEF is calculated at 37%. Conclusion: Large sized, moderate, predominantly reversible perfusion defect in the basal to mid inferior, inferoseptal, and lateral LV castillo. Findings are suggestive of reversible ischemia. Gated imaging demonstrates moderate reduction in global LV systolic function. There is severe hypokinesis of the basal inferior and lateral LV castillo. LVEF is calculated at 37%. Electronically signed by : Sue Lorenzo MD 03/07/2024 00:50:43
[2024-03-06] MEDS: SODIUM CHLORIDE 0.9% 10ML SYR (RAD ONLY) 10 ML IV ×2 (14:07→14:08)
[2024-03-06] MEDS: ISOTOPE MYOVIEW (PER STUDY) 1 DOSE IV (14:07)
== END 2024-03-06 23:59 | disposition home or self-care (01) ==
LOC: RAD 11:54
PROVIDERS: PCP Family Medicine; Visit Provider Nurse Practitioner Family
DX: R06.09 Other forms of dyspnea (principal); R94.31 Abnormal electrocardiogram [ECG] [EKG]; R53.83 Other fatigue; I25.708 Atherosclerosis of coronary artery bypass graft(s), unspecified, with other forms of angina pectoris; I10 Essential (primary) hypertension; E78.5 Hyperlipidemia, unspecified
CPT/HCPCS: 78452; 93017; 93018; A9502

== ENCOUNTER 2024-03-31 10:35 | Outpatient (CLI) | payer OTHER, MEDICARE, SELFPAY ==
--- NOTE | 2024-03-31 10:40 | CT_ITS ---
PROCEDURE INFORMATION: Exam: CTA Chest With Contrast Exam date and time: 03/31/2024 10:55 AM Age: 73 years old Clinical indication: Cardiovascular condition or disease; Aortic aneurysm; Without rupture; Thoracic; Additional info: Dilated ascending aorta measuring 4.3 cm TECHNIQUE: Imaging protocol: Computed tomographic angiography of the chest with contrast. Exam focused on the arteries. 3D rendering (Not supervised by radiologist): MIP and/or 3D reconstructed images were created by the technologist. Radiation optimization: All CT scans at this facility use at least one of these dose optimization techniques: automated exposure control; mA and/or kV adjustment per patient size (includes targeted exams where dose is matched to clinical indication); or iterative reconstruction. Contrast material: ISOVUE 370; Contrast volume: 100 ml; Contrast route: INTRAVENOUS (IV); COMPARISON: CR XR CHEST 2V 05/23/2020 2:45 AM FINDINGS: Pulmonary arteries: No evidence of pulmonary embolus to the segmental level. Aorta: The ascending aorta is oblique and difficult to measure. 5.3 x 4.2 cm (series 3, image 32) findings consistent with unruptured aneurysm. Additional measurement 4.1 cm on series 3, image 36 . No dissection of the aorta. Lungs: Unremarkable. No consolidation. No masses. Pleural spaces: Unremarkable. No pneumothorax. No pleural effusion. Heart: Unremarkable. No cardiomegaly. No pericardial effusion. Lymph nodes: Unremarkable. No enlarged lymph nodes. Bones/joints: Median sternotomy Soft tissues: Unremarkable. IMPRESSION: 1. No evidence of pulmonary embolus to the segmental level. 2. The ascending aorta is oblique and difficult to measure. 5.3 x 4.2 cm (series 3, image 32) findings consistent with unruptured aneurysm. Additional measurement 4.1 cm on series 3, image 36 . 3. No dissection of the aorta.
[2024-03-31] MEDS: IOPAMIDOL-370 (76%);100ML BOTTLE 100 ML IV (11:09)
[2024-03-31] MEDS: SODIUM CHLORIDE 0.9% 10ML SYR (RAD ONLY) 10 ML IV (11:09)
[2024-03-31] MEDS: 0.9 % SODIUM CHLORIDE 50 ML VIAL IV (11:09)
== END 2024-03-31 23:59 | disposition home or self-care (01) ==
LOC: RAD 10:36
PROVIDERS: PCP Family Medicine; Visit Provider Nurse Practitioner Family
DX: I25.118 Atherosclerotic heart disease of native coronary artery with other forms of angina pectoris (principal); R94.39 Abnormal result of other cardiovascular function study
CPT/HCPCS: 71275; Q9967

== ENCOUNTER 2024-04-28 08:22 | Day surgery (SDC) | payer OTHER, MEDICARE, SELFPAY ==
[2024-04-28] VITALS (18 sets, daily range): BP systolic 112–162; BP diastolic 56–86; PULSE 52–84; RESP 18–20; O2SAT 95–99; BMI 30.2
--- NOTE | 2024-04-28 07:26 | IR_ITS ---
APPROVED REPORT Patient Location: Outpatient PROCEDURES Left heart catheterization Left ventriculogram Selective coronary angiogram Left internal mammary angiography Selective engagement of the saphenous vein graft to the circumflex artery Selective engagement of the saphenous vein graft to the right coronary INDICATION Coronary artery disease, Angina pectoris, History of coronary bypass surgery, Abnormal Myoview Informed consent was obtained prior to the procedure. COMPLICATIONS NONE Estimated Blood Loss: LESS THAN 10 ML TECHNIQUE One percent lidocaine used to anesthetize the right groin. The right femoral artery was accessed via the Seldinger technique and a 5 Ukrainian sheath was placed in the right femoral artery. A JL 4, JR4 catheter were used to perform left heart catheterization, left ventriculogram selective coronary angiography as well as selective engagement of the 2 vein grafts and the left internal mammary artery. At the end of the procedure the patient was transferred to the postop holding area in stable condition for sheath removal. ANGIOGRAPHIC RESULTS The left main artery Distally subtotally occluded The right coronary artery Is subtotally occluded The JUNIOR ventriculogram reveals Reduced at 45 to 50% The left ventricular end-diastolic pressure 10 mmHg PAUL graft is widely patent to a small first diagonal artery and then skips to a small caliber LAD Saphenous vein graft to a small first obtuse marginal artery is widely patent. The small obtuse marginal artery then backfills a small second obtuse marginal artery Saphenous vein graft to right coronary artery is a skip graft. It makes an anastomosis onto what looks like a proximal posterior lateral branch and then skips to the posterior descending artery. Both limbs are widely patent IMPRESSION Adequate surgical revascularization as described above Patent PAUL to first diagonal artery and LAD however both diagonal and LAD are small caliber vessels with no focal disease Slightly reduced ejection fraction with normal LVEDP PLAN 1. Patient is not on any antianginal medications. Recommend maximizing antianginal medications 2. Risk factor modification Electronically signed by : Syed Bryan MD 04/28/2024 10:25:12
[2024-04-28 08:55] LABS: Basophils # 0.1 K/mm3 (0-0.2); Basophils % 1.1 % (0.1-2.0); Eosinophils # 0.2 K/mm3 (0.0-0.4); Eosinophils % 2.3 % (0.1-12.0); Hematocrit 44.8 % (42.0-52.0); Hemoglobin 15.5 g/dL (14.1-18.0); Lymphocytes # 1.9 K/mm3 (0.7-4.5); Lymphocytes % 27.4 % (10-50); Mean Corpuscular HGB Conc 34.6 g/dL (31.8-35.4); Mean Corpuscular Hemoglobin 33.8 pg (27.0-31.2); Mean Corpuscular Volume 97.7 fl (80-94); Mean Platelet Volume 8.1 fl (7.4-10.4); Monocytes # 0.5 K/mm3 (0.1-1.0); Monocytes % 6.9 % (1.7-9.3); Neutrophils # 4.3 K/mm3 (1.8-7.8); Neutrophils % 62.4 % (37.0-80.0); Platelet Count 183 K/mm3 (142-424); Red Blood Count 4.58 M/mm3 (4.60-6.20); Red Cell Distribution Width 13.9 % (11.5-17.5); White Blood Count 6.9 K/mm3 (4.8-10.8)
[2024-04-28 08:59] LABS: Chloride 104 mmol/L (98-107); Potassium 4.2 mmoL/L (3.5-5.1); Sodium 141 mmol/L (136-145)
[2024-04-28 09:02] LABS: Anion Gap 12.2 mEq/L (5-15); Blood Urea Nitrogen 11 mg/dl (9-20); Calcium 9.1 mg/dl (8.4-10.2); Carbon Dioxide 29 mmol/L (22.0-30.0); Creatinine Clearance Estimated 99 mL/min (50-200); Estimated Glomerular Filt Rate 95 ml/min (>60); GFR (African American) 115 ML/MIN (>60); Glucose 163 mg/dl (74-100)
[2024-04-28] MEDS: 0.9 % SODIUM CHLORIDE 500 ML 25 ML IV (10:02)
[2024-04-28] MEDS: diphenhydrAMINE 50MG/ML VIAL 50 MG IV (10:02)
[2024-04-28] MEDS: MIDAZOLAM HCL 1MG/ML 5ML VIAL 1 MG IV (10:02)
[2024-04-28] MEDS: HEPARIN 1,000 UNITS/500ML NS (CATH LAB) 3000 UNIT IV (10:02)
[2024-04-28] MEDS: LIDOCAINE 1% 10ML MDV 20 ML IJ (10:03)
[2024-04-28] MEDS: FENTANYL 100MCG/2ML VIAL 50 MCG IV (10:03)
[2024-04-28] MEDS: IOPAMIDOL-370 (76%);100ML BOTTLE 60 ML IV (12:21)
== END 2024-04-28 14:06 | disposition home or self-care (01) ==
PROVIDERS: PCP Family Medicine; Visit Provider Internal Medicine
DX: I25.118 Atherosclerotic heart disease of native coronary artery with other forms of angina pectoris (principal); R94.39 Abnormal result of other cardiovascular function study; Z95.1 Presence of aortocoronary bypass graft; I77.1 Stricture of artery; I11.0 Hypertensive heart disease with heart failure; I50.20 Unspecified systolic (congestive) heart failure; Z79.01 Long term (current) use of anticoagulants; Z79.899 Other long term (current) drug therapy; E11.49 Type 2 diabetes mellitus with other diabetic neurological complication; I42.8 Other cardiomyopathies; Z79.84 Long term (current) use of oral hypoglycemic drugs
CPT/HCPCS: 80048; 85025; 93459; 99152; C1725; C1769; C1894; J1200; J1644; J2250; J3010; Q9967

== ENCOUNTER 2024-08-09 11:30 | Outpatient (CLI) | payer OTHER, MEDICARE, SELFPAY ==
[2024-08-09 18:36] LABS: Basophils # 0.1 K/mm3 (0-0.2); Basophils % 1.3 % (0.1-2.0); Eosinophils # 0.2 K/mm3 (0.0-0.4); Hematocrit 45.4 % (42.0-52.0); Hemoglobin 15.4 g/dL (14.1-18.0); Lymphocytes # 1.9 K/mm3 (0.7-4.5); Lymphocytes % 24.4 % (10-50); Mean Corpuscular HGB Conc 33.9 g/dL (31.8-35.4); Mean Corpuscular Hemoglobin 33.6 pg (27.0-31.2); Mean Corpuscular Volume 99.1 fl (80-94); Mean Platelet Volume 10.9 fl (7.4-10.4); Monocytes # 0.7 K/mm3 (0.1-1.0); Monocytes % 9.2 % (1.7-9.3); Neutrophils # 4.8 K/mm3 (1.8-7.8); Neutrophils % 62.8 % (37.0-80.0); Platelet Count 210 K/mm3 (142-424); Red Blood Count 4.58 M/mm3 (4.60-6.20); Red Cell Distribution Width 13.4 % (11.5-17.5); White Blood Count 7.6 K/mm3 (4.8-10.8)
[2024-08-09 20:04] LABS: Alanine Aminotransferase 31 U/L (12-78); Albumin Level 4.4 g/dl (3.5-5.0); Albumin/Globulin Ratio 1.8 (1.1-1.8); Alkaline Phosphatase 102 U/L (38-126); Anion Gap 13.4 mEq/L (5-15); Aspartate Amino Transferase 28 U/L (17-59); Bilirubin,Total 1.2 mg/dl (0.2-1.3); Blood Urea Nitrogen 12 mg/dl (9-20); Calcium 9.3 mg/dl (8.4-10.2); Carbon Dioxide 24 mmol/L (22.0-30.0); Chloride 104 mmol/L (98-107); Chol/HDL Ratio 2.7 (1-3.5); Cholesterol 172 mg/dl (140-200); Estimated Glomerular Filt Rate 95 ml/min (>60); GFR (African American) 115 ML/MIN (>60); Globulin 2.5 g/dL (1.3-3.2); Glucose 213 mg/dl (74-100); HDL Cholesterol 63 mg/dl (40-60); Potassium 4.4 mmoL/L (3.5-5.1); Sodium 137 mmol/L (136-145); Total Protein,Serum 6.9 g/dl (6.3-8.2); Triglycerides 79 mg/dl (30-150); VLDL Cholesterol 16 mg/dL (0-40)
[2024-08-09 20:14] LABS: Direct LDL Cholesterol 77.14 mg/dL (100-129)
[2024-08-09 20:30] LABS: Thyroid Stimulating Hormone 0.69 uIU/mL (0.465-4.68)
[2024-08-09 20:49] LABS: Vitamin B12 547 pg/mL (239-931)
[2024-08-09 21:05] LABS: HIV Combo NEGATIVE (Negative)
[2024-08-09 21:19] LABS: Hepatitis C Ab Qual. W/ RFX NEGATIVE (Negative)
== END 2024-08-09 23:59 | disposition home or self-care (01) ==
LOC: LAB.DROPOF 08-10 15:24
PROVIDERS: PCP Family Medicine; Visit Provider Family Medicine
DX: E11.9 Type 2 diabetes mellitus without complications (principal); Z76.89 Persons encountering health services in other specified circumstances
CPT/HCPCS: 80053; 80061; 82607; 84443; 85025; 86803; 87389

== ENCOUNTER 2024-08-14 10:26 | Outpatient (CLI) | payer OTHER, MEDICARE, SELFPAY ==
--- NOTE | 2024-08-14 10:29 | US_ITS ---
FINAL REPORT CLINICAL HISTORY: DM,DECREASED PULSES,CAD,CABG,CLAUDICATION,HTN,HLD FINDINGS: LOWER EXTREMITY SEGMENTAL PRESSURE MEASUREMENTS FINDINGS: Pressure indices are as follows: RIGHT LOWER EXTREMITY: Thigh: 1.13 Calf: 1.21 Ankle, posterior tibial artery: 1.06 Ankle, dorsalis pedis: 0.86 Toe: 0.77 DIPTI: 1.06 Comments: Normal LEFT LOWER EXTREMITY: Thigh: 1.00 Calf: 1.06 Ankle, posterior tibial artery: 1.09 Ankle, dorsalis pedis: 1.08 Toe: 0.85 DIPTI: 1.09 Comments: Normal IMPRESSION: No evidence of significant peripheral vascular disease. Reviewed, Interpreted and Dictated by Kamille Castañeda MD Transcribed by Marcelle Hawkins Authenticated and [facility]
== END 2024-08-14 23:59 | disposition home or self-care (01) ==
LOC: RT 10:27
PROVIDERS: PCP Family Medicine; Visit Provider Family Medicine
DX: I73.9 Peripheral vascular disease, unspecified (principal)
CPT/HCPCS: 93923

== ENCOUNTER 2024-10-30 10:00 | Outpatient (CLI) | payer OTHER, MEDICARE, SELFPAY ==
[2024-10-30 18:52] LABS: Basophils # 0.1 K/mm3 (0-0.2); Basophils % 1.3 % (0.1-2.0); Eosinophils # 0.2 Kmm3 (0.0-0.4); Eosinophils % 3.3 % (0.1-12.0); Hematocrit 44.4 % (42.0-52.0); Hemoglobin 14.7 g/dL (14.1-18.0); Immature Granulocytes # 0.02 10^3uL; Immature Granulocytes % 0.3 %; Lymphocytes # 1.7 K/mm3 (0.7-4.5); Lymphocytes % 24.1 % (10-50); Mean Corpuscular HGB Conc 33.1 g/dL (31.8-35.4); Mean Corpuscular Hemoglobin 33.7 pg (27.0-31.2); Mean Corpuscular Volume 101.8 fl (80-94); Mean Platelet Volume 10.9 fl (7.4-10.4); Monocytes # 0.7 K/mm3 (0.1-1.0); Monocytes % 9.5 % (1.7-9.3); Neutrophils # 4.3 K/mm3 (1.8-7.8); Neutrophils % 61.5 % (37.0-80.0); Nucleated Red Blood Cells # 0 10^3/uL; Nucleated Red Blood Cells % 0 %; Platelet Count 200 K/mm3 (142-424); Red Blood Count 4.36 M/mm3 (4.60-6.20); Red Cell Distribution Width 13.4 % (11.5-17.5); Red Cell Distribution Width-SD 50.1 fL
[2024-10-30 20:38] LABS: Alanine Aminotransferase 25 U/L (12-78); Albumin Level 4.2 g/dl (3.5-5.0); Albumin/Globulin Ratio 1.7 (1.1-1.8); Alkaline Phosphatase 89 U/L (38-126); Anion Gap 10.2 mEq/L (5-15); Aspartate Amino Transferase 28 U/L (17-59); Bilirubin,Total 1.2 mg/dl (0.2-1.3); Blood Urea Nitrogen 12 mg/dl (9-20); Calcium 8.9 mg/dl (8.4-10.2); Carbon Dioxide 28 mmol/L (22.0-30.0); Chloride 103 mmol/L (98-107); Chol/HDL Ratio 2.3 (1-3.5); Cholesterol 123 mg/dl (140-200); Estimated Glomerular Filt Rate 82 ml/min (>60); GFR (African American) 100 ML/MIN (>60); Globulin 2.5 g/dL (1.3-3.2); Glucose 167 mg/dl (74-100); HDL Cholesterol 54 mg/dl (40-60); Potassium 4.2 mmoL/L (3.5-5.1); Sodium 137 mmol/L (136-145); Total Protein,Serum 6.7 g/dl (6.3-8.2); Triglycerides 75 mg/dl (30-150); VLDL Cholesterol 15 mg/dL (0-40)
[2024-10-30 20:56] LABS: Hemoglobin A1C 7.3 % (4.0-6.0)
[2024-10-30 21:14] LABS: Prostate Specific Ag Screen 0.5 ng/ml (0.0-4.0)
== END 2024-10-30 23:59 | disposition home or self-care (01) ==
LOC: LAB.DROPOF 20:34
PROVIDERS: PCP Family Medicine; Visit Provider Family Medicine
DX: Z12.5 Encounter for screening for malignant neoplasm of prostate (principal); E11.42 Type 2 diabetes mellitus with diabetic polyneuropathy; I10 Essential (primary) hypertension; E78.5 Hyperlipidemia, unspecified; M54.2 Cervicalgia
CPT/HCPCS: 80053; 80061; 83036; 85025; G0103

== ENCOUNTER 2025-01-18 12:07 | Outpatient (CLI) | payer OTHER, MEDICARE, SELFPAY ==
--- OUTSIDE RECORDS SUMMARY | 2024-11-29 09:37 | XMS_ITS | Encounter Summary ---
Author Organization [facility] Address [address] [place] [address] Care Team Providers Care Agricultural Economics Professor Name Role Phone Jorge Marcum MD Primary Care Provider [phone] Syed Bryan MD Unavailable [phone] Shelli Venegas Unavailable Da Lorenzo MD Unavailable [phone] Reason for Referral * Imaging (Routine) - Closed Specialty Diagnoses / Procedures Referred By Debbie t Referred To Contact Radiology Diagnoses Aneurysm of ascending aorta without rupture (CMS/HCC) Procedures CT Angio Chest Lana Belle MD [address] [address] Phone: tel: fax: Referral ID Status Reason Start Date Expiration Date Visits Re quested Visits Authorized [id number] Closed 05/31/2024 11/30/2025 1 1 Reason for Visit * Imaging (Routine) - Closed Specialty Diagnoses / Procedures Referred By Debbie pro Referred To Contact Radiology Diagnoses Aneurysm of ascending aorta without rupture (CMS/HCC) Procedures CT Angio Chest Lana Belle MD [address] [address] Phone: tel: fax: Referral ID Status Reason Start Date Expiration Date Visits Re quested Visits Authorized [id number] Closed 05/31/2024 11/30/2025 1 1 Encounter Details Date Type Department Care Team (Latest Contact Info) Description 11/29/2024 9:37 AM EDT - 11/29/2024 11:59 PM EDT Hospital Encounter [facility] Radiology [address] [place] [address] Aneurysm of ascending aorta without rupture ([facility]/HCC) Discharge Disposition: Home or Self Care Social History Tobacco Use Types Packs/Day Years Used Date Smoking Tobacco: Never Smokeless Tobacco: Never Alcohol Use Standard Drinks/Week Comments Never 0 (1 standard drink = 0.6 oz pur e alcohol) PHQ-2A Answer Date Recorded Depression Risk 0 11/29/2024 Sex and Gender Information Value Date Recorded Sex Assigned at Not on file Legal Sex Male 11:59 AM EST Gender Identity Not on file Sexual Orientation Not on file Occupation Industry Job Start Date Job End Date retired Not on file Not on file Not on file documented as of this encounter Medications at Time of Discharge aspirin 81 MG EC tablet Take 1 tablet (81 mg) by mouth 1 (one) time each day. atorvastatin (Lipitor) 80 MG tablet Take 1 tablet (80 mg) by mouth 1 (one) time each day. carbamide peroxide (Debrox) 6.5 % otic solution Administer 5 drops into each ear 2 (two) times a day. carvedilol (Coreg) 3.125 MG tablet Take 1 tablet (3.125 mg) by mouth 2 (two) times a day with meals. 05/08/2024 DULoxetine (Cymbalta) [address] capsule Take 1 capsule (30 mg) by mouth 1 (one) time each day. Do not crush or chew. empagliflozin-me tFORMIN ER (Synjardy XR) 12.5-1000 MG 24 hr tablet Take 1 tablet by mouth 1 (one) time each day with breakfast. gabapentin (Neurontin) 300 MG capsule Take 1 capsule (300 mg) by mouth every night. meloxicam (Mobic) 15 MG tablet Take 1 tablet (15 mg) by mouth 1 (one) time each day. rivaroxaban (Xarelto) 20 MG tablet Take 1 tablet (20 mg) by mouth 1 (one) time each day with dinner. Take with food. sacubitril-valsa rtan (Entresto) 24-26 MG tablet Take 1 tablet by mouth 2 (two) times a day. sildenafil (Revatio) 20 MG tablet Take 1 tablet (20 mg) by mouth 3 (three) times a day. Zituvio 100 MG tablet Take 100 mg by mouth daily. 11/08/2024 documented as of this encounter Plan of Treatment Upcoming Encounters Date Type Department Care Team (Late st Contact Info) Description 11/27/2026 10:30 AM EDT Office Visit [facility] [address], [address] [place] [address] Lana Belle MD [address] [place] [address] documented as of this encounter Procedures Procedure Name Priority Date/Time Associated Diagnosis Comments CT ANGIO CHEST Routine 11/29/2024 10:32 AM EDT Aneurysm of ascending aorta without rupture (CMS/HCC) documented in this encounter Results * CT Angio Chest (11/29/2024 10:32 AM EDT) Anatomical Region Laterality Modality Chest Computed Tomogra phy Impressions 12/01/2024 5:49 PM EDT Aneurysmal dilation of the ascending thoracic aorta, 45 mm in caliber, similar to prior. CRITICAL RESULT: No COMMUNICATION: Per this written report. By electronically signing this report, I, the attending physician, attest that I have personally reviewed the images/data for the above examination(s) and agree with the final edited report. Drafted by Mathew Medrano DO on 11/29/2024 11:20 AM Final report signed by Nieves Donaldson MD on 12/01/2024 5:49 PM Narrative 12/01/2024 5:49 PM EDT CLINICAL INDICATION: Aortic aneurysm suspected TECHNIQUE: A CT angiogram of the thoracic aorta was performed in arterial phase. A total of 80 mL of Omnipaque 350 was administered during the examination. Advanced 3D workstation manipulation and review of the data set was performed by the interpreting physician to further define anatomy and possible pathology. Images of areas of interest were created utilizing various techniques. These images were saved and transferred to PACS if significant. TOTAL DLP (Dose-Length Product): 2300.32 mGy.cm Please note: The reported value represents the total of one or more individual components during the CT acquisition on this date and at this time, and as such, the same value may appear in more than one CT report depending on the interpreting/reporting physicians. COMPARISON: CT angiogram chest March 31, 2024 outside study VASCULAR FINDINGS: Pulmonary Arteries: No central filling defect. Coronary Arteries: Sequelae of prior bypass with SVG to the RCA and LCx and obtuse marginal branch, and PAUL to LAD. SVG buttons are located approximately 23 mm and 13 mm superior to the sinotubular junction. Grafts and left internal mammary artery enhance proximally however distal aspect anastomoses are not well evaluated in this nondedicated exam. Large volume atherosclerotic plaque within the karuk arteries. Thoracic aorta is normal in course. Aneurysmal dilation of the mid ascending aorta measuring up to 45 mm, similar to prior as similarly remeasured today. Small volume atherosclerotic calcification. No evidence of dissection. Left-sided arch. Common origin of the left common carotid and right brachiocephalic arteries. Visualized common carotids and vertebral arteries are unremarkable. Thoracic Aorta Measurements: Sinus: L 36 mm, R 38 mm, N 41 mm Sinotubular Junction: 39 mm Mid Ascending Aorta: 45 mm Proximal Transverse Aorta (just proximal to the great vessels): 38 mm Mid Transverse Aortic Arch (Between the Origins of the Left Carotid and Left Subclavian artery): 34 mm Distal Transverse Aorta (at the isthmus): 27 mm Proximal Descending Thoracic Aorta: 28 mm Distal Descending Thoracic Aorta: 26 mm Visualized superior abdominal aorta is normal in course and caliber. Celiac is patent and normal branching pattern. SMA demonstrates mixed plaque at the ostium with minimal narrowing. Right renal artery demonstrates mixed plaque and mild narrowing. Left renal artery demonstrates calcified plaque at the ostium with minimal narrowing. ANCILLARY FINDINGS: Mediastinum and Pleura: No mediastinal or hilar adenopathy. No pleural or pericardial effusion. Lungs: No suspicious pulmonary nodules. No consolidation. Upper Abdomen: No suspicious lesions in the partially visualized upper abdomen. Prior cholecystectomy. Left-sided renal cyst. Small splenule. Musculoskeletal: No suspicious lytic or sclerotic lesion. Sequelae of prior CABG with intact median sternotomy wires. Multilevel degenerative change with mild kyphosis. Procedure Note Nieves Donaldson MD - 12/01/2024 CLINICAL INDICATION: Aortic aneurysm suspected TECHNIQUE: A CT angiogram of the thoracic aorta was performed in arterial phase. Atotal of 80 mL of Omnipaque 350 was administered during the examination.Advanced 3D workstation manipulation and review of the data set wasperformed by the interpreting physician to further define anatomy andpossible pathology. Images of areas of interest were created utilizingvarious techniques. These images were saved and transferred to PACS ifsignificant. TOTAL DLP (Dose-Length Product): 2300.32 mGy.cm Please note: Thereported value represents the total of one or more individual componentsduring the CT acquisition on this date and at this time, and as such, thesame value may appear in more than one CT report depending on theinterpreting/reporting physicians. COMPARISON: CT angiogram chest March 31, 2024 outside study VASCULAR FINDINGS: Pulmonary Arteries: No central filling defect. Coronary Arteries: Sequelae of prior bypass with SVG to the RCA and LCxand obtuse marginal branch, and PAUL to LAD. SVG buttons are locatedapproximately 23 mm and 13 mm superior to the sinotubular junction. Graftsand left internal mammary artery enhance proximally however distal aspectanastomoses are not well evaluated in this nondedicated exam. Large volumeatherosclerotic plaque within the kar[place] arteries. Thoracic aorta is normal in course. Aneurysmal dilation of the midascending aorta measuring up to 45 mm, similar to prior as similarlyremeasured today. Small volume atherosclerotic calcification. No evidenceof dissection. Left-sided arch. Common origin of the left common carotidand right brachiocephalic arteries. Visualized common carotids andvertebral arteries are unremarkable. Thoracic Aorta Measurements: Sinus: L 36 mm, R 38 mm, N 41 mm Sinotubular Junction: 39 mm Mid Ascending Aorta: 45 mm Proximal Transverse Aorta (just proximal to the great vessels): 38 mm Mid Transverse Aortic Arch (Between the Origins of the Left Carotid andLeft Subclavian artery): 34 mm Distal Transverse Aorta (at the isthmus): 27 mm Proximal Descending Thoracic Aorta: 28 mm Distal Descending Thoracic Aorta: 26 mm Visualized superior abdominal aorta is normal in course and caliber.Celiac is patent and normal branching pattern. SMA demonstrates mixedplaque at the ostium with minimal narrowing. Right renal arterydemonstrates mixed plaque and mild narrowing. Left renal arterydemonstrates calcified plaque at the ostium with minimal narrowing. ANCILLARY FINDINGS: Mediastinum and Pleura: No mediastinal or hilar adenopathy. No pleural orpericardial effusion. Lungs: No suspicious pulmonary nodules. No consolidation. Upper Abdomen: No suspicious lesions in the partially visualized upperabdomen. Prior cholecystectomy. Left-sided renal cyst. Small splenule. Musculoskeletal: No suspicious lytic or sclerotic lesion. Sequelae ofprior CABG with intact median sternotomy wires. Multilevel degenerativechange with mild kyphosis. IMPRESSION: Aneurysmal dilation of the ascending thoracic aorta, 45 mm in caliber,similar to prior. CRITICAL RESULT: No COMMUNICATION: Per this written report. By electronically signing this report, I, the attending physician, attestthat I have personally reviewed the images/data for the aboveexamination(s) and agree with the final edited report. Drafted by Mathew Medrano DO on 11/29/2024 11:20 AM Final report signed by Nieves Donaldson MD on 12/01/2024 5:49 PM Lana Belle MD IMG CT PROCEDURES Final Result documented in this encounter Visit Diagnoses Diagnosis Aneurysm of ascending aorta without rupture (CMS/HCC) documented in this encounter Administered Medications Inactive Administered Medications - up to 3 most recent administrations Medication Order MAR Action Action Date Dose Rate Site iohexol (OMNIPaque) 350 MG/ML injection 80 mL 80 mL, Intravenous, Once in imaging, 1 dose, Starting on Wed11/29/24 at 1000, Until Wed11/29/24 at 1033, Routine, Imaging Protocol Orders Given 11/29/2024 10:33 AM EDT 80 mL documented in this encounter Additional Health Concerns Assessment Noted Time A fall risk assessment has been complete d for the patient 11/29/2024 11:37 AM EDT A Body Mass Index follow-up plan has been documented for the patient 12/01/2024 5:59 PM EDT documented as of this encounter Care Teams Agricultural Economics Professor Relationship Specialty Start Date End Date Jorge Marcum MD [facility] [place] [address] [address] PCP - General 05/16/24 Syed Bryan MD [address] [address] Referring Physician 05/16/24 Shelli Venegas [address] [place] [address] [address] [place] [address] Community Program Assistant 05/16/24 Da Lorenzo MD [facility] [address] [place], [place] [id number] Referring Physician Cardiology 06/06/24 documented as of this encounter
--- OUTSIDE RECORDS SUMMARY | 2024-11-29 11:15 | XMS_ITS | Encounter Summary ---
Author Organization Healthcare Address [address] [place] [address] Care Team Providers Care House Nurse Name Role Phone Jorge Marcum MD Primary Care Provider + [phone] Syed Bryan MD Unavailable [phone] Shelli Venegas Unavailable Da Lorenzo MD Unavailable [phone] Encounter Details Date Type Department Care Team (Late st Contact Info) Description 11/29/2024 11:15 AM EDT Office Visit [facility] [address], [address] [place] [address] Lana Belle MD [address] [facility] [address] [place] [address] Aneurysm of ascending aorta without rupture (CMS/HCC) (Primary Dx) Social History Tobacco Use Types Packs/Day Years [...] on file documented as of this encounter Last Filed Vital Signs Vital Sign Reading Time Taken Comments Blood Pressure 123/80 11/29/2024 11:29 AM EDT Pulse 84 11/29/2024 11:29 AM EDT Temperature - - Respiratory Rate - - Oxygen Saturation 99% 11/29/2024 11:29 AM EDT Inhaled Oxygen Concentration - - Weight 105 kg (232 lb 7.6 oz) 11/29/2024 11:29 A M EDT Height 188 cm (6' 2 ) 11/29/2024 11:29 AM EDT Body Mass Index 29.85 11/29/2024 11:29 AM EDT documented in this encounter Miscellaneous Notes * Progress Notes - Bijan Jean MD - 11/29/2024 11:15 AM EDT CARDIAC SURGERY CLINIC Reason for visit / Chief Complaint: Ascending Aortic Aneurysm Surveillance History of present illness: Ryan Medrano is a 74 y.o. male that follows in this clinic for surveillance of an ascending aortic aneurysm. He has a history of CABG in 2011. Recent workup showed patent bypasses. Echo showed normal cardiac function. CT was read with concerns for a 5.5cm aneurysm, but this appears to be an off-angle measurement due to significant ectasia. Our measurements were in the 4-4.5cm range. Plan was for blood pressure control and repeat imaging in 6 months. He returns to day with that imaging. Aortic measurements appear stable. His symptoms are stable. His chronic comorbid conditions that impact our treatment planning include: Prior Open Repair of Heart NYHA Classification: Class II: Mild symptoms with ordinary activity. Active Problems: Patient Active Problem List Diagnosis Date Noted BMI 29.0-29.9,adult 05/31/2024 Medical History: Past Medical History Pertinent Negatives[1] Surgical History: Surgical History[2] Social History: Tobacco: Tobacco Use: Low Risk (11/29/2024) Patient History Smoking Tobacco Use: Never Smokeless Tobacco Use: Never Passive Exposure: Not on file Alcohol: Alcohol Use: Not At Risk (08/04/2022) Received from [facility] AUDIT-C Q1: How often do you have a drink containing alcohol?: Never Q2: How many drinks containing alcohol do you have on a typical day when you are drinking?: Patientdoes not drink Q3: How often do you have six or more drinks on one occasion?: Never Illicit drug use: Social History Substance and Sexual Activity Drug Use Never Family History: family history is not on file. Allergies: Allergies[3] Medications: Prior to Admission medications Medication Sig Start Date End Date Taking? Authorizing Provider aspirin 81 MG EC tablet Take 1 tablet (81 mg) by mouth 1 (one) time each day. Yes Onofre Singh MD atorvastatin (Lipitor) 80 MG tablet Take 1 tablet (80 mg) by mouth 1 (one) time each day. Yes Onofre Singh MD carbamide peroxide (Debrox) 6.5 % otic solution Administer 5 drops into each ear 2 (two) times a day. Yes Onofre Singh MD carvedilol (Coreg) 3.125 MG tablet Take 1 tablet (3.125 mg) by mouth 2 (two) times a day with meals. 05/08/24 Yes Onofre Singh MD DULoxetine (Cymbalta) [address] capsule Take 1 capsule (30 mg) by mouth 1 (one) time each day. Do not crush or chew. Yes Onofre Singh MD empagliflozin-metFORMIN ER (Synjardy XR) 12.5-1000 MG 24 hr tablet Take 1 tablet by mouth 1 (one) time each day with breakfast. Yes Onofre Singh MD gabapentin (Neurontin) 300 MG capsule Take 1 capsule (300 mg) by mouth every night. Yes Onofre Singh MD meloxicam (Mobic) 15 MG tablet Take 1 tablet (15 mg) by mouth 1 (one) time each day. Yes Onofre Singh MD rivaroxaban (Xarelto) 20 MG tablet Take 1 tablet (20 mg) by mouth 1 (one) time each day with dinner. Take with food. Yes Onofre Singh MD sacubitril-valsartan (Entresto) 24-26 MG tablet Take 1 tablet by mouth 2 (two) times a day. Yes Onofre Singh MD sildenafil (Revatio) 20 MG tablet Take 1 tablet (20 mg) by mouth 3 (three) times a day. Yes Onofre Singh MD Zituvio 100 MG tablet Take 100 mg by mouth daily. 11/08/24 Yes Onofre Singh MD SITagliptin (Januvia) 100 MG tablet Take 1 tablet (100 mg) by mouth 1 (one) time each day. Patient not taking: Reported on 11/29/2024 11/29/24 Onofre Singh MD Physical exam: Visit Vitals BP 123/80 Pulse 84 SpO2 99% Constitutional: well developed, well nourished, and in no acute distress Eye: equal, round, and reactive Ears, Nose, Throat: normal atraumatic, no neck masses Respiratory: Normal expansion. Clear to auscultation. No rales, rhonchi, or wheezing. Cardiac: Heart sounds are normal. Regular rate and rhythm without murmur, gallop or rub. Abdomen: Soft, non-tender, normal bowel sounds; no bruits, organomegaly or masses. Musculoskeletal: normal strength, tone, and muscle mass, no deformities Psychiatric: oriented to time, place and person, mood and affect are within normal limits Neurologic: normal sensation and reflexes and motor intact No relevant labs Imagin11/29/24 CTA Chest: Thoracic Aorta Measurements: Sinus: L 36 mm, R 38 mm, N 41 mm Sinotubular Junction: 39 mm Mid Ascending Aorta: 45 mm Proximal Transverse Aorta (just proximal to the great vessels): 38 mm Mid Transverse Aortic Arch (Between the Origins of the Left Carotid and Left Subclavian artery): 34mm Distal Transverse Aorta (at the isthmus): 27 mm Proximal Descending Thoracic Aorta: 28 mm Distal Descending Thoracic Aorta: 26 mm Impression: Ryan Medrano is a 74 y.o. male with an incidentally identified 4.5cm ascending aortic aneurysm undergoing surveillance. It appears stable on repeat imaging today. Takes a daily beta cheng. NYHA Class II. We will continue surveillance. Plan: - Repeat CTA Chest in 2 years - RTC at that time [1] History reviewed. No pertinent past medical history. [2] History reviewed. No pertinent surgical history. [3] No Known Allergies Cosigned by Lana Belle MD at 12/01/2024 5:58 PM EDT Associated attestation - Lana Belle MD - 12/01/2024 5:58 PM EDT I saw and evaluated the patient with the resident/fellow. I discussed the case with the resident/fellow and agree with the findings and plan as documented. documented in this encounter Plan of Treatment Upcoming Encounters Date Type Department Care Team (Late st Contact Info) Description 11/27/2026 10:30 AM EDT Office Visit [facility] Cardiothoracic [address], [address] [place] [address] Lana Belle MD [address] [place] [address] documented as of this encounter Visit Diagnoses Diagnosis Aneurysm of ascending aorta without rupture (CMS/HCC)- Primary documented in this encounter Additional Health Concerns Assessment Noted Time A fall risk assessment has been complete d for the patient 11/29/2024 11:37 AM EDT A Body Mass Index follow-up plan has been documented for the patient 12/01/2024 5:59 PM EDT documented as of this encounter Care Teams House Nurse Relationship Specialty Start Date End Date Jorge Marcum MD [facility] [address] [id number] PCP - General 05/16/24 Syed Bryan MD [facility] [address] [address] [place], [place] [id number] Referring Physician 05/16/24 Shelli Venegas [address] [place] [address] [address] [place], [place] [id number] Industrial Maintenance Mechanic 05/16/24 Da Lorenzo MD [facility] [address] [place] [address] Referring Physician Cardiology 06/06/24 documented as of this encounter
--- NOTE | 2025-01-18 12:12 | XR_ITS ---
FINAL REPORT CLINICAL HISTORY: L Rib pain COMPARISON: None FINDINGS: LEFT RIBS WITH CHEST A single PA view of the chest and two views of the left ribs were obtained. There is mild cardiomegaly. Sternotomy wires are noted. There is atelectasis or scarring at the left lung base. There is no pneumothorax. There is no acute displaced rib fracture. IMPRESSION: Atelectasis or scarring left lung base. No displaced rib fracture with no pneumothorax Reviewed, Interpreted and Dictated by Harmeet Modi MD Transcribed by Marilyn Garcia Authenticated and [facility]
--- OUTSIDE RECORDS SUMMARY | 2025-01-18 12:12 | XMS_ITS | Encounter Summary ---
Author Organization Healthcare Address [address] [place] [address] Care Team Providers Care Access Rn Name Role Phone Jorge Marcum MD Primary Care Provider + [phone] Syed Bryan MD Unavailable [phone] Shelli Venegas Unavailable Da Lorenzo MD Unavailable [phone] Encounter Details Date Type Department Care Team (Late st Contact Info) Description 04/28/2024 Orders Only External Location [address] [place] [address] Provider, External Social History Tobacco Use Types Packs/Day Years Used Date Smoking Tobacco: Never Assessed Sex and Gender Information Value Date Recorded Sex Assigned at Not on file Legal Sex Male 11:59 AM EST Gender Identity Not on file Sexual Orientation Not on file documented as of this encounter Plan of Treatment Upcoming Encounters Date Type Department Care Team (Late st Contact Info) Description 11/27/2026 10:30 AM EDT Office Visit [facility] [address], [address] [place] [phone] Lana Belle MD [address] [place] [address] documented as of this encounter Procedures Procedure Name Priority Date/Time Associated Diagnosis Comments IR OUTSIDE IMAGES 04/28/2024 7:26 AM EST documented in this encounter Results * IR OUTSIDE IMAGES (04/28/2024 7:26 AM EST) Anatomical Region Laterality Modality X-Ray Angiograph y 04/28/2024 7:2 6 AM EST us External Provider IMG IR PROCEDURES Final Result documented in this encounter Visit Diagnoses Not on filedocumented in this encounter Care Teams Access Rn Relationship Specialty Start Date End Date Jorge Marcum MD [facility] [address] [address] PCP - General 05/16/24 Syed Bryan MD [facility] [address] [address] [place] [address] Referring Physician 05/16/24 Shelli Venegas [address] [place] [address] [place] [address] Credit Risk Analytics Manager 05/16/24 Da Lorenzo MD [facility] [address] [place] [address] Referring Physician Cardiology 06/06/24 documented as of this encounter
--- OUTSIDE RECORDS SUMMARY | 2025-01-18 12:12 | XMS_ITS | Encounter Summary ---
Author Organization Healthcare Address [address] [place] [address] Care Team Providers Care Field Technical Support Consultant Name Role Phone Jorge Marcum MD Primary Care Provider + [phone] Syed Bryan MD Unavailable [phone] Shelli Venegas Unavailable Da Lorenzo MD Unavailable [phone] Encounter Details Date Type Department Care Team (Latest Contact Info) Description 11/29/2024 Travel Social History Tobacco Use Types Packs/Day Years [...] Description 11/27/2026 10:30 AM EDT Office Visit [facility] [address], [facility] [address] [place] [address] Lana Belle MD [address] [place] [address] documented as of this encounter Visit Diagnoses Not on filedocumented in this encounter Additional Health Concerns Assessment Noted Time A fall risk assessment has been complete d for the patient 11/29/2024 11:37 AM EDT A Body Mass Index follow-up plan has been documented for the patient 12/01/2024 5:59 PM EDT documented as of this encounter Care Teams Field Technical Support Consultant Relationship Specialty Start Date End Date Jorge Marcum MD [facility] [address] [address] PCP - General 05/16/24 Syed Bryan MD [facility] [address] [phone] Referring Physician 05/16/24 Shelli Venegas [address] [place] [address] [place] [id number] Heel Gouger 05/16/24 Da Lorenzo MD [facility]0 [address] [address] [place], [place] [phone] Referring Physician Cardiology 06/06/24 documented as of this encounter
--- OUTSIDE RECORDS SUMMARY | 2025-01-18 12:12 | XMS_ITS | Clinical Summary ---
Author Organization [facility] Address [address] [place] [address] Care Team Providers Care Dandy Operator Name Role Phone Jorge Marcum MD Primary Care Provider + [phone] Syed Bryan MD Unavailable [phone] Shelli Venegas Unavailable Da Lorenzo MD Unavailable [phone] Allergies No known active allergies Medications aspirin 81 MG EC tablet Take 1 tablet (81 mg) by mouth 1 (one) time each day. Active atorvastatin (Lipitor) 80 MG tablet Take 1 tablet (80 mg) by mouth 1 (one) time each day. Active carbamide peroxide (Debrox) 6.5 % otic solution Administer 5 drops into each ear 2 (two) times a day. Active DULoxetine (Cymbalta) [address] capsule Take 1 capsule (30 mg) by mouth 1 (one) time each day. Do not crush or chew. Active gabapentin (Neurontin) 300 MG capsule Take 1 capsule (300 mg) by mouth every night. Active empagliflozin-m etFORMIN ER (Synjardy XR) 12.5-1000 MG 24 hr tablet Take 1 tablet by mouth 1 (one) time each day with breakfast. Active meloxicam (Mobic) 15 MG tablet Take 1 tablet (15 mg) by mouth 1 (one) time each day. Active rivaroxaban (Xarelto) 20 MG tablet Take 1 tablet (20 mg) by mouth 1 (one) time each day with dinner. Take with food. Active sacubitril-vals lisa (Entresto) 24-26 MG tablet Take 1 tablet by mouth 2 (two) times a day. Active sildenafil (Revatio) 20 MG tablet Take 1 tablet (20 mg) by mouth 3 (three) times a day. Active carvedilol (Coreg) 3.125 MG tablet Take 1 tablet (3.125 mg) by mouth 2 (two) times a day with meals. 4 Active Zituvio 100 MG tablet Take 100 mg by mouth daily. 5 Active Active Problems Problem Noted Date Diagnosed Date BMI 29.0-29.9,adult 05/31/2024 Encounters Date Type Department Care Team Description 11/29/2024 11:15 AM EDT Office Visit [facility] [address], [address] [place] [address] Lana Belle MD Aneurysm of ascending aorta without rupture (CMS/HCC) (Primary Dx) 11/29/2024 9:37 AM EDT - 11/29/2024 11:59 PM EDT Hospital Encounter [facility] [address] [place] [address] Aneurysm of ascending aorta without rupture (CMS/HCC) Discharge Disposition: Home or Self Care 11/29/2024 Travel from Last 3 Months Social History Tobacco Use Types Packs/Day Years Used Date Smoking Tobacco: Never Smokeless Tobacco: Never Tobacco Cessation:Counseling Given: Not Answered Alcohol Use Standard Drinks/Week Comments Never 0 [...] file Not on file Not on file Last Filed Vital Signs Vital Sign Reading [...] Mass Index 29.85 11/29/2024 11:29 AM EDT Plan of Treatment Upcoming Encounters Date Type Department Care Team (Late st Contact Info) Description 11/27/2026 10:30 AM EDT Office Visit [place] [facility] [address], [address] [place] [address] Lana Belle MD [address] [place] [address] Health Maintenance Due Date Last Done Comments [facility]-Hepatitis C Screening 1950 [facility]-Medicare Annual Wellness (AWV) 1950 [facility]-Infant/Child/Adol SDOH Screenings 1950 [facility]- SDOH Screenings 1968 [facility]-Adult SDOH Screenings 1968 CT Colonography 10/08/1995 Colonoscopy 10/08/1995 FIT-DNA 10/08/1995 FIT 10/08/1995 FOBT 10/08/1995 Sigmoidoscopy 10/08/1995 [facility]-Colorectal Cancer Screening 10/08/1995 [facility]-Zoster Vaccines (1 of 2) 2000 [id number] Vaccine (3 - season) 2024 09/15/2021, 08/21/2020 [facility]-Influenza Vaccine (#1) 02/12/202502/07, 04/25/2018 [facility]-RSV Vaccine: 60+ Years o r (1 - 1-dose 75+ series) 2025 [facility]-Depression Screening 11/29/2025 11/29/2024 [facility]-DTaP,Tdap,and Td Vaccine s (2 - Td or Tdap) 02/07/2030 02/08/2020 [facility]-Pneumococcal Vaccine: 50 + Years Completed 02/24/2023, 02/27/2020, 04/25/2018 [facility]-Obesity Intervention Completed 025, 05/31/2024 HPV Vaccines Aged Out No longer eligi ble based on patient's age to complete this topic [facility]-HIB Vaccines Aged Out No longer e ligible based on patient's age to complete this topic [facility]-Hepatitis A Vaccines Aged Out No longer eligible based on patient's age to complete this topic [facility]-IPV Vaccines Aged Out No longer e ligible based on patient's age to complete this topic [facility]-Rotavirus Vaccines Aged Out No lo nger eligible based on patient's age to complete this topic Procedures Procedure Name Priority Date/Time Associated Diagnosis Comments CT ANGIO CHEST Routine 11/29/2024 10:32 AM EDT Aneurysm of ascending aorta without rupture (CMS/HCC) from Last 3 Months Results * CT Angio Chest (11/29/2024 10:32 [...] the final edited report. Drafted by Mathew Wilder DO on 11/29/2024 11:20 AM Final report [...] exam. Large volume atherosclerotic plaque within the [place] arteries. Thoracic aorta is normal in course. [...] nondedicated exam. Large volumeatherosclerotic plaque within the [place] arteries. Thoracic aorta is normal in course. [...] the final edited report. Drafted by Mathew Wilder DO on 11/29/2024 11:20 AM Final report signed by Nieves Donaldson MD on 12/01/2024 5:49 PM Lana Belle MD IMG CT PROCEDURES Final Result from Last 3 Months Insurance AET [facility] MEDICARE ADVANTAGE ANTHEM MEDICARE Care Teams Dandy Operator Relationship Specialty Start Date End Date Jorge Marcum MD [address] [place] [address] PCP - General 05/16/24 Syed Bryan MD [address] [place] [address] Referring Physician 05/16/24 Shelli Venegas [address] [place] [address] [place] [address] Edi Architect 05/16/24 Da Lorenzo MD [address] [place] [address] Referring Physician Cardiology 06/06/24
--- OUTSIDE RECORDS SUMMARY | 2025-01-18 12:12 | XMS_ITS | Encounter Summary ---
Author Organization Healthcare Address [address] [id number] Care Team Providers Care Disposal Man Name Role Phone Jorge Marcum MD Primary Care Provider + [phone] Syed Bryan MD Unavailable [phone] Shelli Venegas Unavailable Da Lorenzo MD Unavailable [phone] Encounter Details Date Type Department Care Team (Late st Contact Info) Description 03/31/2024 Orders Only External Location [address] [place] [address] Pebbles Donaldson, OFFICE MANAGER EXECUTIVE ASSISTANT [address] [id number] Social History Tobacco Use Types Packs/Day Years Used Date Smoking Tobacco: Never Assessed Sex and Gender Information Value Date Recorded Sex Assigned at Not on file Legal Sex Male 11:59 AM EST Gender Identity Not on file Sexual Orientation Not on file documented as of this encounter Plan of Treatment Upcoming Encounters Date Type Department Care Team (Late Contact Info) Description 11/27/2026 10:30 AM EDT Office Visit [place] [facility] [address], [address] [place] [address] Lana Belle MD [address] [place] [address] documented as of this encounter Procedures Procedure Name Priority Date/Time Associated Diagnosis Comments CT OUTSIDE IMAGES 03/31/2024 10:55 AM EDT documented in this encounter Results * CT OUTSIDE IMAGES (03/31/2024 10:55 AM EDT) Anatomical Region Laterality Modality Computed Tomogra phy 03/31/2024 10:5 5 AM EDT us Pebbles Tadeo Mendoza OFFICE MANAGER EXECUTIVE ASSISTANT IMG CT PROCEDURES Final Resu lt documented in this encounter Visit Diagnoses Not on filedocumented in this encounter Care Teams Disposal Man Relationship Specialty Start Date End Date Jorge Marcum MD [facility] [address] [phone] PCP - General 05/16/24 Syed Bryan MD [facility] [address] [address] [place], [place] [id number] Referring Physician 05/16/24 Shelli Venegas [address] [place] [address] [address] [place] [address] Marine Services Technician 05/16/24 Da Lorenzo MD [facility] [address] [address] [place], [place] [phone] Referring Physician Cardiology 06/06/24 documented as of this encounter
--- OUTSIDE RECORDS SUMMARY | 2025-01-18 12:12 | XMS_ITS | Encounter Summary ---
Author Organization Healthcare Address [address] [phone] Care Team Providers Care Crisis Intervention Counselor Name Role Phone Jorge Marcum MD Primary Care Provider + [phone] Syed Bryan MD Unavailable [phone] Shelli Venegas Unavailable Da Lorenzo MD Unavailable [phone] Encounter Details Date Type Department Care Team (Late st Contact Info) Description 03/02/2024 Orders Only External Location [address] [place] [address] Pebbles Donaldson, TOP LIFT CUTTER [address] [id number] Social History Tobacco Use Types Packs/Day Years [...] Description 11/27/2026 10:30 AM EDT Office Visit [place] [facility] [address], [address] [place] [address] Lana Belle MD [address] [place] [address] documented as of this encounter Procedures Procedure Name Priority Date/Time Associated Diagnosis Comments US OUTSIDE IMAGES 03/02/2024 9:45 AM EDT documented in this encounter Results * US OUTSIDE IMAGES (03/02/2024 9:45 AM EDT) Anatomical Region Laterality Modality Ultrasound 03/02/2024 9:45 AM EDT us Pebbles N Mendoza TOP LIFT CUTTER IMG US PROCEDURES Final Resu lt documented in this encounter Visit Diagnoses Not on filedocumented in this encounter Care Teams Crisis Intervention Counselor Relationship Specialty Start Date End Date Jorge Marcum MD [address] [place], [place] [phone] PCP - General 05/16/24 Syed Bryan MD [address] [place], [place] [phone] Referring Physician 05/16/24 Shelli Venegas [address] [place] [address] [address] [place] [address] Home Specialist 05/16/24 Da Lorenzo MD [address] [place] [address] Referring Physician Cardiology 06/06/24 documented as of this encounter
--- OUTSIDE RECORDS SUMMARY | 2025-01-18 12:12 | XMS_ITS | Clinical Summary ---
Author Organization [facility] Address [address] [place] [address] Care Team Providers Care Limerock Tower Loader Name Role Phone Jorge Marcum MD Primary Care Provider [phone] Allergies No known active allergies Medications Empagliflozin-m etFORMIN HCl (Synjardy) 12.5-1000 MG tablet Take 2 tablets by mouth Daily. Active linagliptin (TRADJENTA) 5 MG tablet tablet Take 5 mg by mouth Daily. Active Sildenafil Citrate (VIAGRA PO) Take 100 mg by mouth As Needed. Active atorvastatin (LIPITOR) 80 MG tablet Take 80 mg by mouth Every Night. Active bisoprolol (ZEBeta) 5 MG tablet Take 5 mg by mouth Daily. Active lisinopril (PRINIVIL,ZESTR IL) 10 MG tablet Take 20 mg by mouth Daily. Active aspirin 81 MG chewable tablet Chew 81 mg Daily. Active rivaroxaban (Xarelto) 20 MG tablet Take 1 tablet by mouth Daily for 30 days. 30 tablet 08/05/2022 Active Active Problems Problem Noted Date Diagnosed Date TIA (transient ischemic attack) 08/04/2022 Immunizations Immunization Administration Dates Next Due Fluzone High-Dose 65+yrs 08/05/2022() Social History Tobacco Use Types Packs/Day Years Used Date Smoking Tobacco: Never Smokeless Tobacco: Never Tobacco Cessation:Counseling Given: No Alcohol Use Standard Drinks/Week Comments Never 0 (1 standard drink = 0.6 oz pur e alcohol) AUDIT-C Answer Date Recorded Q1: How often do you have a drink containing alcohol? Never 08/04/2022 Q2: How many drinks containi ng alcohol do you have on a typical day when you are drinking? Patient does not drink Q3: How often do you have si x or more drinks on one occasion? Never 08/04/2022 Abuse Screen Answer Date Recorded Unsafe at Home or Work/School Not on file Feels Threatened by Someone? Not on file Does Anyone Keep You from Co ntacting Others or Doint Things Outside the Home? Not on file 08/12/2023 Physical Sign of Abuse Present Not on file 0 08/12/2023 Housing Stability Answer Date Recorded Current Living Arrangements Not on file 07/16 Potentially Unsafe Housing Conditions Not on ivonen e 08/12/2023 Family and Community Support Answer Jayme e Recorded Help with Day-to-Day Activities Not on file 03/22/2023 Lonely or Isolated Not on file 03/22/2023 Employment Answer Date Recorded Do you want help finding or keeping work or a inocencio b? Not on file 03/22/2023 Disabilities Answer Date Recorded Concentrating, Remembering, or Making Decisions Difficulty Not on file 08/12/2023 Doing Errands Independently Difficulty Not on fi le 08/12/2023 Education Answer Date Recorded Help with school or training? Not on file Preferred Language Not on file 03/22/2023 Sex and Gender Information Value Date Recorded Sex Assigned at Not on file Legal Sex Male 10:48 AM EDT Gender Identity Not on file Sexual Orientation Not on file Last Filed Vital Signs Vital Sign Reading Time Taken Comments Blood Pressure 129/90 08/05/2022 11:14 AM EST Pulse 55 08/05/2022 11:14 AM EST Temperature 36.6 C (97.9 F) 08/05/2022 11:14 AM EST Respiratory Rate 16 08/05/2022 11:14 AM EST Oxygen Saturation 95% 08/05/2022 11:14 AM EST Inhaled Oxygen Concentration - - Weight 111 kg (244 lb 11.4 oz) 08/05/2022 12:11 PM EST Height 188 cm (6' 2.02 ) 08/05/2022 12:11 PM EST Body Mass Index 31.41 08/05/2022 12:11 PM EST Plan of Treatment Health Maintenance Due Date Last Done Comments COLOGUARD 10/08/1995 COLON CANCER SCREENING 5 YEA R SIGMOIDOSCOPY 10/08/1995 COLONOSCOPY 10/08/1995 COLORECTAL CANCER SCREENING 10/08/1995 CT COLONOGRAPHY 10/08/1995 FECAL OCCULT BLOOD TEST 10/08/1995 FIT Testing (1 year) 10/08/1995 ZOSTER VACCINE (1 of 2) 2000 AAA SCREEN ONCE 10/08/2015 ANNUAL PHYSICAL 08/05/2022 HEPATITIS C SCREENING 08/05/2022 COVID-19 Vaccine ( season) 02/13/202409/2021, 08/21/2020 INFLUENZA VACCINE 03/14/2025 02/08/2020, 04/25/2018 TDAP/TD VACCINES (2 - Td or Tdap) 02/07/2030 020 Pneumococcal Vaccine 50+ Completed 02/27/2020, 04/14 HEMOGLOBIN A1C Discontinued 08/04/2022 Procedures Procedure Name Priority Date/Time Associated Diagnosis Comments HEMOGLOBIN A1C Routine 08/04/2022 7:56 AM EST from Last 3 Months or Most Recently Relevant to Health Maintenance Results * (ABNORMAL) Hemoglobin A1c (08/04/2022 7:56 AM EST) Hemoglobin A1C 8.50(H) 4.80 - 5.60 % 08/04/2022 9:08 AM EST [facility] Blood Venipuncture / Unknown 08/04/2022 7:56 AM EST 08/04/2022 8:04 AM EST Narrative [facility] - 08/04/2022 9:08 AM EST Hemoglobin A1C Ranges: Increased Risk for Diabetes 5.7% to 6.4% Diabetes >= 6.5% Diabetic Goal < 7.0% us Angie Mcfarland APRN LAB BLOOD ORDERABLES Final R esult [facility]
[address] [place] [address], from Last 3 Months or Most Recently Relevant to Health Maintenance Insurance [employer] MEDICARE ADVANTAGE AETNA Care Teams Limerock Tower Loader Relationship Specialty Start Date End Date Jorge Marcum MD [address] [facility] [address] [place] [address] PCP - General Family Medicine 08/04/22
== END 2025-01-18 23:59 | disposition home or self-care (01) ==
LOC: RAD 12:10
PROVIDERS: PCP Nurse Practitioner Family; Visit Provider Nurse Practitioner Family
DX: R07.81 Pleurodynia (principal); I51.7 Cardiomegaly
CPT/HCPCS: 71101

== ENCOUNTER 2025-03-09 14:06 | Outpatient (CLI) | payer OTHER, MEDICARE, SELFPAY ==
--- OUTSIDE RECORDS SUMMARY | 2023-12-06 09:30 | XMS_ITS ---
[facility] Address [address] [id number] Care Team Providers Care Osteology Teacher Name Role Phone Jorge Marcum Primary Care Provider [phone] Allergies No Known Allergies Results Component Value Reference Range Notes Glucose (In-House) Reviewed date:12/07/2023 01:04:21 PM Interpretation: Performing Lab: Notes/Report: blood glucose 177 74 - 106 mg/dL Glycohemoglobin A1c (in hous e) Reviewed date:12/07/2023 01:04:30 PM Interpretation: Performing Lab: Notes/Report: glycohemoglobin 7.8% 5 - 6.5 % REASON FOR VISIT 3 months Medications Medication SIG (Take, Route, Frequency, Duration) Notes Start Date End Date Status Atorvastatin Calcium 80 MG 1 tablet Orally Once a day; Duration: 90 days Active Accu-Chek Jessica Plus - TEST 3 TIMES A DAY diagnosis E11.9 Active Gabapentin 300 MG 1 cap(s) orally 2 times a day as needed 03/10/2023 Active OneTouch Ultra 1 TEST STRIP(S) FINGERSTICK TEST 3 TIMES A DAY OR DIRECTED; Duration: 90 DAYS 04/08/2020 Active Accu-Chek Softclix Lancets 1 LANCET FINGERSTICK TEST TWICE A DAY OR DIRECTED 06/20/2018 Active Januvia 100 MG 1 tablet Orally Once a day; Duration: 90 days Active Sildenafil Citrate 20 MG TAKE 5 TABLETS BY MOUTH ONCE A DAY NEEDED Active Meloxicam 15 MG 1 tablet Orally Once a day; Duration: 90 days Active Lisinopril 5 MG 1 tablet Orally Once a day; Duration: 90 days Active Xarelto 20 MG 1 tablet Orally once daily in the evening; Duration: 90 days Active Synjardy XR 12.5-1000 MG TAKE 2 TABLETS ONCE DAILY; Duration: 30 days Active Aspirin Adult Low Dose 81 MG 1 tab(s) orally once a day Active Vital Signs Blood pressure systolic 120 mm Hg 12/06/19 24 Blood pressure diastolic 72 mm Hg 024 Heart Rate 87 /min 12/06/2023 Height 74 in 12/06/2023 Weight 231.4 lbs 12/06/2023 BMI 29.71 kg/m2 12/06/2023 Encounters Encounter Location Date Provider Diagnosis [facility] [address] [place], [place] [id number] 12/06/2023 Jorge Marcum Type 2 diabetes nedra itus without complication E11.9 ; Essential hypertension I10 ; Hyperlipidemia, unspecified hyperlipidemia type E78.5 and Polyarthralgia M25.50 Assessments Encounter Date Diagnosis (ICD Code) Assessment Notes Treatment Notes Treatment Clinical Notes Section Notes 12/06/2023 Type 2 diabetes mellitus without complication (ICD-10 - E11.9) 12/06/2023 Essential hypertension (ICD-10 - I10) 12/06/2023 Hyperlipidemia, unspecified hyperlipidemia type (ICD-10 - E78.5) 12/06/2023 Polyarthralgia (ICD-10 - M25.50) Plan Of Treatment Medication Medication Name Sig Start Date Stop Date Notes Atorvastatin Calcium 80 MG 1 tablet Oral ly Once a day; Duration: 90 days Meloxicam 15 MG 1 tablet Orally Once a day; Duration: 90 days Lisinopril 5 MG 1 tablet Orally Once a day; Duration: 90 days Next Appt Details Follow Up: 3 Months, Reason: Progress Notes * Ryan WILDERDOB:1950 ( 74 yo M)Acc No.[id number]:12/06/2023 Progress Notes Patient: Ryan CARABALLO Provider: Norman Marcum M.D. :1950 A ge:73 Y S ex:Male Date:12/06/2023 Address:[address] [place] [address] [place], [id number] Subjective: * Chief Complaints: * 1 . 3 months. * HPI: E ndocrinology: 73 year old male presents with c/o Recent Blood Sugars P t here to f/u on DM 2, states that his blood sugar has been running high. Pt states blood sugar is typically 140 or lower but has been 160-200 for the last couple of months. C ardiology: c/o Blood Pressure Elevated P t here to f/u on hypertension, states he needs rf on Lisinopril, Atorvastatin and Meloxicam. * ROS: D ERMATOLOGY: no R travon. n o H deepthi. G ASTROENTEROLOGY: no N ausea. n o V omiting. U ROLOGY: no D ifficulty urinating. n o B lood in urine. * Medical History: C oronary Artery Disease, s/p CABG, Type 2 Diabetes, Hypertension, Hyperlipidemia, Hypertriglyceridemia, Colon Polyps, Sleep Apnea, TIA, 2022, treated at [facility]. * Surgical History: H ernia X 3 , LT Knee , Rectal Fistula Repair , Percutaneous Coronary Intervention, Stents x 2 12/2010, CABG - 5 vesel bypasses 10/08/2011, Cholecystectomy [facility] Dr. Nick 12/03/2020, Colonoscopy 2017. * Hospitalization/Major Diagno stic Procedure: H eart Surgery- [place] 10/08/2011, Neck pain- [facility] ER 10/15/2014, Gall Bladder Pain- [facility] ER 05/23/2020, Cholecystitis and Cholecystectomy- [facility] 11/30-. * Family History: F ather: 80 yrs. M other: alive. 1 sister(s) . 1 son(s) , 1 daughter(s) . .? * Social History: C URRENT TOBACCO USE S moking Status: Patient does NOT smoke. C affeine: yes, frequency:tea, one gallon a day. Home smoke detector use: no. Marital Status: Single. Past smoking status: no, Smoking status: Does not smoke. Alcohol: No. Sexually active: yes. * Medications: T aking Accu-Chek Softclix Lancets 1 LANCET FINGERSTICK TEST TWICE A DAY OR DIRECTED , Taking OneTouch Ultra 1 TEST STRIP(S) FINGERSTICK TEST 3 TIMES A DAY OR DIRECTED , Taking Gabapentin 300 MG Capsule 1 cap(s) orally 2 times a day as needed , Taking Accu-Chek Jessica Plus - TEST 3 TIMES A DAY , Notes to Pharmacist: diagnosis E11.9, Taking Aspirin Adult Low Dose 81 MG Tablet Delayed Release 1 tab(s) orally once a day , Taking Synjardy XR 12.5-1000 MG Tablet Extended Release 24 Hour TAKE 2 TABLETS ONCE DAILY , Taking Xarelto 20 MG Tablet 1 tablet Orally once daily in the evening , Taking Sildenafil Citrate 20 MG Tablet TAKE 5 TABLETS BY MOUTH ONCE A DAY NEEDED , Taking Januvia 100 MG Tablet 1 tablet Orally Once a day , Taking Atorvastatin Calcium 80 MG Tablet 1 tablet Orally Once a day , Taking Meloxicam 15 MG Tablet 1 tablet Orally Once a day , Taking Lisinopril 5 MG Tablet 1 tablet Orally Once a day , Discontinued Triamcinolone Acetonide 0.1 % Cream 1 pamela applied topically 2 times a day , Medication List reviewed and reconciled with the patient * Allergies: N .K.D.A. Objective: * Vitals: W t:231.4, Temp:98.0, BP:120/72, HR:87, Nurse:lianna, Ht: 74, BMI:29.71. * Examination: G eneral Examination: General Appearance: N AD. H eart: R SR. L ungs:?clear to auscultation. P eripheral pulses: n ormal (2+) bilaterally. E xtremities:? no leg edema. Assessment: * Assessment: 1. T ype 2 diabetes mellitus without complication - E11.9 (Primary) 2 . E ssential hypertension - I10 3 . H yperlipidemia, unspecified hyperlipidemia type - E78.5 4 . P olyarthralgia - M25.50 Plan: * Treatment: Value Reference Range b lood glucose 177 74 - 106 mg/dL * Lexi Quinteros 12/06/2023 2:02:29 PM > , Provider reviewed results while patient in office. ?LAB: Glycohemoglobin A1c (in house) (Collection Date & Time - 12/06/2023)* Value Reference Range g lycohemoglobin 7.8% 5 - 6.5 % * Lexi Quinteros 12/06/2023 2:04:54 PM > , Provider reviewed results while patient in office. 2.?Essential hypertension? Refill Lisinopril Tablet, 5 MG, 1 tablet, Orally, Once a day, 90 days, 90, Refills 1.??3.?Hyperlipidemia, unspecified hyperlipidemia type? Refill Atorvastatin Calcium Tablet, 80 MG, 1 tablet, Orally, Once a day, 90 days, 90, Refills 1. ?4.?Polyarthralgia? Refill Meloxicam Tablet, 15 MG, 1 tablet, Orally, Once a day, 90 days, 90, Refills 1.?? * Procedure Codes: G 2211 Complex e/[place], [address] GLUCOSE TEST, 10107 CAPILLARY BLOOD DRAW, 59145 GLYCATED HEMOGLOBIN TEST, Modifiers: QW * Follow Up: 3 Months * Images: Billing Information: * Visit Code: 10862 Office Visit, Est Pt., Level 4. * Procedure Codes: G2211 Complex e/[place]. [address] GLUCOSE TEST. 13947 CAPILLARY BLOOD DRAW. 74449 GLYCATED HEMOGLOBIN TEST. Modifiers: QW * Electronic signature of Steff Marcum MD on 03/12/2025 at 11:14 AM EDT Sign off status: Pending * Provider: Norman Marcum M.D. Date: 0 12/06/2023 Generated for Leida george/Katelynn/Theaitting on: 0 03/12/2025 11:14 AM EDT History and Physical Notes * HPI (History of Present Illness) Category Sub-Category Detail Notes Category Not es Endocrinology Recent Blood Sugars Pt here to f /u on DM 2, states that his blood sugar has been running high. Pt states blood sugar is typically 140 or lower but has been 160-200 for the last couple of months Cardiology Blood Pressure Elevated Pt here to f/u on hypertension, states he needs rf on Lisinopril, Atorvastatin and Meloxicam Examination Category Sub-Category Detail Notes Category Not es General Examination Heart: RSR Lungs: clear to auscultatio n Extremities: no leg edema General Appearance: NAD Peripheral pulses: normal (2+) bilatera lly
--- OUTSIDE RECORDS SUMMARY | 2024-03-13 06:30 | XMS_ITS ---
[facility] Organization [facility] Address [address] [phone] Care Team Providers Care Order Control Clerk Blood Bank Name Role Phone Jorge Marcum Primary Care [...] 196 Performing Lab: Notes/Report: Test performed by [facility], [facility] [address] [place] [address] , [address], [place] [address] Vazquez Perry MD, Handicraft Or Hobby Shop Manager CLIA: [id number] Sodium 139 135-145 mmol/L Potassium 4.0 3.5-5.3 [...] Normal Performing Lab: Notes/Report: Test performed by [facility], [address] , [facility], [place] [address] Vazquez Perry MD, Handicraft Or Hobby Shop Manager CLIA: [id number] Cholesterol 135 <200 mg/dL Triglycerides 96 <150 [...] Normal Performing Lab: Notes/Report: Test performed by [facility] [address] [place] [address] , [address], [place] [address] Vazquez Perry MD, Handicraft Or Hobby Shop Manager CLIA: [id number] PSA 0.37 <4.00 ng/mL Please note this is an ultrasensitive PSA assay with a lower limit of detection of 0.014 ng/mL. This test is performed by the [employer]i ECLIA methodology. Values obtained with different assay methods or kits cannot be directly compared. P-TSH reflex to FT4 Reviewed date:03/14/2024 10:07:56 AM Interpretation: Normal Performing Lab: Notes/Report: Test performed by [facility] [address] [place] [address] , [place] [address] Vazquez Perry MD, Handicraft Or Hobby Shop Manager CLIA: [id number] TSH reflex to FT4 1.24 0.43-5.25 mU/L P-Microalbumin/Creatinine, R andom Urine Sample Reviewed date:03/14/2024 10:07:56 AM Interpretation: Normal Performing Lab: Notes/Report: Test performed by [facility] [address] [place] [address] , [address], [place] [address] Vazquez Perry MD, Handicraft Or Hobby Shop Manager CLIA: [id number] Albumin/Creatinine Ratio, Urine See Comment 0-30 ug/mg Unable to calculate Urine Albumin/Creatinine Ratio when urine creatinine or urine albumin fall outside established reportable range. Microalbumin, Urine, Random <0.3 Creatinine, Urine 52.2 P-Vitamin D 25-Hydroxy Reviewed date:03/14/2024 10:07:56 AM Interpretation: Normal Performing Lab: Notes/Report: Test performed by [facility] [address] [place] [address] , [address], [place] [address] Vazquez Perry MD, Handicraft Or Hobby Shop Manager CLIA: [id number] Vitamin D 25-Hydroxy 52.6 30.0-100.0 ng/mL Interpretation [...] 03/13/2024 Encounters Encounter Location Date [facility] [address] [phone] 03/13/2024 Jorge Marcum Type 2 diabetes nedra [...] * Ryan WILDERDOB:1950 ( 74 yo M)Acc No.[id number]:03/13/2024 Progress Notes Patient: Ryan CARABALLO Provider: Norman Marcum M.D. :1950 A ge:73 Y S ex:Male Date:03/13/2024 Address:[address] [place] [address], [id number] Subjective: * Chief Complaints: * 1 . [...] Polyps, Sleep Apnea, TIA, 2022, treated at [facility]. * Surgical History: H ernia X 3 , LT Knee , Rectal Fistula Repair , Percutaneous Coronary Intervention, Stents x 2 12/2010, CABG - 5 vesel bypasses 10/08/2011, Cholecystectomy [facility] Dr. Nick 12/03/2020, Colonoscopy 2017. * Hospitalization/Major Diagno stic Procedure: H eart Surgery- [place] 10/08/2011, Neck pain- [facility] ER 10/15/2014, Gall Bladder Pain- [facility] ER 05/23/2020, Cholecystitis and Cholecystectomy- [facility] 11/30-. * Family History: F ather: [...] G 2211 Complex e/[place], [address] GLUCOSE TEST, 486[address] GLYCATED HEMOGLOBIN TEST, Modifiers: QW * Follow Up: 4 Months * Images: Billing Information: * Visit Code: 28074 Office Visit, Est Pt., Level 4. * Procedure Codes: G2211 Complex e/[place]. [address] GLUCOSE TEST. 85934 GLYCATED HEMOGLOBIN TEST. Modifiers: QW * Electronic signature of Steff Marcum MD on 03/12/2025 at 11:14 AM EDT Sign off status: Pending * Provider: Norman Marcum M.D. Date: 0 03/13/2024 Generated for Leida george/Katelynn/Sindysmitting on: 0 03/12/2025 11:14 AM EDT History [...]
--- OUTSIDE RECORDS SUMMARY | 2024-05-24 07:15 | XMS_ITS ---
Author Organization [place] Address 1210 [facility] [address] [phone] Care Team Providers Care Supervisor Statement Clerks Name Role Phone Jorge Marcum Primary Care Provider [phone] Allergies No Known Allergies REASON FOR VISIT sore throat and cough Encounters Encounter Location Date Provider Diagnosis [place] [facility] [address] [phone] 05/24/2024 Jorge Marcum Plan Of Treatment No Information Progress Notes * Ryan WILDERDOB:1950 ( 74 yo M)Acc No.[id number]:05/24/2024 Progress Notes Patient: Ryan CARABALLO Provider: Norman Marcum M.D. :1950 A ge:73 Y S ex:Male Date:05/24/2024 Address:[facility] E [id number] Subjective: * Chief Complaints: * 1 . Sore throat and cough. * HPI: E NT/respiratory: 73 year old male presents with c/o cough. * ROS: D ERMATOLOGY: no R travon. n o H deepthi. G ASTROENTEROLOGY: no N ausea. n o V omiting. U ROLOGY: no D ifficulty urinating. n o B lood in urine. * Medical History: C oronary Artery Disease, s/p CABG, Type 2 Diabetes, Hypertension, Hyperlipidemia, Hypertriglyceridemia, Colon Polyps, Sleep Apnea, TIA, 2022, treated at [facility]. * Surgical History: H ernia X 3 , LT Knee , Rectal Fistula Repair , Percutaneous Coronary Intervention, Stents x 2 12/2010, CABG - 5 vesel bypasses 10/08/2011, Cholecystectomy [facility] Dr. Nick 12/03/2020, Colonoscopy 2017. * Hospitalization/Major Diagno stic Procedure: H eart Surgery- [place] 10/08/2011, Neck pain- [facility] ER 10/15/2014, Gall Bladder Pain- [facility] ER 05/23/2020, Cholecystitis and Cholecystectomy- [facility] 11/30-. * Family History: F ather: [...] smoke. Alcohol: No. Sexually active: yes. * Allergies: N .K.D.A. Objective: * Vitals: Assessment: Plan: * Treatment: * Images: Billing Information: * Visit Code: * Procedure Codes: * Electronic signature of Steff Marcum MD on 03/12/2025 at 11:13 AM EDT Sign off status: Pending * Provider: Norman Marcum M.D. Date: 07/25/2023 Generated for Leida george/Katelynn/Theaitting on: 0 03/12/2025 11:13 AM EDT History and Physical Notes * HPI (History of Present Illness) Category Sub-Category Detail Notes Category Not es ENT/respiratory cough
--- OUTSIDE RECORDS SUMMARY | 2024-07-13 05:15 | XMS_ITS ---
Author Organization [facility] Address [address] [phone] Care Team Providers Care Director Dental Services Name Role Phone Jorge Marcum Primary Care [...] 165 Performing Lab: Notes/Report: Test performed by [facility] [address] [place] [address] , [address], [place] [address] Vazquez Perry MD, Marketing Area Manager CLIA: [id number] Sodium 143 135-145 mmol/L Potassium 4.5 3.5-5.3 mmol/L Chloride 104 97-108 mmol/L CO2 29 22-32 mmol/L Glucose 165 65-99 mg/dL BUN 11 8-23 mg/dL Creatinine 0.90 0.70-1.30 mg/dL Calcium 9.2 8.6-10.4 mg/dL eGFR by Creatinine 90 >59 mL/min/1.73m2 P-Vitamin D 25-Hydroxy Reviewed date:07/14/2024 10:19:47 AM Interpretation:51.2 Performing Lab: Notes/Report: Test performed by [facility] [address] [facility] , [address], [place] [address] Vazquez Perry MD, Marketing Area Manager CLIA: [id number] Vitamin D 25-Hydroxy 51.2 30.0-100.0 ng/mL Interpretation [...] 07/13/2024 Encounters Encounter Location Date Provider Diagnosis [facility] [address] [place], [place] [phone] 07/13/2024 Jorge Marcum Type 2 diabetes nedra [...] * Ryan WILDERDOB:1950 ( 74 yo M)Acc No.[id number]:07/13/2024 Progress Notes Patient: Ryan CARABALLO Provider: Norman Marcum M.D. :1950 A ge:73 Y S ex:Male Date:07/13/2024 Address:[address] [place] [address] [place], [id number] Subjective: * Chief Complaints: * 1 . [...] Polyps, Sleep Apnea, TIA, 2022, treated at [facility]. * Surgical History: H ernia X 3 , LT Knee , Rectal Fistula Repair , Percutaneous Coronary Intervention, Stents x 2 12/2010, CABG - 5 vesel bypasses 10/08/2011, Cholecystectomy [facility] Dr. Nick 12/03/2020, Colonoscopy 2018. * Hospitalization/Major Diagno stic Procedure: H eart Surgery- [place] 10/08/2011, Neck pain- [facility] ER 10/15/2014, Gall Bladder Pain- [facility] ER 05/23/2020, Cholecystitis and Cholecystectomy- [facility] 11/30-. * Family History: F [...] by Creatinine 90 >59 - mL/min/1.73m2 * Nichoel [place] 07/14/2024 10:1 6:43 AM >See phone [...] G 2211 Complex e/[place], [address] GLUCOSE TEST, [address] GLYCATED HEMOGLOBIN TEST, Modifiers: QW , 3051F HG A1C>EQUAL 7.0%<8.0%, 3074F SYST BP LT 130 MM HG, 3078F DIAST BP < 80 MM HG * Follow Up: 4 Months * Images: Billing Information: * Visit Code: 35200 Office Visit, Est Pt., Level 4. * Procedure Codes: G2211 Complex e/[place]. [address] GLUCOSE TEST. [address]192 GLYCATED HEMOGLOBIN TEST. Modifiers: QW 3051F HG A1C>EQUAL 7.0%<8.0%. 3074F SYST BP LT 130 MM HG. 3078F DIAST BP < 80 MM HG. * Electronic signature of Steff Marcum MD on 03/12/2025 at 11:14 AM EDT Sign off status: Pending * Provider: Norman Marcum M.D. Date: 0 07/13/2024 Generated for Leida george/Katelynn/Yessi on: 0 03/12/2025 11:14 AM EDT History [...]
--- OUTSIDE RECORDS SUMMARY | 2024-11-09 05:15 | XMS_ITS ---
Author Organization [place] Address [facility] [address] [place] [phone] Care Team Providers Care Growth Hacker Name Role Phone Jorge Marcum Primary Care Provider Allergies No Known Allergies REASON FOR VISIT 4 month check Encounters Encounter Location Date Provider Diagnosis [place] [address] [phone] 11/09/2024 Jogre Marcum Plan Of Treatment No Information Progress Notes * Ryan WILDERDOB:1950 ( 74 yo M)Acc No.[id number]:11/09/2024 Progress Notes Patient: Ryan CARABALLO Provider: Norman Marcum M.D. :1950 A ge:74 Y S ex:Male Date:11/09/2024 Address:[address] [facility], [place], [id number] Subjective: * Chief Complaints: * 1 . 4 month check. * ROS: D ERMATOLOGY: no R travon. n o H deepthi. G ASTROENTEROLOGY: no N ausea. n o V omiting. U ROLOGY: no D ifficulty urinating. n o B lood in urine. * Medical History: C oronary Artery Disease, s/p CABG, Type 2 Diabetes, Hypertension, Hyperlipidemia, Hypertriglyceridemia, Colon Polyps, Sleep Apnea, TIA, 2022, treated at [facility]. * Surgical History: H ernia X 3 , LT Knee , Rectal Fistula Repair , Percutaneous Coronary Intervention, Stents x 2 12/2010, CABG - 5 vesel bypasses 10/08/2011, Cholecystectomy [facility] Dr. Nick 12/03/2020, Colonoscopy 2017. * Hospitalization/Major Diagno stic Procedure: H eart Surgery- [place] 10/08/2011, Neck pain- [facility] ER 10/15/2014, Gall Bladder Pain- [facility] ER 05/23/2020, Cholecystitis and Cholecystectomy- [facility] 11/30-. * Family History: F ather: [...] Pending * Provider: Norman Marcum M.D. Date: 11/09/2024 Generated for Leida george/Katelynn/Theaitting on: 03/12/2025 11:13 AM EDT
--- OUTSIDE RECORDS SUMMARY | 2025-03-12 11:14 | XMS_ITS | Encounter Summary ---
Author Organization Healthcare Address [address] [phone] Care Team Providers Care Chief Sustainability Officer Name Role Phone Jorge Marcum MD Primary Care Provider + [phone] Syed Bryan MD Unavailable [phone] Shelli Venegas Unavailable Da Lorenzo MD Unavailable [phone] Encounter Details Date Type Department Care Team (Late st Contact Info) Description 03/02/2024 Orders Only External Location [address] [place] [address] Pebbles Donaldson, MED SURG RN [address] [phone] Social History Tobacco Use Types Packs/Day Years [...] Description 11/27/2026 10:30 AM EDT Office Visit [place] [facility] [address], [address] [place] [address] Lana Belle MD [address] [place] [address] documented as of this encounter Procedures Procedure Name Priority Date/Time Associated Diagnosis Comments US OUTSIDE IMAGES 03/02/2024 9:45 AM EDT documented in this encounter Results * US OUTSIDE IMAGES (03/02/2024 9:45 AM EDT) Anatomical Region Laterality Modality Ultrasound 03/02/2024 9:45 AM EDT us Pebbles N Mendoza MED SURG RN IMG US PROCEDURES Final Resu lt documented in this encounter Visit Diagnoses Not on filedocumented in this encounter Care Teams Chief Sustainability Officer Relationship Specialty Start Date End Date Jorge Marcum MD [address] [place], [place] [phone] PCP - General 05/16/24 Syed Bryan MD [address] [place], [place] [phone] Referring Physician 05/16/24 Shelli Venegas [address] [place] [address] [address] [place] [address] Tree Care Foreman 05/16/24 aD Lorenzo MD [address] [place] [address] Referring Physician Cardiology 06/06/24 documented as of this encounter
--- OUTSIDE RECORDS SUMMARY | 2025-03-12 11:14 | XMS_ITS | Patient Health Record ---
[facility] Address [address] [id number] Care Team Providers Care Sock Mender Name Role Phone Jorge Marcum Primary Care [...] 165 Performing Lab: Notes/Report: Test performed by [facility] [address] [place] [address] , Suite , [place] [address] Vazquez Perry MD, Ice Cream Vendor CLIA: [id number] Sodium 143 135-145 mmol/L Potassium 4.5 3.5-5.3 mmol/L Chloride 104 97-108 mmol/L CO2 29 22-32 mmol/L Glucose 165 65-99 mg/dL BUN 11 8-23 mg/dL Creatinine 0.90 0.70-1.30 mg/dL Calcium 9.2 8.6-10.4 mg/dL eGFR by Creatinine 90 >59 mL/min/1.73m2 P-Vitamin D 25-Hydroxy Reviewed date:07/14/2024 10:19:47 AM Interpretation:51.2 Performing Lab: Notes/Report: Test performed by [facility], [address] , [place] [address] Vazquez Perry MD, Ice Cream Vendor CLIA: [id number] Vitamin D 25-Hydroxy 51.2 30.0-100.0 ng/mL Interpretation of Vitamin D 25 [place]: < 20 ng/mL - Deficiency 20 - 29 ng/mL - Insufficiency 30 - 100 ng/mL - Sufficiency > 100 ng/mL - Super-therapeutic- toxicity may occur above this level. Clinical correlation required. Glucose (In-House) Reviewed date:03/13/2024 11:28:25 AM Interpretation: Performing Lab: Notes/Report: blood glucose 237 74 - 106 mg/dL Glycohemoglobin A1c (in hous e) Reviewed date:03/13/2024 11:28:18 AM Interpretation: Performing Lab: Notes/Report: glycohemoglobin 7.6% 5 - 6.5 % P-Comprehensive Metabolic Pa omkar ([facility]) Reviewed date:03/14/2024 10:07:56 AM Interpretation:gluc 196 Performing Lab: Notes/Report: Test performed by [facility] [address] [place] [address] , [address], [place] [id number] Vazquez Perry MD, Ice Cream Vendor CLIA: [id number] Sodium 139 135-145 mmol/L Potassium 4.0 3.5-5.3 [...] Normal Performing Lab: Notes/Report: Test performed by [facility], [address] [place] [address] Vazquez Perry MD, Ice Cream Vendor CLIA: [id number] Cholesterol 135 <200 mg/dL Triglycerides 96 <150 [...] Normal Performing Lab: Notes/Report: Test performed by [facility] [address] [place], [place] [address] Vazquez Perry MD, Ice Cream Vendor CLIA: [id number] PSA 0.37 <4.00 ng/mL Please note this is an ultrasensitive PSA assay with a lower limit of detection of 0.014 ng/mL. This test is performed by the [employer] ECLIA methodology. Values obtained with different assay methods or kits cannot be directly compared. P-TSH reflex to FT4 Reviewed date:03/14/2024 10:07:56 AM Interpretation: Normal Performing Lab: Notes/Report: Test performed by [facility] [address] [place] [address] , [address], [place] [address] Vazquez Perry MD, Ice Cream Vendor CLIA: [id number] TSH reflex to FT4 1.24 0.43-5.25 mU/L P-Microalbumin/Creatinine, R andom Urine Sample Reviewed date:03/14/2024 10:07:56 AM Interpretation: Normal Performing Lab: Notes/Report: Test performed by [facility] [address] , [address], [place] [address] Vazquez Perry MD, Ice Cream Vendor CLIA: [id number] Albumin/Creatinine Ratio, Urine See Comment 0-30 ug/mg Unable to calculate Urine Albumin/Creatinine Ratio when urine creatinine or urine albumin fall outside established reportable range. Microalbumin, Urine, Random <0.3 Creatinine, Urine 52.2 P-Vitamin D 25-Hydroxy Reviewed date:03/14/2024 10:07:56 AM Interpretation: Normal Performing Lab: Notes/Report: Test performed by [facility] [address] , [address], [place] [address] Vazquez Perry MD, Ice Cream Vendor CLIA: [id number] Vitamin D 25-Hydroxy 52.6 30.0-100.0 ng/mL Interpretation of Vitamin D 25 [place]: < 20 ng/mL - Deficiency 20 - 29 ng/mL - Insufficiency 30 - 100 ng/mL - Sufficiency > 100 ng/mL - Super-therapeutic- toxicity may occur above this level. Clinical correlation required. Medications Medication SIG (Take, Route, Frequency, Duration) Notes Start Date End Date Status Synjardy XR 12.5-1000 MG 2 tablets with breakfast Orally Once a day; Duration: 30 days Pt needs appt Active Carvedilol 3.125 MG 1 tablet with food Orally Twice a day Active Xarelto 20 MG 1 tablet with food i n the evening Orally Once a day; Duration: 15 days PT NEEDS APPT Active Sildenafil Citrate 20 mg TAKE 5 TABLETS BY MOUTH ONCE A DAY NEEDED; Duration: 6 Active DULoxetine HCl 30 MG 1 capsule Orally On ce a day; Duration: 7 days Active Entresto 24-26 MG 1 tablet Orally Twic e a day; Duration: 30 day(s) Active Aspirin Adult Low Dose 81 MG 1 tab(s) orally once a day Active Gabapentin 300 MG 1 cap(s) orally 2 times a day as needed 12/23/2023 Active Accu-Chek Jessica Plus - TEST BLOOD SUGAR 3 TIMES A DAY Active Atorvastatin Calcium 80 MG 1 tablet Orally Once a day; Duration: 30 days Active Accu-Chek Softclix Lancets 1 LANCET FINGERSTICK TEST TWICE A DAY OR DIRECTED 06/20/2018 Active OneTouch Ultra 1 TEST STRIP(S) FINGERSTICK TEST 3 TIMES A DAY OR DIRECTED; Duration: 90 DAYS 04/08/2020 Active Zituvio 100 MG 1 tablet Orally Once a day; Duration: 30 days Pt Needs Appt Active Meloxicam 15 MG 1 tablet Orally Once a day; Duration: 14 days PT NEEDS APPT!! Active Immunizations Vaccine Route Administration Date Status Comme nts COVID 19 Juan Unknown 08/21/2020 Administered COVID 19 Juan Unknown 09/15/2021 Administered Fluzone High Dose (65yr and older) IM Intramuscular 04/25/2018 Administered Fluzone High Dose (65yr and older) IM Intramuscular 02/08/2020 Administered Fluzone High Dose (65yr and older) IM Intramuscular 02/24/2023 Administered PNEUMOVAX 23 VACCINE IM Intramuscular 02/27/2020 Administe red Prevnar (PCV13) IM Intramuscular 04/25/2018 Administered Prevnar (PCV20) IM Intramuscular 02/24/2023 Administered Tetanus Tdap-Adacel (over 7yrs) IM Intramuscular 02/08/2020 Administered Problems Problem Type SNOMED Code ICD Code Onset Dates Problem Status W/U Status Risk Notes Problem Vitamin D deficiency (59878546) Vitamin D deficiency (E55.9) Active confirmed Problem Essential hypertension (39225668) Essential hypertension (I10) Active confirmed Problem Hyperlipidaemia (41811102) Hyperlipemia (E78.5) Active confirmed Problem Benign essential hypertension (0040524) Benign essential hypertension (I10) Active confirmed Problem Cholelithiasis without obstruction (21616945) Calculus of gallbladder without cholecystitis without obstruction (K80.20) Active confirmed Problem Type II diabetes mellitus without complication (391752662) Type 2 diabetes mellitus without complication (E11.9) Active confirmed Problem Atherosclerosis of coronary artery without angina pectoris (788121469238244) Atherosclerosis of [place] coronary artery of [place] heart without angina pectoris (I25.10) Active confirmed Problem Obstructive sleep apnea syndrome (56724139) Obstructive sleep apnea syndrome (G47.33) Active confirmed Problem Erectile dysfunction (disorder) (919802180) Erectile dysfunction, unspecified erectile dysfunction type (N52.9) Active confirmed Problem Hyperlipidaemia (33573458) Hyperlipidemia, unspecified hyperlipidemia type (E78.5) Active confirmed Problem Disorder of neck (418948308) Disorder of neck (M53.82) Active confirmed Problem Transient ischemic attack (279490743) TIA (transient ischemic attack) (G45.9) Active confirmed Problem Type II diabetes mellitus without complication (573953029) Controlled type 2 diabetes mellitus without complication, without long-term current use of insulin (E11.9) Active confirmed Problem History of excision of intestinal structure (127642361) S/P cholecystectomy (Z90.49) Active confirmed Problem Skin sensation disturbance (21671066) Burning sensation of lower extremity (R20.8) Active confirmed Problem Arthritis of left acromioclavicular joint (4075993335952482) Arthritis of left acromioclavicular joint (M19.012) Active confirmed Vital Signs Heart Rate 75 /min 03/13/2024 Blood pressure diastolic 70 mm Hg 07/13/2024 Height 74 in 07/13/2024 Blood pressure systolic 120 mm Hg 07/13/2024 Weight 235.8 lbs 07/13/2024 BMI 30.27 kg/m2 07/13/2024 Encounters Encounter Location Date Provider Diagnosis [facility] [address] [facility] [address] [place] [id number] 03/13/2024 [place] Type 2 diabetes nedra itus without complication E11.9 ; Essential hypertension I10 ; Hyperlipidemia, unspecified hyperlipidemia type E78.5 ; Vitamin D deficiency E55.9 and Prostate cancer screening Z12.5 [facility] [address] [facility] [address] [place], [place] [id number] 07/13/2024 Jorge [place] Type 2 diabetes nedra itus without complication E11.9 ; Essential hypertension I10 and Vitamin D deficiency E55.9 [facility] [address] [place], [place] [id number] 01/17/2025 Jorge [place] [facility] [address] [place], [place] [id number] 03/14/2024 Jorge [place] [facility] [address] [place] [id number] 03/31/2024 Jorge [place] [facility] [address] [place] [id number] 04/03/2024 Jorge [place] Type 2 diabetes nedra itus without complication E11.9 [facility] [address] [place], [place] [id number] 04/10/2024 Jorge [place] Polyarthralgia M25.5 0 ; Hyperlipidemia, unspecified hyperlipidemia type E78.5 ; Type 2 diabetes mellitus without complication E11.9 and Essential hypertension I10 [facility] [address] [place], [place] [id number] 05/29/2024 Jorge [place] Type 2 diabetes nedra itus without complication E11.9 [facility] [address] [place], [place] [id number] 06/03/2024 Jorge [place] [facility] [address] [place] [id number] 06/27/2024 Jorge [place] Type 2 diabetes nedra itus without complication E11.9 [facility] [address] [place], [place] [id number] 07/14/2024 Jorge [place] [facility] [address] [place], [place] [id number] 10/10/2024 Jorge [place] Type 2 diabetes nedra itus without complication E11.9 Assessments Encounter Date Diagnosis (ICD Code) Assessment Notes Treatment Notes Treatment Clinical Notes Section Notes 03/13/2024 Essential hypertension (ICD-10 - I10) 03/13/2024 Type 2 diabetes mellitus without complication (ICD-10 - E11.9) 04/03/2024 Type 2 diabetes mellitus without complication (ICD-10 - E11.9) 04/10/2024 Polyarthralgia (ICD-10 - M25.50) 05/29/2024 Type 2 diabetes mellitus without complication (ICD-10 - E11.9) 06/27/2024 Type 2 diabetes mellitus without complication (ICD-10 - E11.9) 07/13/2024 Essential hypertension (ICD-10 - I10) 07/13/2024 Type 2 diabetes mellitus without complication (ICD-10 - E11.9) 10/10/2024 Type 2 diabetes mellitus without complication (ICD-10 - E11.9) 07/13/2024 Vitamin D deficiency (ICD-10 - E55.9) 04/10/2024 Hyperlipidemia, unspecified hyperlipidemia type (ICD-10 - E78.5) 03/13/2024 Hyperlipidemia, unspecified hyperlipidemia type (ICD-10 - E78.5) 03/13/2024 Vitamin D deficiency (ICD-10 - E55.9) 04/10/2024 Type 2 diabetes mellitus without complication (ICD-10 - E11.9) 04/10/2024 Essential hypertension (ICD-10 - I10) 03/13/2024 Prostate cancer screening (ICD-10 - Z12.5) Plan Of Treatment No Information Insurance Providers Payer Name Payer Address Payer Phone Subscriber Number Group Number Insured Name Patient Relationship to Insured Coverage Start Date Coverage End Date AEJAMMIE ALMANZAR [id number] [place] [address] [id number] Ryan Medrano Self - patient is the insured Medications Administered Medication Instructions Date of Administration Dosage Notes Dexamethasone 03/12/2015 1 mL Dexamethasone 09/19/2015 1 mL Given by AB Dexamethasone 07/10/2016 1 mL Dexamethasone 02/17/2017 1 mL Dexamethasone 02/25/2022 1 mL Medical (General) History Medical History History ICD Code Coronary Artery Disease, s/p CABG Type 2 Diabetes Hypertension Hyperlipidemia Hypertriglyceridemia Colon Polyps Sleep Apnea TIA, 2022, treated at [facility] Surgical History Surgery Date(Month/Year) Hernia X 3 LT Knee Rectal Fistula Repair Percutaneous Coronary Intervention, Sten ts x 2 12/2010 CABG - 5 vesel bypasses 10/08/2011 Cholecystectomy [facility] Dr. Nick Colonoscopy 2017 Hospitalization History Reason Date(Month/Year) Cholecystitis and Cholecystectomy- [facility] 0 11/30- Gall Bladder Pain- [facility] ER 05/23/2020 Neck pain- [facility] ER 10/15/2014 Heart Surgery- [place] 10/08/2011
--- OUTSIDE RECORDS SUMMARY | 2025-03-12 11:14 | XMS_ITS | Clinical Summary ---
Author Organization [facility] Address [address] [place] [address] Care Team Providers Care Roustabout Name Role Phone Jorge Marcum MD Primary Care Provider + [phone] Syed Bryan MD Unavailable [phone] Shelli Venegas Unavailable Da Lorenzo MD Unavailable [phone] Allergies No known active allergies Medications aspirin [...] Noted Date Diagnosed Date BMI 29.0-29.9,adult 05/31/2024 Social History Tobacco Use Types Packs/Day Years [...] Description 11/27/2026 10:30 AM EDT Office Visit [place] [facility] [address], [facility] [address] [place] [address] Lana Belle MD [address] [place] [address] Health Maintenance Due Date Last Done Comments [facility]-Hepatitis C Screening 1950 [facility]-Medicare Annual Wellness (AWV) 1950 [facility]-/Child/Adol SDOH Screenings 1950 [facility]- SDOH Screenings 1968 [facility]-Adult SDOH Screenings 1968 CT Colonography 10/08/1995 Colonoscopy 10/08/1995 FIT-DNA 10/08/1995 FIT 10/08/1995 FOBT 10/08/1995 Sigmoidoscopy 10/08/1995 [facility]-Colorectal Cancer Screening 10/08/1995 [facility]-Zoster Vaccines (1 of 2) 2000 [id number] Vaccine (3 - season) 2025 09/15/2021, 08/21/2020 [facility]-Influenza Vaccine (#1) 02/12/202502/07, 04/25/2018 [...] on patient's age to complete this topic Insurance AETNA [facility] MEDICARE ADVANTAGE ANTHEM MEDICARE Care Teams Roustabout Relationship Specialty Start Date End Date Jorge Marcum MD [facility] [place] [address] PCP - General 05/16/24 Syed Bryan MD [address] [place] [address] Referring Physician 05/16/24 Shelli Venegas [address] [place] [address] [place], [place] [phone] Filling Machine Tender 05/16/24 Da Lorenzo MD [address] [place], [place] [address] Referring Physician Cardiology 06/06/24
--- OUTSIDE RECORDS SUMMARY | 2025-03-12 11:14 | XMS_ITS | Encounter Summary ---
Author Organization [facility] Address [address] [place] [address] Care Team Providers Care Relay Checker Name Role Phone Jorge Marcum MD Primary Care Provider + [phone] Syed Bryan MD Unavailable [phone] Shelli Venegas Unavailable Da Lorenzo MD Unavailable [phone] Encounter Details Date Type Department Care Team (Late st Contact Info) Description 04/28/2024 Orders Only External Location [address] [place] [address] Provider, External Social History Tobacco Use Types [...] Description 11/27/2026 10:30 AM EDT Office Visit [place] [facility] [address], [address] [place] [address] Lana Belle MD [address] [place] [address] documented as of this encounter Procedures Procedure Name Priority Date/Time Associated Diagnosis Comments IR OUTSIDE IMAGES 04/28/2024 7:26 AM EST documented in this encounter Results * IR OUTSIDE IMAGES (04/28/2024 7:26 AM EST) Anatomical Region Laterality Modality X-Ray Angiograph y 04/28/2024 7:26 AM EST us External Provider IMG IR PROCEDURES Final Result documented in this encounter Visit Diagnoses Not on filedocumented in this encounter Care Teams Relay Checker Relationship Specialty Start Date End Date Jorge Marcum MD [facility] [address] [address] PCP - General 05/16/24 Syed Bryan MD [facility] [address] [address] Referring Physician 05/16/24 Shelli Venegas [address] [place] [address] [address] [place] [address] Coding File Clerk 05/16/24 Da Lorenzo MD [address] [place] [address] [place] [address] Referring Physician Cardiology 06/06/24 documented as of this encounter
--- OUTSIDE RECORDS SUMMARY | 2025-03-12 11:14 | XMS_ITS | Clinical Summary ---
Author Organization [facility] Address [address] [place] [address] Care Team Providers Care Technical Assistance Consultant Name Role Phone Jorge Marcum MD Primary Care Provider [phone] Allergies No known active allergies Medications Empagliflozin-m [...] 07/16 Potentially Unsafe Housing Conditions Not on ivonne e 08/12/2023 Family and Community Support Answer [...] 2) 2000 AAA SCREEN ONCE 10/08/2015 ANNUAL WELLNESS VISIT 08/05/2022 HEPATITIS C SCREENING 08/05/2022 INFLUENZA VACCINE 01/12/2025 02/08/2020, 04/25/2018 COVID-19 Vaccine (3 - season) 02/12/202509/2021, 08/21/2020 TDAP/TD VACCINES (2 - Td or Tdap) [...] - 5.60 % 08/04/2022 9:08 AM EST [facility] Blood Venipuncture / Unknown 08/04/2022 7:56 AM EST 08/04/2022 8:04 AM EST Narrative [facility] - 08/04/2022 9:08 AM EST Hemoglobin A1C Ranges: Increased Risk for Diabetes 5.7% to 6.4% Diabetes >= 6.5% Diabetic Goal < 7.0% us Angie Mcfarland DIRECTOR OF SUSTAINABILITY PROGRAMS LAB BLOOD ORDERABLES Final R esult [facility]
[address] [place] [address], [place] [phone] from Last 3 Months or Most Recently Relevant to Health Maintenance Insurance [id number] MEDIC[place] ADVANTAGE AETNA Care Teams Technical Assistance Consultant Relationship Specialty Start Date End Date Jorge Marcum MD [address] [facility] [address] [place] [address] PCP - General Family Medicine 08/04/22
--- OUTSIDE RECORDS SUMMARY | 2025-03-12 11:14 | XMS_ITS | Encounter Summary ---
Author Organization [facility] Address [address] [place] [id number] Care Team Providers Care Cooker Sulfite Name Role Phone Jorge Marcum MD Primary Care Provider + [phone] Syed Bryan MD Unavailable [phone] Shelli Venegas Unavailable Da Lorenzo MD Unavailable [phone] Encounter Details Date Type Department Care Team (Late st Contact Info) Description 03/31/2024 Orders Only External Location [address] [place] [address] Pebbles Donaldson, TECHNOLOGY DIRECTOR [address] [place] [id number] Social History Tobacco Use Types Packs/Day Years [...] Description 11/27/2026 10:30 AM EDT Office Visit [place] [facility] [address], [address] [place] [address] Lana Belle MD [address] [place] [address] documented as of this encounter Procedures Procedure Name Priority Date/Time Associated Diagnosis Comments CT OUTSIDE IMAGES 03/31/2024 10:55 AM EDT documented in this encounter Results * CT OUTSIDE IMAGES (03/31/2024 10:55 AM EDT) Anatomical Region Laterality Modality Computed Tomogra phy 03/31/2024 10:5 5 AM EDT us Pebbles Tadeo Mendoza TECHNOLOGY DIRECTOR IMG CT PROCEDURES Final Resu lt documented in this encounter Visit Diagnoses Not on filedocumented in this encounter Care Teams Cooker Sulfite Relationship Specialty Start Date End Date Jorge Marcum MD [facility] [address] [phone] PCP - General 05/16/24 Syed Bryan MD [facility] [place] [address] [place], [place] [address] Referring Physician 05/16/24 Shelli Venegas [address] [place] [address] [address] [place] [address] Melting Furnace Skimmer 05/16/24 Da Lorenzo MD [facility]0 [place] [address] [address] [place], [place] [address] Referring Physician Cardiology 06/06/24 documented as of this encounter
== END 2025-03-09 23:59 ==
LOC: LAB.DROPOF 03-12 11:04
PROVIDERS: PCP Family Medicine; Visit Provider Family Medicine
DX: E11.9 Type 2 diabetes mellitus without complications (principal)
CPT/HCPCS: 82043; 82570

== ENCOUNTER 2025-03-16 10:16 | Outpatient (CLI) | payer OTHER, MEDICARE, SELFPAY ==
--- OUTSIDE RECORDS SUMMARY | 2023-12-06 09:30 | XMS_ITS ---
Author [facility] Address [address] [id number] Care Team Providers Care Water Filterer Name Role Phone Jorge Marcum Primary Care Provider Allergies No Known Allergies Results Component Value [...] [address] [place], [place] [id number] 12/06/2023 Jorge Marcum Type 2 diabetes nedra [...] * Ryan WILDERDOB:1950 ( 74 yo M)Acc No.[id number]:12/06/2023 Progress Notes Patient: Ryan CARABALLO Provider: Norman Marcum M.D. :1950 A ge:73 Y S ex:Male Date:12/06/2023 Address:[address] [place] [address] [place], [id number] Subjective: * Chief Complaints: * 1 . [...] Polyps, Sleep Apnea, TIA, 2022, treated at [facility]. * Surgical History: H ernia X 3 , LT Knee , Rectal Fistula Repair , Percutaneous Coronary Intervention, Stents x 2 12/2010, CABG - 5 vesel bypasses 10/08/2011, Cholecystectomy [facility] Dr. Nick 12/03/2020, Colonoscopy 2017. * Hospitalization/Major Diagno stic Procedure: H eart Surgery- [place] 10/08/2011, Neck pain- [facility] ER 10/15/2014, Gall Bladder Pain- [facility] ER 05/23/2020, Cholecystitis and Cholecystectomy- [facility] 11/30-. * Family History: F ather: 80 [...] G 2211 Complex e/[place], [address] GLUCOSE TEST, 83666 CAPILLARY BLOOD DRAW, 25047 GLYCATED HEMOGLOBIN TEST, Modifiers: QW * Follow Up: 3 Months * Images: Billing Information: * Visit Code: 86132 Office Visit, Est Pt., Level 4. * Procedure Codes: G2211 Complex e/[place]. [address] GLUCOSE TEST. 87841 CAPILLARY BLOOD DRAW. 23055 GLYCATED HEMOGLOBIN TEST. Modifiers: QW * Electronic signature of Steff Marcum MD on 03/16/2025 at 10:19 AM EDT Sign off status: Pending * Provider: Norman Marcum M.D. Date: 0 12/06/2023 Generated for Leida george/Katelynn/Theaitting on: 1 10:19 AM EDT History and Physical Notes * [...]
--- OUTSIDE RECORDS SUMMARY | 2024-03-13 06:30 | XMS_ITS ---
Author Organization [facility] Address [address] [id number] Care Team Providers Care Airplane Engineer Name Role Phone Jorge Marcum Primary Care Provider Allergies No Known Allergies Results Component Value Reference Range Notes Glucose (In-House) Reviewed date:03/13/2024 11:28:25 AM Interpretation: Performing Lab: Notes/Report: blood glucose 237 74 - 106 mg/dL Glycohemoglobin A1c (in hous e) Reviewed date:03/13/2024 11:28:18 AM Interpretation: Performing Lab: Notes/Report: glycohemoglobin 7.6% 5 - 6.5 % P-Comprehensive Metabolic Pa omkar (CMP) Reviewed date:03/14/2024 10:07:56 AM Interpretation:gluc 196 Performing Lab: Notes/Report: Test performed by [facility], [facility] [address] [place] [address] , [address], [place] [address] Vazquez Perry MD, Highway Painter CLIA: [id number] Sodium 139 135-145 mmol/L Potassium 4.0 3.5-5.3 mmol/L Chloride 103 97-108 mmol/L CO2 30 22-32 mmol/L Glucose 196 65-99 mg/dL BUN 14 8-23 mg/dL Creatinine 0.94 0.70-1.30 mg/dL Calcium 9.2 8.6-10.4 mg/dL eGFR by Creatinine 85 >59 mL/min/1.73m2 Protein 6.5 6.0-8.3 g/dL Albumin 4.1 3.5-5.3 g/dL Alkaline Phosphatase 79 40-129 IU/L ALT (SGPT) 14 <5-55 IU/L AST (SGOT) 17 <5-46 IU/L Bilirubin, Total 0.8 <0.2-1.2 mg/dL A/G Ratio 1.7 1.1-2.5 P-Lipid Panel Reviewed date:03/14/2024 10:07:56 AM Interpretation: Normal Performing Lab: Notes/Report: Test performed by [facility], [address] , [facility], [place] [address] Vazquez Perry MD, Highway Painter CLIA: [id number] Cholesterol 135 <200 mg/dL Triglycerides 96 <150 mg/dL HDL Cholesterol 52 >39 mg/dL Cholesterol / HDL Ratio 2.60 0.00-4.99 Ratio Non-HDL Cholesterol 83 <130 mg/dL LDL Cholesterol (Calculation) 64 <130 mg/dL LDL Cholesterol Levels* Less than 100 mg/dL Optimal 100 to 129 mg/dL Near Optimal/ Above Optimal 130 to 159 mg/dL Borderline High 160 to 189 mg/dL High 190 mg/dL and above Very High * Categories as recommended by the 2004 ATPIII guidelines LDL/HDL Ratio 1.2 <3.3 Ratio LDL Cholesterol Patient History Test Date: 03/13/2024 LDL Results: 64 Units: mg/dL % Change: - P-PSA Reviewed date:03/14/2024 10:07:56 AM Interpretation: Normal Performing Lab: Notes/Report: Test performed by [facility] [address] [place] [address] , [address], [place] [address] Vazquez Perry MD, Highway Painter CLIA: [id number] PSA 0.37 <4.00 ng/mL Please note this is an ultrasensitive PSA assay with a lower limit of detection of 0.014 ng/mL. This test is performed by the Emani ECLIA methodology. Values obtained with different assay methods or kits cannot be directly compared. P-TSH reflex to FT4 Reviewed date:03/14/2024 10:07:56 AM Interpretation: Normal Performing Lab: Notes/Report: Test performed by [facility] [address] [place] [address] , [place] [address] Vazquez Perry MD, Highway Painter CLIA: [id number] TSH reflex to FT4 1.24 0.43-5.25 mU/L P-Microalbumin/Creatinine, R andom Urine Sample Reviewed date:03/14/2024 10:07:56 AM Interpretation: Normal Performing Lab: Notes/Report: Test performed by [facility] [address] [place] [address] , [address], [place] [address] Vazquez Perry MD, Highway Painter CLIA: [id number] Albumin/Creatinine Ratio, Urine See Comment 0-30 ug/mg Unable to calculate Urine Albumin/Creatinine Ratio when urine creatinine or urine albumin fall outside established reportable range. Microalbumin, Urine, Random <0.3 Creatinine, Urine 52.2 P-Vitamin D 25-Hydroxy Reviewed date:03/14/2024 10:07:56 AM Interpretation: Normal Performing Lab: Notes/Report: Test performed by [facility] [address] [place] [address] , [address], [place] [address] Vazquez Perry MD, Highway Painter CLIA: [id number] Vitamin D 25-Hydroxy 52.6 30.0-100.0 ng/mL Interpretation of Vitamin D 25 OH: < 20 ng/mL - Deficiency 20 - 29 ng/mL - Insufficiency 30 - 100 ng/mL - Sufficiency > 100 ng/mL - Super-therapeutic- toxicity may occur above this level. Clinical correlation required. REASON FOR VISIT 3 month check Medications Medication SIG (Take, Route, Frequency, Duration) Notes Start Date End Date Status Xarelto 20 MG 1 tablet Orally once daily in the evening; Duration: 90 days Active Atorvastatin Calcium 80 MG 1 tablet Orally Once a day Active Synjardy XR 12.5-1000 MG TAKE 2 TABLETS ONCE DAILY Active Lisinopril 5 MG 1 tablet Orally Once a day Active Januvia 100 MG 1 tablet Orally Once a day Active Sildenafil Citrate 20 MG TAKE 5 TABLETS BY MOUTH ONCE A DAY NEEDED Active Meloxicam 15 MG 1 tablet Orally Once a day; Duration: 90 days Active Gabapentin 300 MG 1 cap(s) orally 2 times a day as needed 12/23/2023 Active Accu-Chek Jessica Plus - TEST 3 TIMES A DAY diagnosis E11.9 Active Aspirin Adult Low Dose 81 MG 1 tab(s) orally once a day Active Accu-Chek Softclix Lancets 1 LANCET FINGERSTICK TEST TWICE A DAY OR DIRECTED 06/20/2018 Active OneTouch Ultra 1 TEST STRIP(S) FINGERSTICK TEST 3 TIMES A DAY OR DIRECTED; Duration: 90 DAYS 04/08/2020 Active Vital Signs Blood pressure systolic 120 mm Hg 03/13/20 24 Blood pressure diastolic 72 mm Hg 024 Heart Rate 75 /min 03/13/2024 Height 74 in 03/13/2024 Weight 233.8 lbs 03/13/2024 BMI 30.01 kg/m2 03/13/2024 Encounters Encounter Location Date Provider [facility] [address] [phone] 03/13/2024 Jorge Marcum Type 2 diabetes nedra itus without complication E11.9 ; Essential hypertension I10 ; Hyperlipidemia, unspecified hyperlipidemia type E78.5 ; Vitamin D deficiency E55.9 and Prostate cancer screening Z12.5 Assessments Encounter Date Diagnosis (ICD Code) Assessment Notes Treatment Notes Treatment Clinical Notes Section Notes 03/13/2024 Type 2 diabetes mellitus without complication (ICD-10 - E11.9) 03/13/2024 Essential hypertension (ICD-10 - I10) 03/13/2024 Hyperlipidemia, unspecified hyperlipidemia type (ICD-10 - E78.5) 03/13/2024 Vitamin D deficiency (ICD-10 - E55.9) 03/13/2024 Prostate cancer screening (ICD-10 - Z12.5) Plan Of Treatment Medication Medication Name Sig Start Date Stop Date Notes Atorvastatin Calcium 80 MG 1 tablet Orally Once a day Synjardy XR 12.5-1000 MG TAKE 2 TABLETS ONCE DAILY Lisinopril 5 MG 1 tablet Orally Once a day Januvia 100 MG 1 tablet Orally Once a day Next Appt Details Follow Up: 4 Months, Reason: Progress Notes * Ryan WILDERDOB:1950 ( 74 yo M)Acc No.[id number]:03/13/2024 Progress Notes Patient: Ryan CARABALLO Provider: Norman Marcum M.D. :1950 A ge:73 Y S ex:Male Date:03/13/2024 Address:[address] [place] [address], [id number] Subjective: * Chief Complaints: * 1 . 3 month check. * HPI: E ndocrinology: 73 year old male presents with c/o Recent Blood Sugars P t here for 3 mo f/u on DM 2. * ROS: D ERMATOLOGY: no R travon. n o H deepthi. G ASTROENTEROLOGY: no N ausea. n o V omiting. U ROLOGY: no D ifficulty urinating. n o B lood in urine. * Medical History: C oronary Artery Disease, s/p CABG, Type 2 Diabetes, Hypertension, Hyperlipidemia, Hypertriglyceridemia, Colon Polyps, Sleep Apnea, TIA, 2022, treated at [facility]. * Surgical History: H ernia X 3 , LT Knee , Rectal Fistula Repair , Percutaneous Coronary Intervention, Stents x 2 12/2010, CABG - 5 vesel bypasses 10/08/2011, Cholecystectomy [facility] Dr. Nick 12/03/2020, Colonoscopy 2017. * Hospitalization/Major Diagno stic Procedure: H eart Surgery- [place] 10/08/2011, Neck pain- [facility] ER 10/15/2014, Gall Bladder Pain- [facility] ER 05/23/2020, Cholecystitis and Cholecystectomy- [facility] 11/30-. * Family History: F ather: [...] TIMES A DAY OR DIRECTED , Taking Accu-Chek Jessica Plus - TEST 3 TIMES A DAY , Notes to Pharmacist: diagnosis E11.9, Taking Aspirin Adult Low Dose 81 MG Tablet Delayed Release 1 tab(s) orally once a day , Taking Lisinopril 5 MG Tablet 1 tablet Orally Once a day , Taking Meloxicam 15 MG Tablet 1 tablet Orally Once a day , Taking Atorvastatin Calcium 80 MG Tablet 1 tablet Orally Once a day , Taking Gabapentin 300 MG Capsule 1 cap(s) orally 2 times a day as needed , Taking Synjardy XR 12.5-1000 MG Tablet Extended Release 24 Hour TAKE 2 TABLETS ONCE DAILY , Taking Sildenafil Citrate 20 MG Tablet TAKE 5 TABLETS BY MOUTH ONCE A DAY NEEDED , Taking Januvia 100 MG Tablet 1 tablet Orally Once a day , Taking Xarelto 20 MG Tablet 1 tablet Orally once daily in the evening , Medication List reviewed and reconciled with the patient * Allergies: N .K.D.A. Objective: * Vitals: W t:233.8, Temp:98.0, BP:120/72, HR:75, Nurse:TAVON, Ht: 74, BMI:30.01. * Examination: G eneral Examination: General Appearance: N AD. H eart: R SR. L ungs:?clear to auscultation. P eripheral pulses: n ormal (2+) bilaterally. E xtremities:? no leg edema. Assessment: * Assessment: 1. T ype 2 diabetes mellitus without complication - E11.9 (Primary) 2 . E ssential hypertension - I10 3 . H yperlipidemia, unspecified hyperlipidemia type - E78.5 4 . V itamin D deficiency - E55.9 5 . P rostate cancer screening - Z12.5 Plan: * Treatment: Value Reference Range A /G Ratio 1.7 1.1-2.5 - * A lbumin 4.1 3.5-5.3 - g/dL * A lkaline Phosphatase 79 40-129 - IU/L * A LT (SGPT) 14 <5-55 - IU/L * A ST (SGOT) 17 <5-46 - IU/L * B ilirubin, Total 0.8 <0.2-1.2 - mg/dL * B UN 14 8-23 - mg/dL * C alcium 9.2 8.6-10.4 - mg/dL * C hloride 103 97-108 - mmol/L * C O2 30 22-32 - mmol/L * C reatinine 0.94 0.70-1.30 - mg/dL * G lucose 196 H 65-99 - mg/dL * P otassium 4.0 3.5-5.3 - mmol/L * S odium 139 135-145 - mmol/L * P rotein 6.5 6.0-8.3 - g/dL * e GFR by Creatinine 85 >59 - mL/min/1.73m2 * Danielle Parsons 03/14/2024 10:07 :40 AM >See phone encounter ?LAB: P-TSH reflex to FT4 (Collection Date & Time - 03/13/2024 09:45 AM)? Normal* Value Reference Range T SH reflex to FT4 1.24 0.43-5.25 - mU/L * Danielle Parsons 03/14/2024 10:07 :40 AM >See phone encounter ?LAB: P-Microalbumin/Creatinine, Random Urine Sample (Collection Date & Time - 03/13/2024 09:45 AM)?Normal* Value Reference Range A lbumin/Creatinine Ratio, Urine See Comment L 0-30 - ug /mg * C reatinine, Urine 52.2 - mg/dL * M icroalbumin, Urine, Random <0.3 - mg/dL * Danielle Parsons 03/14/2024 10:07 :40 AM >See phone encounter ?LAB: Glucose (In-House) (Collection Date & Time - 03/13/2024)* Value Reference Range b lood glucose 237 74 - 106 mg/dL * Sai Quinterosira 03/13/2024 11:09:0 4 AM > , Provider reviewed results while patient in office. ?LAB: Glycohemoglobin A1c (in house) (Collection Date & Time - 03/13/2024)* Value Reference Range g lycohemoglobin 7.6% 5 - 6.5 % * AldairLexi 03/13/2024 11:09:2 6 AM > , Provider reviewed results while patient in office. 2.?Essential hypertension? Continue Lisinopril Tablet, 5 MG, 1 tablet, Orally, Once a day.?LAB: P-Comprehensive Metabolic Panel (CMP) (Collection Date & Time - 03/13/2024 09:45 AM)?gluc 196* Value Reference Range A /G Ratio 1.7 1.1-2.5 - * A lbumin 4.1 3.5-5.3 - g/dL * A lkaline Phosphatase 79 40-129 - IU/L * A LT (SGPT) 14 <5-55 - IU/L * A ST (SGOT) 17 <5-46 - IU/L * B ilirubin, Total 0.8 <0.2-1.2 - mg/dL * B UN 14 8-23 - mg/dL * C alcium 9.2 8.6-10.4 - mg/dL * C hloride 103 97-108 - mmol/L * C O2 30 22-32 - mmol/L * C reatinine 0.94 0.70-1.30 - mg/dL * G lucose 196 H 65-99 - mg/dL * P otassium 4.0 3.5-5.3 - mmol/L * S odium 139 135-145 - mmol/L * P rotein 6.5 6.0-8.3 - g/dL * e GFR by Creatinine 85 >59 - mL/min/1.73m2 * Danielle Parsons 03/14/2024 10:07 :40 AM >See phone encounter 3.?Hyperlipidemia, unspecified hyperlipidemia type? Continue Atorvastatin Calcium Tablet, 80 MG, 1 tablet, Orally, Once a day.?LAB: P-Comprehensive Metabolic Panel (CMP) (Collection Date & Time - 03/13/2024 09:45 AM)?gluc 196* Value Reference Range A /G Ratio 1.7 1.1-2.5 - * A lbumin 4.1 3.5-5.3 - g/dL * A lkaline Phosphatase 79 40-129 - IU/L * A LT (SGPT) 14 <5-55 - IU/L * A ST (SGOT) 17 <5-46 - IU/L * B ilirubin, Total 0.8 <0.2-1.2 - mg/dL * B UN 14 8-23 - mg/dL * C alcium 9.2 8.6-10.4 - mg/dL * C hloride 103 97-108 - mmol/L * C O2 30 22-32 - mmol/L * C reatinine 0.94 0.70-1.30 - mg/dL * G lucose 196 H 65-99 - mg/dL * P otassium 4.0 3.5-5.3 - mmol/L * S odium 139 135-145 - mmol/L * P rotein 6.5 6.0-8.3 - g/dL * e GFR by Creatinine 85 >59 - mL/min/1.73m2 * Danielle Parsons 03/14/2024 10:07 :40 AM >See phone encounter ?LAB: P-Lipid Panel (Collection Date & Time - 03/13/2024 09:45 AM)?Normal* Value Reference Range C holesterol / HDL Ratio 2.60 0.00-4.99 - Ratio * C holesterol 135 <200 - mg/dL * H DL Cholesterol 52 >39 - mg/dL * L DL Cholesterol (Calculation) 64 <130 - mg/d L * L DL/HDL Ratio 1.2 <3.3 - Ratio * N on-HDL Cholesterol 83 <130 - mg/dL * T riglycerides 96 <150 - mg/dL * Danielle Parsons 03/14/2024 10:07 :40 AM >See phone encounter 4.?Vitamin D deficiency?LAB: P-Vitamin D 25-Hydroxy (Collection Date & Time - 03/13/2024 09:45 AM)? Normal* Value Reference Range V itamin D 25-Hydroxy 52.6 30.0-100.0 - ng/mL * Danielle Parsons 03/14/2024 10:07 :40 AM >See phone encounter 5.?Prostate cancer screening?LAB: P-PSA (Collection Date & Time - 03/13/2024 09:45 AM)?Normal* Value Reference Range P SA 0.37 <4.00 - ng/mL * Danielle Parsons 03/14/2024 10:07 :40 AM >See phone encounter * Procedure Codes: G 2211 Complex e/[place], [address] GLUCOSE TEST, [address] GLYCATED HEMOGLOBIN TEST, Modifiers: QW * Follow Up: 4 Months * Images: Billing Information: * Visit Code: 25192 Office Visit, Est Pt., Level 4. * Procedure Codes: G2211 Complex e/[place]. [address] GLUCOSE TEST. 73584 GLYCATED HEMOGLOBIN TEST. Modifiers: QW * Electronic signature of Steff Marcum MD on 03/16/2025 at 10:19 AM EDT Sign off status: Pending * Provider: Norman Marcum M.D. Date: 0 03/13/2024 Generated for Leida george/Katelynn/Sindysmitting on: 1 10:19 AM EDT History and Physical Notes * HPI (History of Present Illness) Category Sub-Category Detail Notes Category Not es Endocrinology Recent Blood Sugars Pt here for 3 mo f/u on DM 2 Examination Category Sub-Category Detail Notes Category Not es General Examination Heart: RSR Lungs: clear to auscultatio n Extremities: no leg edema General Appearance: NAD Peripheral pulses: normal (2+) bilatera lly
--- OUTSIDE RECORDS SUMMARY | 2024-05-24 07:15 | XMS_ITS ---
Author Organization [place] Address 1210 [facility] [address] [phone] Care Team Providers Care Lawn Care Professional Name Role Phone Jorge Marcum Primary Care Provider Allergies No Known Allergies REASON FOR VISIT sore throat and cough Encounters Encounter Location Date Provider Diagnosis [place] [facility] [address] [phone] 05/24/2024 Jorge Marcum Plan Of Treatment No Information Progress Notes * Ryan WILDERDOB:1950 ( 74 yo M)Acc No.[id number]:05/24/2024 Progress Notes Patient: Ryan CARABALLO Provider: Norman Marcum M.D. :1950 A ge:73 Y S ex:Male Date:05/24/2024 Address:[facility] E [facility] Subjective: * Chief Complaints: * 1 . [...] Polyps, Sleep Apnea, TIA, 2022, treated at [facility]. * Surgical History: H ernia X 3 , LT Knee , Rectal Fistula Repair , Percutaneous Coronary Intervention, Stents x 2 12/2010, CABG - 5 vesel bypasses 10/08/2011, Cholecystectomy [facility] Dr. Nick 12/03/2020, Colonoscopy 2017. * Hospitalization/Major Diagno stic Procedure: H eart Surgery- [place] 10/08/2011, Neck pain- [facility] ER 10/15/2014, Gall Bladder Pain- [facility] ER 05/23/2020, Cholecystitis and Cholecystectomy- [facility] 11/30-. * Family History: F ather: [...] of Steff Marcum MD on 03/16/2025 at 10:18 AM EDT Sign off status: Pending * Provider: Norman Marcum M.D. Date: 07/25/2023 Generated for Leida george/Katelynn/Theaitting on: 10:18 AM EDT History and Physical Notes * HPI (History of Present Illness) Category Sub-Category Detail Notes Category Not es ENT/respiratory cough
--- OUTSIDE RECORDS SUMMARY | 2024-07-13 05:15 | XMS_ITS ---
[facility] [address] [phone] Care Team Providers Care Global Sales Executive Name Role Phone Jorge Marcum Primary Care Provider Allergies No Known Allergies Results Component Value Reference Range Notes Glucose (In-House) Reviewed date:07/14/2024 10:19:47 AM Interpretation:186 Performing Lab: Notes/Report: 186 blood glucose 186 74 - 106 mg/dL Glycohemoglobin A1c (in hous e) Reviewed date:07/14/2024 10:19:47 AM Interpretation:7.8% Performing Lab: Notes/Report: 7.8% glycohemoglobin 7.8% 5 - 6.5 % P-Basic Metabolic Panel (BMP ) Reviewed date:07/14/2024 10:19:47 AM Interpretation:gluc 165 Performing Lab: Notes/Report: Test performed by [facility] [address] [place] [address] , [address], [place] [address] Vazquez Perry MD, Assistant Store Manager CLIA: [id number] Sodium 143 135-145 mmol/L Potassium 4.5 3.5-5.3 mmol/L Chloride 104 97-108 mmol/L CO2 29 22-32 mmol/L Glucose 165 65-99 mg/dL BUN 11 8-23 mg/dL Creatinine 0.90 0.70-1.30 mg/dL Calcium 9.2 8.6-10.4 mg/dL eGFR by Creatinine 90 >59 mL/min/1.73m2 P-Vitamin D 25-Hydroxy Reviewed date:07/14/2024 10:19:47 AM Interpretation:51.2 Performing Lab: Notes/Report: Test performed by [facility] [address] [facility] , [address], [place] [address] Vazquez Perry MD, Assistant Store Manager CLIA: [id number] Vitamin D 25-Hydroxy 51.2 30.0-100.0 ng/mL Interpretation of Vitamin D 25 OH: < 20 ng/mL - Deficiency 20 - 29 ng/mL - Insufficiency 30 - 100 ng/mL - Sufficiency > 100 ng/mL - Super-therapeutic- toxicity may occur above this level. Clinical correlation required. REASON FOR VISIT 4 Month Check Up Medications Medication SIG (Take, Route, Frequency, Duration) Notes Start Date End Date Status Januvia 100 MG 1 tablet Orally Once a day Active Synjardy XR 12.5-1000 MG 2 tablets with breakfast Orally Once a day Active Carvedilol 3.125 MG 1 tablet with food Orally Twice a day Active Atorvastatin Calcium 80 MG 1 tablet Orally Once a day; Duration: 90 days Active DULoxetine HCl 30 MG 1 capsule Orally Once a day; Duration: 90 days 03/31/2024 Active Meloxicam 15 MG 1 tablet Orally Once a day; Duration: 90 days Active Gabapentin 300 MG 1 cap(s) orally 2 times a day as needed 12/23/2023 Active Sildenafil Citrate 20 MG TAKE 5 TABLETS BY MOUTH ONCE A DAY NEEDED Active Xarelto 20 MG 1 tablet Orally once daily in the evening; Duration: 90 days Active Entresto 24-26 MG 1 tablet Orally Twice a day; Duration: 30 day(s) Active Aspirin Adult Low Dose 81 MG 1 tab(s) orally once a day Active Accu-Chek Softclix Lancets 1 LANCET FINGERSTICK TEST TWICE A DAY OR DIRECTED 06/20/2018 Active OneTouch Ultra 1 TEST STRIP(S) FINGERSTICK TEST 3 TIMES A DAY OR DIRECTED; Duration: 90 DAYS 04/08/2020 Active Accu-Chek Jessica Plus - TEST 3 TIMES A DAY diagnosis E11.9 Active Vital Signs Blood pressure systolic 120 mm Hg 07/13/19 25 Blood pressure diastolic 70 mm Hg 025 Height 74 in 07/13/2024 Weight 235.8 lbs 07/13/2024 BMI 30.27 kg/m2 07/13/2024 Encounters Encounter Location Date Provider Diagnosis [facility] [address] [place], [place] [phone] 07/13/2024 Jorge Marcum Type 2 diabetes nedra itus without complication E11.9 ; Essential hypertension I10 and Vitamin D deficiency E55.9 Assessments Encounter Date Diagnosis (ICD Code) Assessment Notes Treatment Notes Treatment Clinical Notes Section Notes 07/13/2024 Type 2 diabetes mellitus without complication (ICD-10 - E11.9) 07/13/2024 Essential hypertension (ICD-10 - I10) 07/13/2024 Vitamin D deficiency (ICD-10 - E55.9) Plan Of Treatment Medication Medication Name Sig Start Date Stop Date Notes Januvia 100 MG 1 tablet Orally Once a day Synjardy XR 12.5-1000 MG 2 tablets with breakfast Orally Once a day Carvedilol 3.125 MG 1 tablet with food O rally Twice a day Next Appt Details Follow Up: 4 Months, Reason: Progress Notes * Ryan WILDERDOB:1950 ( 74 yo M)Acc No.[id number]:07/13/2024 Progress Notes Patient: Ryan CARABALLO Provider: Norman Marcum M.D. :1950 A ge:73 Y S ex:Male Date:07/13/2024 Address:[address] [place] [address] [place], [id number] Subjective: * Chief Complaints: * 1 . 4 Month Check Up. * HPI: C ardiology: 73 year old male presents with c/o Blood Pressure Elevated P t here to f/u on hypertension, states he is doing well and does not have any concerns. E ndocrinology: c/o Recent Blood Sugars P t here to f/u on DM 2, pt states that he does not check his blood sugar at home. * ROS: D ERMATOLOGY: no R travon. n o H deepthi. G ASTROENTEROLOGY: no N ausea. n o V omiting. U ROLOGY: no D ifficulty urinating. n o B lood in urine. * Medical History: C oronary Artery Disease, s/p CABG, Type 2 Diabetes, Hypertension, Hyperlipidemia, Hypertriglyceridemia, Colon Polyps, Sleep Apnea, TIA, 2022, treated at [facility]. * Surgical History: H ernia X 3 , LT Knee , Rectal Fistula Repair , Percutaneous Coronary Intervention, Stents x 2 12/2010, CABG - 5 vesel bypasses 10/08/2011, Cholecystectomy [facility] Dr. Nick 12/03/2020, Colonoscopy 2018. * Hospitalization/Major Diagno stic Procedure: H eart Surgery- [place] 10/08/2011, [facility]- [facility] [...] Sexually active: yes. * Medications: T aking Entresto 24-26 MG Tablet 1 tablet Orally Twice a day , Taking Carvedilol 3.125 MG Tablet 1 tablet with food Orally Twice a day , Taking Accu-Chek Softclix Lancets 1 LANCET FINGERSTICK TEST TWICE A DAY OR DIRECTED , Taking OneTouch Ultra 1 TEST STRIP(S) FINGERSTICK TEST 3 TIMES A DAY OR DIRECTED , Taking Accu-Chek Jessica Plus - TEST 3 TIMES A DAY , Notes to Pharmacist: diagnosis E11.9, Taking Aspirin Adult Low Dose 81 MG Tablet Delayed Release 1 tab(s) orally once a day , Taking Gabapentin 300 MG Capsule 1 cap(s) orally 2 times a day as needed , Taking Sildenafil Citrate 20 MG Tablet TAKE 5 TABLETS BY MOUTH ONCE A DAY NEEDED , Taking Xarelto 20 MG Tablet 1 tablet Orally once daily in the evening , Taking DULoxetine HCl 30 MG Capsule Delayed Release Particles 1 capsule Orally Once a day , Taking Synjardy XR 12.5- 1000 MG Tablet Extended Release 24 Hour 2 tablets with breakfast Orally Once a day , Taking Meloxicam 15 MG Tablet 1 tablet Orally Once a day , Taking Atorvastatin Calcium 80 MG Tablet 1 tablet Orally Once a day , Taking Januvia 100 MG Tablet 1 tablet Orally Once a day , Discontinued Lisinopril 5 MG Tablet TAKE 1 TABLET ONCE DAILY , Medication List reviewed and reconciled with the patient * Allergies: N .K.D.A. Objective: * Vitals: W t:235.8, Temp:97.8, BP:120/70, Nurse:lianna, Ht: 74, BMI:30.27. * Examination: G eneral Examination: General Appearance: N AD. H eart: R SR. L ungs:?clear to auscultation. P eripheral pulses: n ormal (2+) bilaterally. E xtremities:? no leg edema. Assessment: * Assessment: 1. T ype 2 diabetes mellitus without complication - E11.9 (Primary) 2 . E ssential hypertension - I10 3 . V itamin D deficiency - E55.9 Plan: * Treatment: Value Reference Range B UN 11 8-23 - mg/dL * C alcium 9.2 8.6-10.4 - mg/dL * C hloride 104 97-108 - mmol/L * C O2 29 22-32 - mmol/L * C reatinine 0.90 0.70-1.30 - mg/dL * G lucose 165 H 65-99 - mg/dL * P otassium 4.5 3.5-5.3 - mmol/L * S odium 143 135-145 - mmol/L * e GFR by Creatinine 90 >59 - mL/min/1.73m2 * Nichole Ludwig 07/14/2024 10:1 6:43 AM >See phone encounter ?LAB: Glucose (In-House) (Collection Date & Time - 07/13/2024)?186* Value Reference Range b lood glucose 186 74 - 106 mg/dL * Sobia Villalobos 07/13/2024 10:5 7:29 AM > Nichole Ludwig 07/14/2024 10:16:43 AM >See phone encounter ?LAB: Glycohemoglobin A1c (in house) (Collection Date & Time - 07/13/2024)? 7.8%* Value Reference Range g lycohemoglobin 7.8% 5 - 6.5 % * Sobia Villalobos 07/13/2024 10:5 7:51 AM > OzielNichole klein 07/14/2024 10:16:43 AM >See phone encounter 2.?Essential hypertension? Continue Carvedilol Tablet, 3.125 MG, 1 tablet with food, Orally, Twice a day.?LAB: P-Basic Metabolic Panel (BMP) (Collection Date & Time - 07/13/2024 09:01 AM)?gluc 165* Value Reference Range B UN 11 8-23 - mg/dL * C alcium 9.2 8.6-10.4 - mg/dL * C hloride 104 97-108 - mmol/L * C O2 29 22-32 - mmol/L * C reatinine 0.90 0.70-1.30 - mg/dL * G lucose 165 H 65-99 - mg/dL * P otassium 4.5 3.5-5.3 - mmol/L * S odium 143 135-145 - mmol/L * e GFR by Creatinine 90 >59 - mL/min/1.73m2 * Nichole Ludwig 07/14/2024 10:1 6:43 AM >See phone encounter 3.?Vitamin D deficiency?LAB: P-Vitamin D 25-Hydroxy (Collection Date & Time - 07/13/2024 09:01 AM)? 51.2* Value Reference Range V itamin D 25-Hydroxy 51.2 30.0-100.0 - ng/mL * Nichole Ludwig 07/14/2024 10:1 6:43 AM >See phone encounter * Procedure Codes: G 2211 Complex e/[place], [address] GLUCOSE TEST, 5[address]12 GLYCATED HEMOGLOBIN TEST, Modifiers: QW , 3051F HG A1C>EQUAL 7.0%<8.0%, 3074F SYST BP LT 130 MM HG, 3078F DIAST BP < 80 MM HG * Follow Up: 4 Months * Images: Billing Information: * Visit Code: 52679 Office Visit, Est Pt., Level 4. * Procedure Codes: G2211 Complex e/[place]. [address] GLUCOSE TEST. 22972 GLYCATED HEMOGLOBIN TEST. Modifiers: QW 3051F HG A1C>EQUAL 7.0%<8.0%. 3074F SYST BP LT 130 MM HG. 3078F DIAST BP < 80 MM HG. * Electronic signature of Steff Marcum MD on 03/16/2025 at 10:19 AM EDT Sign off status: Pending * Provider: Norman Marcum M.D. Date: 0 07/13/2024 Generated for Leida george/Katelynn/Yessi on: 1 10:19 AM EDT History and Physical Notes * HPI (History of Present Illness) Category Sub-Category Detail Notes Category Not es Endocrinology Recent Blood Sugars Pt here to f /u on DM 2, pt states that he does not check his blood sugar at home Cardiology Blood Pressure Elevated Pt here to f/u on hypertension, states he is doing well and does not have any concerns Examination Category Sub-Category Detail Notes Category Not es General Examination Heart: RSR Lungs: clear to auscultatio n Extremities: no leg edema General Appearance: NAD Peripheral pulses: normal (2+) bilatera lly
--- OUTSIDE RECORDS SUMMARY | 2024-11-09 05:15 | XMS_ITS ---
Author Organization [place] Address [facility] [address] [place] [phone] Care Team Providers Care Bricklayer Helper Name Role Phone Jorge Marcum Primary Care Provider Allergies No Known Allergies REASON FOR VISIT 4 month check Encounters Encounter Location Date Provider Diagnosis [place] [address] [phone] 11/09/2024 Jorge Marcum Plan Of Treatment No Information Progress Notes * Ryan WILDERDOB:1950 ( 74 yo M)Acc No.[id number]:11/09/2024 Progress Notes Patient: Ryan CARABALLO Provider: Norman Marcum M.D. :1950 A ge:74 Y S ex:Male Date:11/09/2024 Address:[address] [facility], [place], [id number] Subjective: * Chief Complaints: * 1 [...] Polyps, Sleep Apnea, TIA, 2022, treated at [facility]. * Surgical History: H ernia X 3 , LT Knee , Rectal Fistula Repair , Percutaneous Coronary Intervention, Stents x 2 12/2010, CABG - 5 vesel bypasses 10/08/2011, Cholecystectomy [facility] Dr. Nick 12/03/2020, Colonoscopy 2017. * Hospitalization/Major Diagno stic Procedure: H eart Surgery- [place] 10/08/2011, Neck pain- [facility] ER 10/15/2014, Gall Bladder Pain- [facility] ER 05/23/2020, Cholecystitis and Cholecystectomy- [facility] 11/30-. * Family History: F ather: [...] * Provider: Norman Marcum M.D. Date: 0 11/09/2024 Generated for Leida george/Katelynn/Theaitting on: 10:18 AM EDT
--- OUTSIDE RECORDS SUMMARY | 2025-03-16 10:18 | XMS_ITS | Encounter Summary ---
Author Organization [facility] Address [address] [place] [address] Care Team Providers Care Physical Therapy Nurse Name Role Phone Jorge Marcum MD Primary Care Provider + [phone] Syed Bryan MD Unavailable [phone] Shelli Venegas Unavailable Da Lorenzo MD Unavailable [phone] Encounter Details Date Type Department Care Team (Late st Contact Info) Description 04/28/2024 Orders Only External Location [address] [place] [address] Provider, External Social History Tobacco Use Types [...] Description 11/27/2026 10:30 AM EDT Office Visit [place] [facility] [address], [address] [place] [address] Lana Belle MD [address] [place] [address] documented as of this encounter [...] on filedocumented in this encounter Care Teams Physical Therapy Nurse Relationship Specialty Start Date End Date Jorge Marcum MD [facility] [address] [address] PCP - General 05/16/24 Syed Bryan MD [facility] [address] [address] Referring Physician 05/16/24 Shelli Venegas [address] [place] [address] [place] [address] Lining Marker 05/16/24 Da Lorenzo MD [address] [place] [address] [place] [address] Referring Physician Cardiology 06/06/24 documented as of this encounter
--- OUTSIDE RECORDS SUMMARY | 2025-03-16 10:18 | XMS_ITS | Encounter Summary ---
Author Organization [facility] Address [address] [place] [place] [phone] Care Team Providers Care Recreation Teacher Name Role Phone Jorge Marcum MD Primary Care Provider + [phone] Syed Bryan MD Unavailable [phone] Shelli Venegsa Unavailable Da Lorenzo MD Unavailable [phone] Encounter Details Date Type Department Care Team (Late st Contact Info) Description 03/02/2024 Orders Only External Location [address] [place] [address] Pebbles Donaldson, ASSISTANT TECHNICIAN [address] [place] [phone] Social History Tobacco Use Types Packs/Day Years [...] Description 11/27/2026 10:30 AM EDT [facility] [address], [address] [place] [address] Lana Belle MD [address] [place] [address] documented as of this encounter Procedures Procedure Name Priority Date/Time Associated Diagnosis Comments US OUTSIDE IMAGES 03/02/2024 9:45 AM EDT documented in this encounter Results * US OUTSIDE IMAGES (03/02/2024 9:45 AM EDT) Anatomical Region Laterality Modality Ultrasound 03/02/2024 9:45 AM EDT us Pebbles N Mendoza ASSISTANT TECHNICIAN IMG US PROCEDURES Final Resu lt documented in this encounter Visit Diagnoses Not on filedocumented in this encounter Care Teams Recreation Teacher Relationship Specialty Start Date End Date Jorge Marcum MD [address] [place], [place] [phone] PCP - General 05/16/24 Syed Bryan MD [address] [place], [place] [address] Referring Physician 05/16/24 Shelli Venegas [address] [place] [address] [address] [place] [address] Chair Pad Maker 05/16/24 Da Lorenzo MD [address] [place] [address] Referring Physician Cardiology 06/06/24 documented as of this encounter
--- OUTSIDE RECORDS SUMMARY | 2025-03-16 10:18 | XMS_ITS | Encounter Summary ---
Author Organization Healthcare Address [address] [id number] Care Team Providers Care Aquatics Coordinator Name Role Phone Jorge Marcum MD Primary Care Provider + [phone] Syed Bryan MD Unavailable [phone] Shelli Venegas Unavailable Da Lorenoz MD Unavailable [phone] Encounter Details Date Type Department Care Team (Late st Contact Info) Description 03/31/2024 Orders Only External Location [address] [place] [address] Pebbles Donaldson, INSPECTOR CIRCUITRY NEGATIVE [address] [id number] Social History Tobacco Use Types Packs/Day Years [...] Description 11/27/2026 10:30 AM EDT Office Visit [facility] [address], [address] [place] [address] Lana Belle MD [address] [place] [address] documented as of this encounter Procedures Procedure Name Priority Date/Time Associated Diagnosis Comments CT OUTSIDE IMAGES 03/31/2024 10:55 AM EDT documented in this encounter Results * CT OUTSIDE IMAGES (03/31/2024 10:55 AM EDT) Anatomical Region Laterality Modality Computed Tomogra phy 03/31/2024 10:5 5 AM EDT us Pebbles Tadeo Mendoza INSPECTOR CIRCUITRY NEGATIVE IMG CT PROCEDURES Final Resu lt documented in this encounter Visit Diagnoses Not on filedocumented in this encounter Care Teams Aquatics Coordinator Relationship Specialty Start Date End Date Jorge Marcum MD [facility] [address] [id number] PCP - General 05/16/24 Syed Bryan MD [facility] [address] [place], [place] [id number] Referring Physician 05/16/24 Shelli Venegas [address] [place] [address] [address] [place] [address] Professor Of Sport Management 05/16/24 Da Lorenzo MD [facility] [address] [place], [place] [id number] Referring Physician Cardiology 06/06/24 documented as of this encounter
--- NOTE | 2025-03-16 10:19 | XR_ITS ---
FINAL REPORT CLINICAL HISTORY: OA knee COMPARISON: 08/31/2018 FINDINGS: RIGHT KNEE Two views were obtained. There is no fracture or dislocation. There is moderate medial compartment joint space narrowing, progressed since prior. Moderate chondrocalcinosis is identified. There are small osteophytes along the undersurface of the patella. No joint effusion is identified. No soft tissue abnormality is identified. IMPRESSION: Moderate changes of osteoarthritis. Reviewed, Interpreted and Dictated by Harmeet Modi MD Transcribed by Meaghan Atkins Authenticated and [facility]
--- NOTE | 2025-03-16 10:19 | XR_ITS ---
FINAL REPORT CLINICAL HISTORY: OA knee COMPARISON: 08/31/2018 FINDINGS: LEFT KNEE Two views were obtained. There is no fracture or dislocation. There is moderate medial compartment joint space narrowing, progressed since prior. There are small osteophytes along the undersurface of the patella. No joint effusion is identified. No soft tissue abnormality is identified. IMPRESSION: Mild to moderate changes of osteoarthritis. Reviewed, Interpreted and Dictated by Harmeet Modi MD Transcribed by Meaghan Atkins Authenticated and [facility]
--- OUTSIDE RECORDS SUMMARY | 2025-03-16 10:19 | XMS_ITS | Patient Health Record ---
[facility] [address] [id number] Care Team Providers Care Shipwright Supervisor Name Role Phone Chavez Marucmian Primary Care Provider [phone] Allergies No Known Allergies Results Component Value Reference Range Notes P-Vitamin D 25-Hydroxy Reviewed date:07/14/2024 10:19:47 AM Interpretation:51.2 Performing Lab: Notes/Report: CLIA: [id number] Vazquez Perry MD, Chair Trimmer [address] [place] [address] , [address], [place] [address] Test performed by [facility] Vitamin D 25-Hydroxy 51.2 30.0-100.0 ng/mL Interpretation of Vitamin D 25 OH: < 20 ng/mL - Deficiency 20 - 29 ng/mL - Insufficiency 30 - 100 ng/mL - Sufficiency > 100 ng/mL - Super-therapeutic- toxicity may occur above this level. Clinical correlation required. P-Basic Metabolic Panel (BMP ) Reviewed date:07/14/2024 10:19:47 AM Interpretation:gluc 165 Performing Lab: Notes/Report: Test performed by [facility] [address] [place] [address] , [address], [address] [place] [id number] Vazquez Perry MD, Chair Trimmer CLIA: [id number] Sodium 143 135-145 mmol/L Potassium 4.5 3.5-5.3 mmol/L Chloride 104 97-108 mmol/L CO2 29 22-32 mmol/L Glucose 165 65-99 mg/dL BUN 11 8-23 mg/dL Creatinine 0.90 0.70-1.30 mg/dL Calcium 9.2 8.6-10.4 mg/dL eGFR by Creatinine 90 >59 mL/min/1.73m2 Glycohemoglobin A1c (in hous e) Reviewed date:07/14/2024 10:19:47 AM Interpretation:7.8% Performing Lab: Notes/Report: 7.8% glycohemoglobin 7.8% 5 - 6.5 % Glucose (In-House) Reviewed date:07/14/2024 10:19:47 AM Interpretation:186 Performing Lab: Notes/Report: 186 blood glucose 186 74 - 106 mg/dL Medications Medication SIG (Take, Route, Frequency, Duration) [...] Vaccine Route Administration Date Status Comme nts Tetanus Tdap-Adacel (over 7yrs) IM Intramuscular 02/08/2020 Administered Prevnar (PCV20) IM Intramuscular 02/24/2023 Administered Prevnar (PCV13) IM Intramuscular 04/25/2018 Administered PNEUMOVAX 23 VACCINE IM Intramuscular 02/27/2020 Administe red Fluzone High Dose (65yr and older) IM Intramuscular 04/25/2018 Administered Fluzone High Dose (65yr and older) IM Intramuscular 02/08/2020 Administered Fluzone High Dose (65yr and older) IM Intramuscular 02/24/2023 Administered COVID 19 Juan Unknown 08/21/2020 Administered COVID 19 Juan Unknown 09/15/2021 Administered Problems Problem Type SNOMED Code ICD Code Onset Dates Problem Status W/U Status Risk Notes Problem Vitamin D deficiency (32785055) Vitamin D deficiency (E55.9) Active confirmed Problem Essential hypertension (73119584) Essential hypertension (I10) Active confirmed Problem Hyperlipidaemia (82125689) Hyperlipemia (E78.5) Active confirmed Problem Benign essential hypertension (1013496) Benign essential hypertension (I10) Active confirmed Problem Cholelithiasis without obstruction (83030244) Calculus of gallbladder without cholecystitis without obstruction (K80.20) Active confirmed Problem Type II diabetes mellitus without complication (754510662) Type 2 diabetes mellitus without complication (E11.9) Active confirmed Problem Atherosclerosis of coronary artery without angina pectoris (626752658492582) Atherosclerosis of chilkoot coronary artery of chilkoot heart without angina pectoris (I25.10) Active confirmed Problem Obstructive sleep apnea syndrome (47959392) Obstructive sleep apnea syndrome (G47.33) Active confirmed Problem Erectile dysfunction (disorder) (854719662) Erectile dysfunction, unspecified erectile dysfunction type (N52.9) Active confirmed Problem Hyperlipidaemia (01007988) Hyperlipidemia, unspecified hyperlipidemia type (E78.5) Active confirmed Problem Disorder of neck (275718896) Disorder of neck (M53.82) Active confirmed Problem Transient ischemic attack (777385187) TIA (transient ischemic attack) (G45.9) Active confirmed Problem Type II diabetes mellitus without complication (121782424) Controlled type 2 diabetes mellitus without complication, without long-term current use of insulin (E11.9) Active confirmed Problem History of excision of intestinal structure (339212386) S/P cholecystectomy (Z90.49) Active confirmed Problem Skin sensation disturbance (39299126) Burning sensation of lower extremity (R20.8) Active confirmed Problem Arthritis of left acromioclavicular joint (5610701397750323) Arthritis of left acromioclavicular joint (M19.012) Active confirmed Vital Signs Blood pressure diastolic 70 mm Hg 07/13/2024 Height 74 in 07/13/2024 Blood pressure systolic 120 mm Hg 07/13/2024 Weight 235.8 lbs 07/13/2024 BMI 30.27 kg/m2 07/13/2024 Encounters Encounter Location Date Provider Diagnosis [facility] [address] [place], [place] [id number] 07/13/2024 Jorge Avalon Type 2 diabetes nedra itus without complication E11.9 ; Essential hypertension I10 and Vitamin D deficiency E55.9 [facility] [address] [place], [place] [id number] 01/17/2025 Jorge Avalon [facility] [address] [place], [place] [id number] 03/31/2024 Jorge Avalon [facility] [address] [place], [place] [id number] 04/03/2024 Jorge Avalon Type 2 diabetes nedra itus without complication E11.9 [facility] [address] [place], [place] [id number] 04/10/2024 Jorge Avalon Polyarthralgia M25.5 0 ; Hyperlipidemia, unspecified hyperlipidemia type E78.5 ; Type 2 diabetes mellitus without complication E11.9 and Essential hypertension I10 [facility] [address] [place], [place] [id number] 05/29/2024 Jorge Avalon Type 2 diabetes nedra itus without complication E11.9 [facility] [address] [place], [place] [id number] 06/03/2024 Jorge Avalon [facility] [address] [place], [place] [id number] 06/27/2024 Jorge Avalon Type 2 diabetes nedra itus without complication E11.9 [facility] [address] [place] [id number] 07/14/2024 Jorge Avalon [facility] [address] [place], [place] [id number] 10/10/2024 Jorge Marcum Type 2 diabetes nedra itus without complication E11.9 Assessments Encounter Date Diagnosis (ICD Code) Assessment Notes Treatment Notes Treatment Clinical Notes Section Notes 04/03/2024 Type 2 diabetes mellitus without complication [...] Hyperlipidemia, unspecified hyperlipidemia type (ICD-10 - E78.5) 04/10/2024 Type 2 diabetes mellitus without complication (ICD-10 - E11.9) 04/10/2024 Essential hypertension (ICD-10 - I10) Plan Of Treatment No Information Insurance Providers Payer Name Payer Address Payer Phone Subscriber Number Group Number Insured Name Patient Relationship to Insured Coverage Start Date Coverage End Date LEIDY ALMANZAR [id number] [place] [address] [phone] [id number] Ryan Medrano Self - patient is the [...] Polyps Sleep Apnea TIA, 2022, treated at [facility] Surgical History Surgery Date(Month/Year) Hernia X 3 LT Knee Rectal Fistula Repair Percutaneous Coronary Intervention, Sten ts x 2 12/2010 CABG - 5 vesel bypasses 10/08/2011 Cholecystectomy [facility] Dr. Nick Colonoscopy 2018 Hospitalization History Reason Date(Month/Year) Cholecystitis and Cholecystectomy- [facility] 0 11/30- Gall Bladder Pain- [facility] ER 05/23/2020 Neck pain- [facility] ER 10/15/2014 Heart Surgery- [place] 10/08/2011
--- OUTSIDE RECORDS SUMMARY | 2025-03-16 10:20 | XMS_ITS | Clinical Summary ---
Author Organization [facility] Address [address] [place] [address] Care Team Providers Care Clerical Warehouse Worker Name Role Phone Jorge Marcum MD Primary Care Provider [phone] Allergies No known active allergies Medications Empagliflozin-m [...] - 5.60 % 08/04/2022 9:08 AM EST [facility] Blood Venipuncture / Unknown 08/04/2022 7:56 AM EST 08/04/2022 8:04 AM EST Narrative [facility] - 08/04/2022 9:08 AM EST Hemoglobin A1C Ranges: Increased Risk for Diabetes 5.7% to 6.4% Diabetes >= 6.5% Diabetic Goal < 7.0% us Angie Mcfarland [facility] BLOOD ORDERABLES Final R esult [facility]
[address] [place] [address], [place] [phone] from Last 3 Months or Most Recently Relevant to Health Maintenance Insurance [id number] [employer] [employer] Care Teams Clerical Warehouse Worker Relationship Specialty Start Date End Date Jorge Marcum MD [address] [facility] [address] [place] [address] PCP - General Family Medicine 08/04/22
--- OUTSIDE RECORDS SUMMARY | 2025-03-16 10:20 | XMS_ITS | Clinical Summary ---
Author Organization [facility] Address [address] [place] [address] Care Team Providers Care Dye House Helper Name Role Phone Jorge Marcum MD Primary Care Provider + [phone] Syed Bryan MD Unavailable [phone] Shelli Venegas Unavailable Da Lorenzo MD Unavailable [phone] Allergies No known active allergies Medications [...] Office Visit [facility] [address], [facility] [address] [place] [address] Lana Belle MD [address] [place] [address] Health Maintenance Due Date Last Done Comments [facility]-Hepatitis C Screening 1950 [facility]-Medicare Annual Wellness (AWV) 1950 [facility]-/Child/Adol SDOH Screenings 1950 [facility]- SDOH Screenings 1968 [facility]-Adult SDOH Screenings 1968 CT Colonography 10/08/1995 Colonoscopy 10/08/1995 [facility]-DNA 10/08/1995 FIT 10/08/1995 FOBT 10/08/1995 Sigmoidoscopy 10/08/1995 [facility]-Colorectal Cancer Screening 10/08/1995 [facility]-Zoster Vaccines (1 of 2) 2000 [id number] Vaccine (3 - season) 2025 09/15/2021, 08/21/2020 [...] age to complete this topic Insurance [employer] [place] MEDIC[employer] ADVANTAGE [employer] MEDICARE Care Teams Dye House Helper Relationship Specialty Start Date End Date Jorge Marcum MD Count includes the [facility] [place] [address] PCP - General 05/16/24 Syed Bryan MD [address] [place] [address] Referring Physician 05/16/24 Shelli Venegas [address] [place] [address] [place], [place] [address] Rail Tractor Operator 05/16/24 Da Lorenzo MD [address] [place], [place] [id number] Referring Physician Cardiology 06/06/24
== END 2025-03-16 23:59 | disposition home or self-care (01) ==
LOC: RAD 10:16
PROVIDERS: PCP Family Medicine; Visit Provider Family Medicine
DX: M17.11 Unilateral primary osteoarthritis, right knee (principal); M17.12 Unilateral primary osteoarthritis, left knee
CPT/HCPCS: 73560